=== PATIENT | female | born 1945 | race Two or more races ===

== ENCOUNTER 2024-06-21 09:10 | Inpatient (IN) | payer MEDICARE, OTHER ==
[~2024-06-21] VITALS: Ht 157.5 cm; Wt 62.0 kg
--- NOTE | 2024-06-21 09:26 | ED.PDOC ---
HPI Comments 79-year-old female presents with a chief complaint of chest pain x 2 weeks intermittently with associated headache. Patient states that her chest pain is localized substernally, non-radiating, describes as pressure, and is intermittent compared to constant. Patient reports that she also has a throbbing-like headache. Patient mentions that the pain has been gradually increasing over the past x 2 weeks. 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 Family History Family History: Reviewed,noncontributory to illness Social History Smoker: Non-Smoker Alcohol: Denies ETOH Use Drugs: Denies Drug Use Lives In: Home Constitutional: denies: chills, diaphoresis, fatigue, fever, malaise, sweats, weakness, others EENTM: denies: blurred vision, double vision, ear bleeding, ear discharge, ear drainage, ear pain, ear ringing, eye pain, eye redness, hearing loss, mouth pain, mouth swelling, nasal discharge, nose bleeding, nose congestion, nose pain, photophobia, tearing, throat pain, throat swelling, voice changes, others Respiratory: denies: cough, hemoptysis, orthopnea, SOB at rest, shortness of breath, SOB with excertion, stridor, wheezing, others Cardiovascular: reports: chest pain; denies: dizzy spells, diaphoresis, Dyspnea on exertion, edema, irregular heart beat, left arm pain, lightheadedness, palpitations, PND, syncope, others Gastrointestinal: denies: abdomen distended, abdominal pain, blood streaked bowels, constipated, diarrhea, dysphagia, difficulty swallowing, hematemesis, melena, nausea, poor appetite, poor fluid intake, rectal bleeding, rectal pain, vomiting, others Genitourinary: denies: abnormal vagina bleeding, burning, dyspareunia, dysuria, flank pain, frequency, hematuria, incontinence, pain, , vagina discharge, urgency, others Neurological: reports: headache; denies: dizziness, fainting, left sided numbness, left sided weakness, numbness, paresthesia, pre-existing deficit, right sided numbness, right sided weakness, seizure, speech problems, tingling, tremors, weakness, others Musculoskeletal: denies: back pain, gout, joint pain, joint swelling, muscle pain, muscle stiffness, neck pain, others Integumetry: denies: bruises, change in color, change in hair/nails, dryness, laceration, lesions, lumps, rash, wounds, others Allergic/Immunocompromised: denies: Difficulty Healing, Frequent Infections, Hives, Itching, others Hematologic/Lymphatic: denies: anemia, blood clots, easy bleeding, easy bruising, swollen glands, others Endocrine: denies: excessive hunger, excessive sweating, excessive thirst, excessive urination, flushing, intolerance to cold, intolerance to heat, unexplained weight gain, unexplained weight loss, others Psychiatric: denies: anxiety, bipolar disorder, depression, hopeless, panic disorder, schizophrenia, sleepless, suicidal, others All Other Systems: Reviewed and Negative Physical Exam General Appearance: No Apparent Distress, Normal HEENT: Normal ENT Inspection, Pharynx Normal, TMs Normal Neck: Full Range of Motion, Non-Tender, Normal, Normal Inspection Respiratory: Chest Non-Tender, Lungs Clear, No Accessory Muscle Use, No Respiratory Distress, Normal Breath Sounds Cardiovascular: No Edema, No JVD, No Murmur, No Gallop, Normal Peripheral Pulses, Regular Rate/Rhythm Breast Exam: Deferred Gastrointestinal: No Organomegaly, Non Tender, No Pulsatile Mass, Normal Bowel Sounds, Soft Genitalia: Deferred Pelvic: Deferred Rectal: Deferred Extremities: No calf tenderness, Normal capillary refill, Normal inspection, Normal range of motion, Non-tender, No pedal edema Musculoskeletal : Apperance: Normal Neurologic: Alert, 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 Was a procedure done?: No CP Differential Dx Differential Diagnosis: Electrolyte Disorder, Heart Failure, MAT, PAC's, PVC's Differential Diagnosis: CHF, HTN Essential, HTN Encephalopathy Differential Diagnosis: Gastritis X-Ray, Labs, Meds, VS Vital Signs Date Time Temp Pulse Resp B/P (MAP) Pulse Ox O2 Delivery O2 Flow Rate FiO2 06/21/24 10:15 82 06/21/24 09:47 85 06/21/24 09:47 98.2 85 17 144/76 (98) 96 98.2 06/21/24 09:45 86 12 96 Room Air* 0 21 06/21/24 09:27 98.4 80 18 100/61 (74) 100 06/21/24 09:14 94 Lab Test 06/21/24 10:12 06/21/24 09:30 06/21/24 09:21 Range/Units Troponin I High Sensitivity < 3 L < 3 L </=34 ng/L Urine Color Light-yellow Yellow Urine Clarity Clear Clear Urine pH 6.0 5.0-9.0 Urine Specific [place] 1.009 1.001-1.035 Urine Protein Trace H Negative Urine Ketones Negative Negative Urine Blood Negative Negative /uL Urine Nitrite Negative Negative Urine Bilirubin Negative Negative Urine Urobilinogen Normal Negative mg/dL Urine Leukocyte Esterase Negative Negative /uL Urine RBC 1 0 - 4 /hpf Urine WBC <1 0 - 5 /hpf Urine Squamous Epithelial Cells Few <5 /hpf Urine Bacteria None seen None Seen /hpf Urine Glucose Normal Normal mg/dL White Blood Count 4.6 4.4-10.8 10^3/uL Red Blood Count 4.01 4.0-5.20 10^6/uL Hemoglobin 11.1 L 12.2-16.2 g/dL Hematocrit 34.1 L 36.0-46.0 % Mean Corpuscular Volume 84.9 80.0-100.0 fL Mean Corpuscular Hemoglobin 27.7 L 28.0-32.0 pg Mean Corpuscular Hemoglobin Concent 32.6 32.0-36.0 g/dL Red Cell Distribution Width 15.3 H 11.8-14.3 % Platelet Count 198 140-450 10^3/uL Mean Platelet Volume 8.2 6.9-10.8 fL Neutrophils (%) (Auto) 47.5 37.0-80.0 % Lymphocytes (%) (Auto) 39.4 10.0-50.0 % Monocytes (%) (Auto) 7.2 0.0-12.0 % Eosinophils (%) (Auto) 4.8 0.0-7.0 % Basophils (%) (Auto) 1.1 0.0-2.0 % Neutrophils # (Auto) 2.2 1.6-8.6 10 ^3/uL Lymphocytes # (Auto) 1.8 0.4-5.4 10 ^3/uL Monocytes # (Auto) 0.3 0-1.3 10 ^3/uL Eosinophils # (Auto) 0.2 0-0.8 10 ^3/uL Basophils # (Auto) 0.1 0-0.2 10 ^3/uL Nucleated Red Blood Cells 0.0 % Sodium Level 141 136-145 mmol/L Potassium Level 3.7 3.5-5.1 mmol/L Chloride Level 106 98-107 mmol/L Carbon Dioxide Level 27 20-31 mmol/L Anion Gap 8 5-15 Blood Urea Nitrogen 14 9-23 mg/dL Creatinine 1.04 H 0.550-1.02 mg/dL Glomerular Filtration Rate Calc 54 >90 mL/min BUN/Creatinine Ratio 13.5 10.0-20.0 Serum Glucose 171 H 74-106 mg/dL Calcium Level 9.4 8.7-10.4 mg/dL Time of 1ST Reevaluation: 09:48 Reevaluation 1ST: Unchanged Patient Education/Counseling: Diagnosis, Treatment, Prognosis Family Education/Counseling: Diagnosis, Treatment, Prognosis Departure 1 Departure Time of Disposition: 11:31 (Patient presented with chest pain that was concerning for possible STEMI, ACS, PE, Pneumonia, Muscle Strain, COPD, Dissection. Data: 1. I ordered and reviewed the result of at least 3 labs including a CBC, BMP, and Troponin. 2. I independently interpreted the following tests: EKG which shows normal sinus and Chest X-ray which shows benign chest.Risk:This patient has a high risk of morbidity due to further diagnostic testing or treatment and may suffer from an acute cardiac or respiratory disorder. Workup reveals concern for ACS and patient should be admitted for further workup and possible expert consultation. ) Impression: Primary Impression: Acute chest pain Additional Impression: Generalized weakness Disposition: ADMITTED INPATIENT Admit to: Med Surg Condition: Serious Critical Care Note Critical Care Time?: Yes Critical care comment: Acute chest pain Authorized and Performed by: Candi Adames MD Total critical care time: Approximately 39 minutes Due to a high probability of clinically significant, life threatening deterioration, the patient required my highest level of preparedness to intervene emergently and I personally spent this critical care time directly and personally managing the patient. This critical care time included obtaining a history; examining the patient; pulse oximetry; ordering and review of studies; arranging urgent treatment with development of a management plan; evaluation of patient's response to treatment; frequent reassessment; and, discussions with other providers. This critical care time was performed to assess and manage the high probability of imminent, life-threatening deterioration that could result in multi-organ failure. It was exclusive of separately billable procedures and treating other patients and teaching time. Please see my other sections and the rest of the note for further information on patient assessment and treatment. Stability Stability form required: No Heart Score Heart Score: Heart Score Response (Comments) Value History Moderate Suspicious 1 EKG Repolarization Disturb 1 Age >65 2 Risk Factors >3 or Hx ASHD 2 Troponin 1-2 x's Normal limit 1 Total 7 I personally scribed for CANDI ADAMES MD ([email or web address]) on 06/21/24 at 09:26. Electronically submitted by Alejandro Pozo ([email or web address]). CANDI ADAMES MD Jun 21, 2024 09:26
[2024-06-21 09:45] VITALS: PULSE 86; RESP 12; O2SAT 96
[2024-06-21 09:47] LABS: Basophils # (auto) 0.1 10 ^3/uL (0-0.2); Basophils % (auto) 1.1 % (0.0-2.0); Eosinophils # (auto) 0.2 10 ^3/uL (0-0.8); Eosinophils % (auto) 4.8 % (0.0-7.0); Hematocrit 34.1 % (36.0-46.0); Hemoglobin 11.1 g/dL (12.2-16.2); Lymphocytes # (auto) 1.8 10 ^3/uL (0.4-5.4); Lymphocytes % (auto) 39.4 % (10.0-50.0); Mean Corpuscular Hemoglobin 27.7 pg (28.0-32.0); Mean Corpuscular Hgb Conc. 32.6 g/dL (32.0-36.0); Mean Corpuscular Volume 84.9 fL (80.0-100.0); Monocytes # (auto) 0.3 10 ^3/uL (0-1.3); Monocytes % (auto) 7.2 % (0.0-12.0); Neutrophils # (auto) 2.2 10 ^3/uL (1.6-8.6); Neutrophils % (auto) 47.5 % (37.0-80.0); Platelet Count (auto) 198 10^3/uL (140-450); Red Blood Cells 4.01 10^6/uL (4.0-5.20); Red Cell Distribution Width 15.3 % (11.8-14.3); White Blood Cell 4.6 10^3/uL (4.4-10.8)
[2024-06-21 09:50] LABS: Urine Bacteria None Seen /hpf (None Seen)
[2024-06-21 10:02] LABS: Anion Gap 8 (5-15); Carbon Dioxide 27 mmol/L (20-31); Chloride 106 mmol/L (98-107); Potassium 3.7 mmol/L (3.5-5.1); Sodium 141 mmol/L (136-145)
[2024-06-21 10:03] LABS: Calcium 9.4 mg/dL (8.7-10.4)
[2024-06-21 10:06] LABS: Urine Blood Negative /uL (Negative); Urine Clarity Clear (Clear); Urine Color Light-Yellow (Yellow); Urine Protein, UAD TRACE (Negative); Urine Specific Gravity 1.009 (1.001-1.035); Urine Urobilinogen Normal (Negative); Urine WBC <1 /hpf (0 - 5)
[2024-06-21 10:07] LABS: Glucose 171 mg/dL (74-106)
[2024-06-21 10:08] LABS: BUN/Creatinine Ratio 13.5 (10.0-20.0); Blood Urea Nitrogen 14 mg/dL (9-23)
--- NOTE | 2024-06-21 10:11 | DVH ---
CHEST RADIOGRAPH Indication: chest pain Technique: Single frontal view of the chest was obtained COMPARISON: None FINDINGS: Lines and Tubes: Left chest wall pacemaker Lungs: Pulmonary vascular congestion. Pleura: No effusion. No pneumothorax. Cardiomediastinal contours: Cardiomegaly Bones: Unremarkable IMPRESSION: Mild pulmonary vascular congestion
[2024-06-21] MEDS ORDERED: LORazepam 0.5 MG TAB PO PRN (11:45)
[2024-06-21] MEDS ORDERED: ONDANSETRON HCL 4 MG/2 ML VIAL IV PRN (11:45)
[2024-06-21] MEDS ORDERED: DEXTROSE (50%) 50ML SYRG IV PRN (11:45)
[2024-06-21] MEDS ORDERED: ZOLPIDEM TARTRATE 5 MG TAB PO PRN (11:45)
[2024-06-21] MEDS: ACCU-CHEK COMFORT CURVE STRIP VI SCH (12:00)
[2024-06-21] MEDS: InsuLIN REG 1unit/0.01ml Soln (100units/ml) SC SCH (12:00)
--- NOTE | 2024-06-21 12:22 | DVHHP2 ---
History of Present Illness Reason for Visit: Chest pain History of Present Illness 79-year-old obese patient with complaints of chest pain for the last few weeks patient denies having any medical history however on evaluation in the ED patient was shown to be both hypertensive as well as showing signs of hyperglycemia patient has no confirmation of having these issues however patient will be admitted to the hospital on ED recommendation for acute treatment assessment and continued evaluation for intractable chest pain on and off intermittently for the past 2 weeks to rule out ACS Review of Systems Constitutional: Yes: Weakness; No: Fever, Chills, Sweats, Malaise, Other Eyes: No: Pain, Vision change, Conjunctivae inflammation, Eyelid inflammation, Other, Redness ENT: No: Ear pain, Ear discharge, Nose pain, Nose discharge, Nose congestion, Mouth pain, Mouth swelling, Throat pain, Throat swelling, Other Respiratory: No: Cough, Dry, Shortness of breath, SOB with excertion, Wheezing, Hemoptysis, Pleuritic Pain, Sputum, Wheezing, Other Cardiovascular: Chest Pain, Palpitations; No: Orthopnea, Paroxysmal Noc. Dyspnea, Edema, Lt Headedness, Other Gastrointestinal: No: Nausea, Vomiting, Abdominal Pain, Diarrhea, Constipation, Melena, Hematochezia, Other Genitourinary: No Dysuria, No Frequency, No Incontinence, No Hematuria, No Retention, No Other Musculoskeletal: No: other, neck pain, shoulder pain, arm pain, back pain, hand pain, leg pain, foot pain Skin: No: Rash, Lesions, Jaundice, Bruising, Other Neurological: No: Weakness, Numbness, Incoordination, Change in speech, Co nfusion, Seizures, Other Allergies: Coded Allergies: NO KNOWN ALLERGIES (Unverified , 06/21/24) Medications Current Medications Medications Dose Ordered Sig/Becca Route Start Time Stop Time Status Last Admin Dose Admin Aspirin 81 mg DAILY PO 06/22/24 10:00 Clopidogrel Bisulfate 75 mg DAILY PO 06/22/24 10:00 Atorvastatin Calcium 40 mg HS PO 06/21/24 22:00 Carvedilol 6.25 mg Q12HR PO 06/21/24 22:00 Lisinopril 5 mg DAILY PO 06/22/24 10:00 Acetaminophen 650 mg Q6HP PRN PO 06/21/24 11:45 Zolpidem Tartrate 5 mg QHSP PRN PO 06/21/24 11:45 Lorazepam 0.5 mg Q6HP PRN PO 06/21/24 11:45 Docusate Sodium 100 mg DAILY PO 06/22/24 10:00 Ondansetron HCl 4 mg Q4HP PRN IV 06/21/24 11:45 Diagnostic Test (Pha) 1 strip IQ4HR 06/21/24 12:00 Insulin Human Regular IQ4HR SC 06/21/24 12:00 Dextrose 50 ml UD PRN IV 06/21/24 11:45 Exam Vital Signs Vital Signs Date Time Temp Pulse Resp B/P (MAP) Pulse Ox O2 Delivery O2 Flow Rate FiO2 06/21/24 10:15 82 06/21/24 09:47 98.2 17 144/76 (98) 96 98.2 06/21/24 09:45 Room Air* 0 21 General Appearance: Alert, Oriented X3, Cooperative HEENT: Atraumatic, PERRLA Respiratory: Clear to auscultation, Normal air movement Cardiovascular: Normal S1, Normal S2 Abdominal: Normal bowel sounds, Soft, No tenderness Extremities: No clubbing, No cyanosis Skin: No rashes, No breakdown Neuro: Normal gait, Normal speech Psych/Mental Status: Mood NL Labs/Xrays Labs Test 06/21/24 10:12 06/21/24 09:30 06/21/24 09:21 Range/Units Troponin I High Sensitivity < 3 L </=34 ng/L Urine Color Light-yellow Yellow Urine Clarity Clear Clear Urine pH 6.0 5.0-9.0 Urine Specific [place] 1.009 1.001-1.035 Urine Protein Trace H Negative Urine Ketones Negative Negative Urine Blood Negative Negative /uL Urine Nitrite Negative Negative Urine Bilirubin Negative Negative Urine Urobilinogen Normal Negative mg/dL Urine Leukocyte Esterase Negative Negative /uL Urine RBC 1 0 - 4 /hpf Urine WBC <1 0 - 5 /hpf Urine Squamous Epithelial Cells Few <5 /hpf Urine Bacteria None seen None Seen /hpf Urine Glucose Normal Normal mg/dL White Blood Count 4.6 4.4-10.8 10^3/uL Red Blood Count 4.01 4.0-5.20 10^6/uL Hemoglobin 11.1 L 12.2-16.2 g/dL Hematocrit 34.1 L 36.0-46.0 % Mean Corpuscular Volume 84.9 80.0-100.0 fL Mean Corpuscular Hemoglobin 27.7 L 28.0-32.0 pg Mean Corpuscular Hemoglobin Concent 32.6 32.0-36.0 g/dL Red Cell Distribution Width 15.3 H 11.8-14.3 % Platelet Count 198 140-450 10^3/uL Mean Platelet Volume 8.2 6.9-10.8 fL Neutrophils (%) (Auto) 47.5 37.0-80.0 % Lymphocytes (%) (Auto) 39.4 10.0-50.0 % Monocytes (%) (Auto) 7.2 0.0-12.0 % Eosinophils (%) (Auto) 4.8 0.0-7.0 % Basophils (%) (Auto) 1.1 0.0-2.0 % Neutrophils # (Auto) 2.2 1.6-8.6 10 ^3/uL Lymphocytes # (Auto) 1.8 0.4-5.4 10 ^3/uL Monocytes # (Auto) 0.3 0-1.3 10 ^3/uL Eosinophils # (Auto) 0.2 0-0.8 10 ^3/uL Basophils # (Auto) 0.1 0-0.2 10 ^3/uL Nucleated Red Blood Cells 0.0 % Sodium Level 141 136-145 mmol/L Potassium Level 3.7 3.5-5.1 mmol/L Chloride Level 106 98-107 mmol/L Carbon Dioxide Level 27 20-31 mmol/L Anion Gap 8 5-15 Blood Urea Nitrogen 14 9-23 mg/dL Creatinine 1.04 H 0.550-1.02 mg/dL Glomerular Filtration Rate Calc 54 >90 mL/min BUN/Creatinine Ratio 13.5 10.0-20.0 Serum Glucose 171 H 74-106 mg/dL Calcium Level 9.4 8.7-10.4 mg/dL Assessment/Plan Assessment/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 Chest pain ACS rule out Chest pain protocol Continue with new stated medications including aspirin beta-blockers lisinopril Patient with no stated history we will continue medications while inpatient and ruling out acute ACS Trips so far negative Patient with no stated history of diabetes However hypoglycemia noted We will do insulin sliding scale inpatient moderate q.4 Plan discussed with: Patient My Orders Orders - NIDIA CAO MD Procedure Category Date Status Time Admit ADMIT 06/21/24 Transmitted 11:35 Code Status CODE 06/21/24 Transmitted 11:35 Aspirin Tablet PHA 06/22/24 In Process 10:00 Clopidogrel Bisulfate PHA 06/22/24 In Process (Plavix) 10:00 Atorvastatin (Lipitor) PHA 06/21/24 In Process 22:00 Carvedilol Tablet PHA 06/21/24 In Process (Coreg Tablet) 22:00 Lisinopril Tablet PHA 06/22/24 In Process (Zestril Tablet) 10:00 Acetaminophen Tablet PHA 06/21/24 In Process (Tylenol Tablet) 11:45 Zolpidem Tartrate PHA 06/21/24 In Process (Ambien) 11:45 Lorazepam Tablet PHA 06/21/24 In Process (Ativan Tablet) 11:45 Docusate Sodium PHA 06/22/24 In Process Capsule (Colace 10:00 Complete Blood Count LAB 06/22/24 Verified 04:00 Basic Metabolic Panel LAB 06/22/24 Verified 04:00 Ondansetron Hcl PHA 06/21/24 In Process (Zofran) 11:45 Electrocardigram EKG 06/21/24 Logged 11:35 Cardiac JESSICA 06/21/24 In Process Rehabilitation - Outpa Notify Md Of Changes JESSICA 06/21/24 In Process From Base 11:35 Oxygen By Nasal RT 06/21/24 Transmitted Cannula 11:35 Glucose Blood PHA 06/21/24 In Process (Accu-Chek Comfort 12:00 Insulin R (Human) PHA 06/21/24 In Process (Insulin R) 12:00 Dextrose 50% Syringe PHA 06/21/24 In Process 11:45 Problem List: (1) Generalized weakness (2) Acute chest pain Date of Service: Jun 21, 2024 Billing Provider: NIDIA CAO MD Common Visit Codes: [id number] INP/OBS CARE (HIGH) NIDIA CAO MD Jun 21, 2024 12:22
[2024-06-21 12:34] VITALS: BP 153/76; PULSE 97; RESP 20; TEMP 97.8; O2SAT 95
[2024-06-21 12:48] VITALS: BP 153/76; PULSE 97; RESP 20; TEMP 97.8; O2SAT 95
[2024-06-21] MEDS ORDERED: APIX2.5T PO (13:03)
[2024-06-21] MEDS ORDERED: CETI10CA PO (13:04)
[2024-06-21] MEDS ORDERED: ERGO1CAP23 PO (13:09)
[2024-06-21] MEDS ORDERED: FLUO20TA42 PO (13:10)
[2024-06-21] MEDS ORDERED: FURO20TA3 PO (13:14)
[2024-06-21] MEDS ORDERED: ATOR40TA52 PO (13:15)
[2024-06-21] MEDS ORDERED: METO-289 PO (13:16)
[2024-06-21] MEDS ORDERED: MEMA1CAP3 PO ×2 (13:22→13:23)
[2024-06-21] MEDS ORDERED: POTA-36 PO (13:24)
[2024-06-21 17:34] VITALS: BP 149/70; PULSE 80; RESP 18; TEMP 98.3; O2SAT 95
--- NOTE | 2024-06-21 18:20 | ECG ---
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
--- NOTE | 2024-06-21 18:30 | ECG ---
[facility] Test Date: 2024-06-21 Test Time: 10:15:02 Pat Name: JOSEPH WALTON Department: ER Room: 0220 Gender: F Cook Night: LULÚ : 1945 Requested By: CANDI DE LOS SANTOS Order Number: [id number] Reading MD: Bry Simon Measurements Intervals [place] Rate: 82 P: 0 [place]: 0 QRS: 21 QRSD: 99 T: -12 QT: 452 QTc: 528 Interpretive Statements Atrial fibrillation Anteroseptal infarct, age indeterminate Borderline T abnormalities, inferior leads Prolonged QT interval Electronically Signed On 06-22-2024 14:16:10 PST by Bry Simon Please click the below link to view image of tracing.
--- NOTE | 2024-06-21 18:39 | ECG ---
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
[2024-06-21] MEDS: ACETAMINOPHEN 325 MG TAB PO PRN (20:10)
[2024-06-21] MEDS: ATORVASTATIN 20 MG TAB PO SCH (20:48)
[2024-06-21] MEDS: CARVEDILOL 3.125 MG TAB PO SCH (20:49)
[2024-06-21 21:10] VITALS: BP 142/75; PULSE 92; RESP 17; TEMP 98.1; O2SAT 96
[2024-06-21 22:00] VITALS: PULSE 94; RESP 18; O2SAT 96
[2024-06-22] VITALS (10 sets, daily range): BP systolic 100–135; BP diastolic 48–76; PULSE 62–85; RESP 15–19; TEMP 97.7–98.4; O2SAT 91–100
[2024-06-22 07:01] LABS: Basophils # (auto) 0 10 ^3/uL (0-0.2); Basophils % (auto) 0.8 % (0.0-2.0); Eosinophils # (auto) 0.2 10 ^3/uL (0-0.8); Eosinophils % (auto) 4.9 % (0.0-7.0); Hematocrit 31.4 % (36.0-46.0); Hemoglobin 10.4 g/dL (12.2-16.2); Lymphocytes % (auto) 45.3 % (10.0-50.0); Mean Corpuscular Hemoglobin 28.2 pg (28.0-32.0); Mean Corpuscular Hgb Conc. 33.2 g/dL (32.0-36.0); Mean Corpuscular Volume 84.8 fL (80.0-100.0); Monocytes # (auto) 0.3 10 ^3/uL (0-1.3); Monocytes % (auto) 7.8 % (0.0-12.0); Neutrophils # (auto) 1.8 10 ^3/uL (1.6-8.6); Neutrophils % (auto) 41.2 % (37.0-80.0); Nucleated Red Blood Cells % 0.2 %; Platelet Count (auto) 181 10^3/uL (140-450); Red Cell Distribution Width 15.3 % (11.8-14.3); White Blood Cell 4.4 10^3/uL (4.4-10.8)
[2024-06-22 07:06] LABS: Calcium 9.3 mg/dL (8.7-10.4); Chloride 107 mmol/L (98-107); Potassium 3.7 mmol/L (3.5-5.1); Sodium 139 mmol/L (136-145)
[2024-06-22 07:07] LABS: Anion Gap 5 (5-15); Carbon Dioxide 27 mmol/L (20-31)
[2024-06-22 07:12] LABS: BUN/Creatinine Ratio 15.6 (10.0-20.0); Blood Urea Nitrogen 15 mg/dL (9-23); Glucose 101 mg/dL (74-106)
[2024-06-22] MEDS: CLOPIDOGREL BISULFATE 75 MG TAB PO SCH (10:16)
[2024-06-22] MEDS: DOCUSATE SOD 100 MG CAP PO SCH (10:17)
[2024-06-22] MEDS: ASPirin 81 mg TAB PO SCH (10:17)
[2024-06-22] MEDS: LISINOPRIL 5 MG TAB PO SCH (10:19)
[2024-06-22] MEDS: HYDROcodone-ACET 5/325MG TAB PO PRN (11:46)
--- NOTE | 2024-06-22 12:32 | DVH ---
INDICATION: left leg pain COMPARISON: None TECHNIQUE: 3 views of the lumbar spine were obtained. FINDINGS: The lumbar vertebral alignment is normal. The intervertebral disc spaces are well-maintained. There is facet arthropathy at L4-L5 and L5-S1. No acute fracture. The paravertebral soft tissues are grossly unremarkable. IMPRESSION: 1. No acute fracture. 2. Facet arthropathy at L4-L5 and L5-S1.
--- NOTE | 2024-06-22 12:49 | DVHINCON2 ---
Date Seen: Jun 22, 2024 Referring Physician MD Janey Reason for Consultation Chest pain History of Present Illness This is a pleasant Swazi speaking 79-year-old female who presented to the emergency room with a chief complaint of chest pain x1 week. Describes her chest pain as left-sided, nonradiating, pressure-like, worse with exertion and associated with shortness of breath and palpitations. She underwent a 12 lead electrocardiogram revealing an atrial fibrillation rhythm at a controlled rate with non-specific changes to inferior leads. Serial troponin levels are negative. Follows up in the outpatient setting with primary auto design checker in [facility] with latest appointment being last month. States she moved to this area approximately 4 months ago and plans to transfer medical services in the near future. Denies undergoing any cardiac catheterizations and coronary angiograms in the past. Significant medical history includes unspecified atrial fibrillation on low-dose Eliquis/off antiarrhythmic, status post dual-chamber pacemaker implantation (Biotronik, 2016), hypertension, dyslipidemia, and anemia. Past Medical History Past medical history reviewed. No other significant than mentioned above. Past Surgical History Permanent pacemaker implantation (Biotronik), 2016 Family History: Cardiovascular disease G8 MOTHER, FHx: stomach cancer G8 FATHER, Family History Family history reviewed. Social History Denies the use of illicit drugs, alcohol, or tobacco use. Allergies: Coded Allergies: NO KNOWN ALLERGIES (Unverified , 06/21/24) Home Meds Reported Medications Potassium Chloride (POTASSIUM CHLORIDE CR) 10 Meq Tb, 8 MEQ PO DAILY, TAB 06/21/24 Memantine HCl-Donepezil HCl (Namzaric 7-10 mg) 1 Cap Cap, 1 CAP PO DAILY for MEMORY, CAP 06/21/24 Metoprolol Succinate (Metoprolol Succinate Er) 50 Mg Tab, 1 TAB PO DAILY, #30 TAB 5 Refills 06/21/24 Atorvastatin Calcium (ATORVASTATIN CALCIUM) 40 Mg Tab, 1 TAB PO AT NIGHT, #30 TAB 5 Refills 06/21/24 Furosemide (Furosemide) 20 Mg Tab, 1 TAB PO DAILY, #90 TAB 1 Refill 06/21/24 Fluoxetine Hcl (Fluoxetine Hcl) 20 Mg Tab, 0.5 TAB PO DAILY, #90 TAB 3 Refills 06/21/24 Ergocalciferol (VITAMIN D 13725 UNIT) 50,000 [place], [address] UNIT PO ONCE AT WEEK, CAP 06/21/24 Cetirizine Hcl (Zyrtec Allergy) 10 Mg Cap, 10 MG PO DAILY, CAP 06/21/24 Apixaban Base (ELIQUIS) 2.5 Mg Tab, 2.5 MG PO BID, TAB 06/21/24 Home Meds Home medications reviewed. Current Medications Current Medications Medications (Trade) Dose Ordered Sig/Becca Route PRN Reason Start Time Stop Time Status Last Admin Aspirin 81 mg DAILY PO 06/22/24 10:00 06/22/24 10:17 Clopidogrel Bisulfate (Plavix) 75 mg DAILY PO 06/22/24 10:00 06/22/24 10:16 Atorvastatin Calcium (Lipitor) 40 mg HS PO 06/21/24 22:00 06/21/24 20:48 Carvedilol (Coreg Tablet) 6.25 mg Q12HR PO 06/21/24 22:00 06/22/24 10:18 Lisinopril (Zestril Tablet) 5 mg DAILY PO 06/22/24 10:00 06/22/24 10:19 Docusate Sodium (Colace Capsule) 100 mg DAILY PO 06/22/24 10:00 06/22/24 10:17 Acetaminophen/ Hydrocodone Bitart ([employer] 5/325MG Tab) 1 tab Q6HPRN PRN PO MODERATE PAIN (4-6 PAIN SCALE) 06/22/24 11:00 06/22/24 11:46 Review of Systems Constitutional: No symptom reported Ears, Nose, & Throat: No symptom reported Eyes: No symptom reported Neurological: No symptoms reported Pulmonary/Respiratory: SOB Cardiovascular: Chest pain, palpitations Gastrointestinal: No symptom reported Genitourinary: No symptom reported Musculoskeletal: No symptom reported Skin: No symptom reported Psychiatric: No symptom reported Endocrine: No symptom reported Hemotologic/Lymphatic: No symptom reported Vital Signs Vital Signs Date Time Temp Pulse Resp B/P (MAP) Pulse Ox O2 Delivery O2 Flow Rate FiO2 06/22/24 10:19 115/67 06/22/24 10:18 85 06/22/24 08:59 97.9 19 95 97.9 06/21/24 22:00 Room Air* 0 21 Physical Exam General Appearance: Cooperative. Well developed. Well nourished. In no acute distress Head Exam: Normal inspection Neck Exam: Normal inspection. Non-tender. Normal alignment Pulmonary/Respiratory: Chest non-tender. Diminished bilateral breath sounds Cardiovascular/Chest: Irregularly irregular rate and rhythm. AFib, controlled rate. No murmurs. No JVD. Peripheral Pulses: 2+ Radial (R). 2+ Radial (L). 2+ Pedal (R). 2+ Pedal (L) Abdominal Exam: Normal bowel sounds. Soft. Nontender. No hepatospenomegaly. No masses Ankle Exam: Negative ankle edema Lower extremities: Negative lower extremity edema Neuro/Mental Status: A&O x4. Coherent Thoughts/Psych: Normal thought pattern. Appropriate mood and affect. Good judgement and insight. Pleasant Appearance: In no acute distress Skin Exam: Normal inspection. Normal color. Warm. Dry Labs/Diagnostic Data Labs Test 06/22/24 06:04 06/22/24 04:12 06/21/24 12:25 06/21/24 09:30 Range/Units White Blood Count 4.4 4.4-10.8 10^3/uL Red Blood Count 3.70 L 4.0-5.20 10^6/uL Hemoglobin 10.4 L 12.2-16.2 g/dL Hematocrit 31.4 L 36.0-46.0 % Mean Corpuscular Volume 84.8 80.0-100.0 fL Mean Corpuscular Hemoglobin 28.2 28.0-32.0 pg Mean Corpuscular Hemoglobin Concent 33.2 32.0-36.0 g/dL Red Cell Distribution Width 15.3 H 11.8-14.3 % Platelet Count 181 140-450 10^3/uL Mean Platelet Volume 8.5 6.9-10.8 fL Neutrophils (%) (Auto) 41.2 37.0-80.0 % Lymphocytes (%) (Auto) 45.3 10.0-50.0 % Monocytes (%) (Auto) 7.8 0.0-12.0 % Eosinophils (%) (Auto) 4.9 0.0-7.0 % Basophils (%) (Auto) 0.8 0.0-2.0 % Neutrophils # (Auto) 1.8 1.6-8.6 10 ^3/uL Lymphocytes # (Auto) 2.0 0.4-5.4 10 ^3/uL Monocytes # (Auto) 0.3 0-1.3 10 ^3/uL Eosinophils # (Auto) 0.2 0-0.8 10 ^3/uL Basophils # (Auto) 0 0-0.2 10 ^3/uL Nucleated Red Blood Cells 0.2 % Sodium Level 139 136-145 mmol/L Potassium Level 3.7 3.5-5.1 mmol/L Chloride Level 107 98-107 mmol/L Carbon Dioxide Level 27 20-31 mmol/L Anion Gap 5 5-15 Blood Urea Nitrogen 15 9-23 mg/dL Creatinine 0.96 0.550-1.02 mg/dL Glomerular Filtration Rate Calc 59 >90 mL/min BUN/Creatinine Ratio 15.6 10.0-20.0 Serum Glucose 101 74-106 mg/dL Calcium Level 9.3 8.7-10.4 mg/dL POC Glucose 119 H 70-106 mg/dl Troponin I High Sensitivity < 3 L </=34 ng/L Urine Color Light-yellow Yellow Urine Clarity Clear Clear Urine pH 6.0 5.0-9.0 Urine Specific [place] 1.009 1.001-1.035 Urine Protein Trace H Negative Urine Ketones Negative Negative Urine Blood Negative Negative /uL Urine Nitrite Negative Negative Urine Bilirubin Negative Negative Urine Urobilinogen Normal Negative mg/dL Urine Leukocyte Esterase Negative Negative /uL Urine RBC 1 0 - 4 /hpf Urine WBC <1 0 - 5 /hpf Urine Squamous Epithelial Cells Few <5 /hpf Urine Bacteria None seen None Seen /hpf Urine Glucose Normal Normal mg/dL Assessment Pain rule out coronary artery disease Rule out structural heart disease Presence of dual-chamber pacemaker (Biotronik, 2016) Unspecified atrial fibrillation, on low-dose Eliquis/off antiarrhythmic Hypertension Dyslipidemia Plan/Recommendation (Dr. Cardozo) The patient with chest pain was offered a cardiac catheterization and coronary angiogram on 06/22/2024. Patient and daughter/caregiver decided to hold off from any invasive procedures and prefer to follow-up with primary auto design checker and PCP as outpatient. Daughter is adamant for the patient to undergo any invasive work-up at this facility. In the meantime, initiate preload reduction, re-establish low-dose Eliquis therapy, and metoprolol. Hold off on antiplatelet therapy given advanced age. In the setting of an unremarkable echocardiogram, there is no further cardiac work-up indicated at this time. Thank you for allowing us to participate in this patient's care. Please call if you have any questions or concerns. This medical document was created using an electronic medical record system with voice recognition software and computerized dictation system. Although this document has been carefully reviewed, there might still be some phonetic and typographical errors. Occasional wrong-word or ``sound-alike substitutions may have occurred due to the inherent limitations of voice recognition software. These areas are purely typographical due to imperfections of the software programs and do not reflect any compromise in the patient's medical care. Please read the chart carefully and recognize, using context, where these substitutions have occurred. Plan discussed with: Patient, Daughter, Other Date of Service: Jun 22, 2024 Billing Provider: MARI CARDOZO MD Cardiology Common Codes: [id number] INP/OBS CARE (High) DULCE MARIA ANGLIN [facility] Jun 22, 2024 12:49
--- NOTE | 2024-06-22 13:06 | DVHPN2 ---
Subjective Continue to complain of left-sided chest pain; also complaining of lower back pain radiating to left lower extremity; staff helped with translation from Citizen Of [place] Reviewed: Care Plan, H&P, Labs, Medications, Previous Orders, Radiology, Other (Consultation) Changes from previous H/P or p: No Changes Objective Vitals Vital Signs Date Time Temp Pulse Resp B/P (MAP) Pulse Ox O2 Delivery O2 Flow Rate FiO2 06/22/24 10:19 115/67 06/22/24 10:18 85 06/22/24 08:59 97.9 19 95 97.9 06/21/24 22:00 Room Air* 0 21 Intake/Output Intake and Output 06/22/24 07:00 Intake Total 280 ml Balance 280 ml Intake Oral 280 ml Exam Welcome Hostess was a female nurse General Appearance: Alert, Oriented X3, Cooperative, No acute distress HEENT: Atraumatic Lungs: Other (Scattered occasional crackles) Chest/Breasts: Other (Tender left chest wall just below the breast; pacemaker in place with no signs of infection/trauma) Cardiovascular: Other (Irregularly irregular) Abdomen: Normal bowel sounds, Soft, No tenderness Back: Midline Tenderness (Lower back) Extremities: No edema Neuro: Normal speech, Cranial nerves 3-12 NL Psych/Mental Status: Mental status NL, Mood NL Medications Current Medications Medications Dose Ordered Sig/Becca Route Start Time Stop Time Status Last Admin Dose Admin Aspirin 81 mg DAILY PO 06/22/24 10:00 06/22/24 10:17 81 MG Clopidogrel Bisulfate 75 mg DAILY PO 06/22/24 10:00 06/22/24 10:16 75 MG Atorvastatin Calcium 40 mg HS PO 06/21/24 22:00 06/21/24 20:48 40 MG Carvedilol 6.25 mg Q12HR PO 06/21/24 22:00 06/22/24 10:18 6.25 MG Lisinopril 5 mg DAILY PO 06/22/24 10:00 06/22/24 10:19 5 MG Acetaminophen 650 mg Q6HP PRN PO 06/21/24 11:45 06/22/24 04:18 650 MG Zolpidem Tartrate 5 mg QHSP PRN PO 06/21/24 11:45 Lorazepam 0.5 mg Q6HP PRN PO 06/21/24 11:45 Docusate Sodium 100 mg DAILY PO 06/22/24 10:00 06/22/24 10:17 100 MG Ondansetron HCl 4 mg Q4HP PRN IV 06/21/24 11:45 Diagnostic Test (Pha) 1 strip IQ4HR 06/21/24 12:00 06/22/24 10:17 1 STRIP Insulin Human Regular IQ4HR SC 06/21/24 12:00 Dextrose 50 ml UD PRN IV 06/21/24 11:45 Acetaminophen/ Hydrocodone Bitart 1 tab Q6HPRN PRN PO 06/22/24 11:00 06/22/24 11:46 1 TAB Laboratory Results Laboratory Tests 06/22/24 06:04 Chemistry Test 06/22/24 06:04 Calcium Level 9.3 mg/dL (8.7-10.4) Urinalysis Test 06/21/24 09:30 Urine Color Light-yellow (Yellow) Urine Clarity Clear (Clear) Urine pH 6.0 (5.0-9.0) Urine Specific [place] 1.009 (1.001-1.035) Urine Protein Trace (Negative) H Urine Ketones Negative (Negative) Urine Blood Negative /uL (Negative) Urine Nitrite Negative (Negative) Urine Bilirubin Negative (Negative) Urine Urobilinogen Normal mg/dL (Negative) Urine Leukocyte Esterase Negative /uL (Negative) Urine RBC 1 /hpf (0 - 4) Urine WBC <1 /hpf (0 - 5) Urine Squamous Epithelial Cells Few /hpf (<5) Urine Bacteria None seen /hpf (None Seen) Urine Glucose Normal mg/dL (Normal) Labs and/or images reviewed: Labs reviewed by me, Image(s) reviewed by me Assessment/Plan Assessment/Plan An 79-year-old female patient; Citizen Of [place]-speaking; with multiple comorbidities; who presented to the emergency department with left-sided chest pain. #Left-sided chest pain; ACS ruled out; telemetry; reviewed echocardiogram; received one dose of antiplatelets medications; not on antiplatelet due to advanced age as per cardiology; on statin; cardiology is following; continue and adjust pain management as indicated; reviewed chest x-ray; continue monitoring #Low back pain with left sciatica; ordered lumbosacral spine x-ray; continue and adjust pain management as indicated; continue monitoring #Undetermined atrial fibrillation; on low-dose anticoagulation; not on antiarrhythmic; has a pacemaker; cardiology is following; telemetry; continue monitoring #Controlled diabetes mellitus type 2 with A1c of 6.6%; continue insulin sliding scale with hypoglycemia protocol; continue monitoring #Dyslipidemia; continue statin; continue monitoring #Status post pacemaker; unclear for what indication but could be related to undetermined atrial fibrillation; cardiology is following; telemetry; continue monitoring #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 Although this document has been carefully reviewed, there might still be some phonetic and typographical errors. These areas are purely typographical due to imperfections of the software programs, and do not reflect any compromise in the patient's medical care. Plan discussed with: Patient, Daughter, Other (Nurse) My Orders Orders - ALBA PORTER MD Procedure Category Date Status Time Transfer Orders XFER 06/22/24 Transmitted 10:56 * Cardiology Consult CONS 06/22/24 Transmitted 10:56 Lumbar Spine 3 View XY 06/22/24 Resulted 10:56 Hydrocodone-Acet PHA 06/22/24 In Process 5/325mg Tab ([place] 11:00 Date of Service: Jun 22, 2024 Billing Provider: ALBA PORTER MD Common Visit Codes: [id number] INP/OBS CARE(HIGH) Secondary Visit Codes: [id number] CARE PLAN 30 MINUTES (20 minutes) ALBA PORTER MD Jun 22, 2024 13:06
[2024-06-22] MEDS: FUROSEMIDE 40 MG/4 ML VIAL IV ONE (13:30)
[2024-06-22 13:51] LABS: Magnesium 1.8 mg/dL (1.6-2.6)
[2024-06-22] MEDS: FUROSEMIDE 20 MG/2 ML VIAL IV SCH (16:48)
--- NOTE | 2024-06-22 17:50 | DVHSR ---
APPROVED REPORT EXAM: Two-dimensional and M-mode echocardiogram with Doppler and color Doppler. Blood Pressure: 115/67 mmHg INDICATION Chest Pain Surgery/Intervention Pacemaker: RISK FACTORS Height: 5' 2", Weight: 133 DIMENSIONS LVDd3.8 (3.8-5.7cm)LA (2D)4.7 (1.9-4.0cm)Aortic Root2.7 (2.0-3.7cm) LVDs2.7 (2.5-4.0cm)LA (MM) (1.9-4.0cm)Aortic Cusp Exc1.4 (1.5-2.0cm) EF (%) 58.0 (55-70%)Rt. Atrium5.0 (1.9-4.0cm)Asc. Aorta cm IVSd1.1 (0.7-1.1cm)RV (D) (1.8-2.4cm) PWd1.0 (0.7-1.1cm) Mitral Valve MitralMitral Stenosis E wave1.10m/sMV Mean GR.mmHg A wave0.20m/sMV Peak GR.mmHg E/A ratio5.52D MVAcm2 Aortic Valve Aortic ValveAortic Stenosis V10.60m/Christine Mean GR.5mmHg V21.50m/Christine Peak GR.10mmHg LVOT Diameter1.9 (1.8-2.4cm)Doppler AVA1.13cm2 AI P 1/2 [id number] Pulmonic Valve V20.80m/s Tricuspid Valve TR Velocity2.60m/s [id number] Conclusion Normal left ventricular size and dimension. Normal ventricular systolic function estimate ejection f raction 55%. There is a grade 1 diastolic dysfunction. Normal right ventricular size and dimension. Normal right ventricular systolic function. Mildly inc reased right ventricular systolic [id number] mm of mercury Moderate biatrial enlargement Normal aortic valve structure and function. There is mild aortic valve regurgitation. Moderately severe mitral valve regurgitation. There is moderate tricuspid valve regurgitation The pulmonary valve is grossly normal. No pericardial effusion.
[2024-06-22] MEDS: APIXABAN 2.5 MG TAB PO SCH (21:38)
[2024-06-23] VITALS (7 sets, daily range): BP systolic 99–119; BP diastolic 34–66; PULSE 75–120; RESP 14–19; TEMP 97.6–98.2; O2SAT 92–98
[2024-06-23 06:08] LABS: Basophils # (auto) 0 10 ^3/uL (0-0.2); Basophils % (auto) 0.8 % (0.0-2.0); Eosinophils # (auto) 0.2 10 ^3/uL (0-0.8); Eosinophils % (auto) 5.5 % (0.0-7.0); Hematocrit 32.5 % (36.0-46.0); Hemoglobin 10.8 g/dL (12.2-16.2); Lymphocytes # (auto) 2.1 10 ^3/uL (0.4-5.4); Lymphocytes % (auto) 46.7 % (10.0-50.0); Mean Corpuscular Hemoglobin 27.9 pg (28.0-32.0); Mean Corpuscular Hgb Conc. 33.2 g/dL (32.0-36.0); Monocytes # (auto) 0.4 10 ^3/uL (0-1.3); Monocytes % (auto) 8.3 % (0.0-12.0); Neutrophils # (auto) 1.7 10 ^3/uL (1.6-8.6); Neutrophils % (auto) 38.7 % (37.0-80.0); Nucleated Red Blood Cells % 0.1 %; Platelet Count (auto) 193 10^3/uL (140-450); Red Blood Cells 3.87 10^6/uL (4.0-5.20); Red Cell Distribution Width 15.1 % (11.8-14.3); White Blood Cell 4.5 10^3/uL (4.4-10.8)
[2024-06-23 06:26] LABS: Alanine Aminotransferase 21 U/L (7-40); Albumin 3.6 g/dL (3.2-4.8); Alkaline Phosphatase 61 U/L (46-116); Anion Gap 6 (5-15); Aspartate Aminotransferase 14 U/L (13-40); BUN/Creatinine Ratio 15.2 (10.0-20.0); Blood Urea Nitrogen 15 mg/dL (9-23); Calcium 9.3 mg/dL (8.7-10.4); Carbon Dioxide 29 mmol/L (20-31); Chloride 106 mmol/L (98-107); Sodium 141 mmol/L (136-145)
[2024-06-23 06:27] LABS: Bilirubin, Total 0.7 mg/dL (0.2-1.0)
[2024-06-23 06:46] LABS: Glucose 118 mg/dL (74-106); Potassium 3.4 mmol/L (3.5-5.1)
[2024-06-23] MEDS: METOPROLOL SUCCINATE XL 50 MG TAB PO SCH (10:00)
--- NOTE | 2024-06-23 12:33 | DVHPN2 ---
Subjective Still complaining of left-sided chest pain and of lower back pain radiating to left lower extremity; staff helped with translation from [place] Reviewed: Care Plan, H&P, Labs, Medications, Previous Orders, Radiology, Other (Consultation) Changes from previous H/P or p: No Changes Objective Vitals Vital Signs Date Time Temp Pulse Resp B/P (MAP) Pulse Ox O2 Delivery O2 Flow Rate FiO2 06/23/24 10:00 90 107/42 06/23/24 08:30 97.6 19 98 97.6 06/23/24 08:00 Room Air* 0 21 Intake/Output Intake and Output 06/23/24 07:00 Intake Total 1120 ml Balance 1120 ml Intake Oral 1120 ml # Voids 9 # Bowel Movements 2 Exam Programmer Or Analyst was a female nurse General Appearance: Alert, Oriented X3, Cooperative, No acute distress HEENT: Atraumatic Lungs: Other (Scattered occasional crackles) Chest/Breasts: Other (Tender left chest wall just below the breast; pacemaker in place with no signs of infection/trauma) Cardiovascular: Other (Irregularly irregular) Abdomen: Normal bowel sounds, Soft, No tenderness Back: Midline Tenderness (Lower back) Extremities: No edema Neuro: Normal speech, Cranial nerves 3-12 NL Psych/Mental Status: Mental status NL, Mood NL Medications Current Medications Medications Dose Ordered Sig/Becca Route Start Time Stop Time Status Last Admin Dose Admin Atorvastatin Calcium 40 mg HS PO 06/21/24 22:00 06/22/24 21:38 40 MG Acetaminophen 650 mg Q6HP PRN PO 06/21/24 11:45 06/22/24 04:18 650 MG Zolpidem Tartrate 5 mg QHSP PRN PO 06/21/24 11:45 Lorazepam 0.5 mg Q6HP PRN PO 06/21/24 11:45 Docusate Sodium 100 mg DAILY PO 06/22/24 10:00 06/23/24 09:31 100 MG Ondansetron HCl 4 mg Q4HP PRN IV 06/21/24 11:45 Diagnostic Test (Pha) 1 strip IQ4HR 06/21/24 12:00 06/23/24 09:31 1 STRIP Insulin Human Regular IQ4HR SC 06/21/24 12:00 06/22/24 19:48 2 UNITS Dextrose 50 ml UD PRN IV 06/21/24 11:45 Furosemide 20 mg BIDD IV 06/22/24 18:00 06/22/24 16:48 20 MG Apixaban 2.5 mg BID PO 06/22/24 22:00 06/23/24 09:31 2.5 MG Metoprolol Succinate 25 mg DAILY PO 06/23/24 10:00 Acetaminophen/ Hydrocodone Bitart 2 tab Q6HPRN PRN PO 06/23/24 11:30 Laboratory Results Laboratory Tests 06/23/24 05:31 Chemistry Test 06/23/24 05:31 Albumin 3.6 g/dL (3.2-4.8) Calcium Level 9.3 mg/dL (8.7-10.4) Total Protein 6.0 g/dL (5.7-8.2) LFT Test 06/23/24 05:31 Alanine Aminotransferase (ALT) 21 U/L (7-40) Alkaline Phosphatase 61 U/L (46-116) Aspartate Amino Transferase (AST) 14 U/L (13-40) Total Bilirubin 0.7 mg/dL (0.2-1.0) Urinalysis Test 06/21/24 09:30 Urine Color Light-yellow (Yellow) Urine Clarity Clear (Clear) Urine pH 6.0 (5.0-9.0) Urine Specific [place] 1.009 (1.001-1.035) Urine Protein Trace (Negative) H Urine Ketones Negative (Negative) Urine Blood Negative /uL (Negative) Urine Nitrite Negative (Negative) Urine Bilirubin Negative (Negative) Urine Urobilinogen Normal mg/dL (Negative) Urine Leukocyte Esterase Negative /uL (Negative) Urine RBC 1 /hpf (0 - 4) Urine WBC <1 /hpf (0 - 5) Urine Squamous Epithelial Cells Few /hpf (<5) Urine Bacteria None seen /hpf (None Seen) Urine Glucose Normal mg/dL (Normal) Labs and/or images reviewed: Labs reviewed by me, Image(s) reviewed by me Assessment/Plan Assessment/Plan An 79-year-old female patient; [place]-speaking; with multiple comorbidities; who presented to the emergency department with left-sided chest pain. #Left-sided chest pain; ACS ruled out; telemetry; reviewed echocardiogram; received one dose of antiplatelets medications; not on antiplatelet due to advanced age as per cardiology; on statin; cardiology is following; continue and adjust pain management as indicated; reviewed chest x-ray; continue monitoring #Low back pain with left sciatica; reviewed lumbosacral spine x-ray; ordered Doppler ultrasound of left lower extremities that showed no DVTs; continue and adjust pain management as indicated; continue monitoring #Undetermined atrial fibrillation; on low-dose anticoagulation; not on antiarrhythmic; has a pacemaker; cardiology is following; telemetry; continue monitoring #Controlled diabetes mellitus type 2 with A1c of 6.6%; continue insulin sliding scale with hypoglycemia protocol; continue monitoring #Dyslipidemia; continue statin; continue monitoring #Status post pacemaker; unclear for what indication but could be related to undetermined atrial fibrillation; cardiology is following; telemetry; continue monitoring #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; continue antihypertensive medication as indicated; continue monitoring #Acute on chronic diastolic heart failure; continue IV diuresis; telemetry; strict input and output monitoring; cardiology is following; continue monitoring #LAMAR; most likely vasomotor nephropathy; avoid nephrotoxic agents; continue monitoring #Hypokalemia due to diuresis; replace as needed; ordered magnesium level; continue monitoring #Prolonged QTc; telemetry; avoid medication that could prolonged QTc; cardiology is following; continue monitoring #Normocytic anemia; most likely inflammatory; no symptoms/signs of bleeding; continue monitoring This medical document was created using an electronic medical record system with computerized dictation system. Although this document has been carefully reviewed, there might still be some phonetic and typographical errors. These areas are purely typographical due to imperfections of the software programs, and do not reflect any compromise in the patient's medical care. Plan discussed with: Patient, Daughter, Other (Nurse) My Orders Orders - ALBA PORTER MD Procedure Category Date Status Time Hydrocodone-Acet PHA 06/23/24 In Process 5/325mg Tab ([place] 11:30 Lt Lower Dvt US 06/23/24 Taken 11:28 Date of Service: Jun 23, 2024 Billing Provider: ALBA PORTER MD Common Visit Codes: [id number] INP/OBS CARE(HIGH) ALBA PORTER MD Jun 23, 2024 12:33
--- NOTE | 2024-06-23 13:03 | DVH ---
Procedure: US LT Lower DVT Study Date and Requested Time: 06/23/2024 11:59 AM History: Pain Comparison: None Technique: Multiple high resolution jurado-scale images with and without compression obtained of the le ft lower extremity veins, including the common femoral vein, deep femoral vein, proximal mid and dist al superficial femoral vein, and popliteal vein. Additional limited images of the greater saphenous v ein also obtained. Augmentation performed as indicated. Color and spectral doppler flow images obtain ed as indicated. Findings: No visible intraluminal venous thrombus. No evidence of incompressibility or abnormal color or spectr al Doppler flow visualized in the left lower extremity veins including, the common femoral vein, deep femoral vein, proximal mid and distal superficial femoral vein, and popliteal vein. Greater saphenou s vein grossly unremarkable. Impression: No sonographic evidence of left lower extremity deep venous thrombosis.
[2024-06-23] MEDS: POTASSIUM EFFERVESENT TAB 25 MEQ PO ONE (16:36)
[2024-06-24] VITALS (8 sets, daily range): BP systolic 96–132; BP diastolic 38–58; PULSE 76–130; RESP 12–18; TEMP 97.4–98.3; O2SAT 93–97
[2024-06-24] MEDS: HYDROcodone-ACET 5/325MG TAB PO PRN (03:06)
[2024-06-24 07:07] LABS: Anion Gap 7 (5-15); Carbon Dioxide 28 mmol/L (20-31); Chloride 105 mmol/L (98-107); Potassium 3.7 mmol/L (3.5-5.1); Sodium 140 mmol/L (136-145)
[2024-06-24 07:08] LABS: Calcium 9.5 mg/dL (8.7-10.4)
[2024-06-24 07:13] LABS: BUN/Creatinine Ratio 15.3 (10.0-20.0); Blood Urea Nitrogen 13 mg/dL (9-23)
[2024-06-24 07:14] LABS: Glucose 116 mg/dL (74-106); Magnesium 1.6 mg/dL (1.6-2.6)
[2024-06-24] MEDS ORDERED: HYDROcodone-ACET 10/325MG TAB PO PRN (09:00)
[2024-06-24] MEDS: HYDROcodone-ACET 10/325MG TAB PO PRN (09:27)
[2024-06-24] MEDS ORDERED: HYDR-4798 PO (12:04)
--- NOTE | 2024-06-24 12:06 | DVHPN2 ---
Subjective Still complaining of left-sided chest pain and of lower back pain radiating to left lower extremity; staff helped with translation from Scottish Reviewed: Care Plan, H&P, Labs, Medications, Previous Orders, Radiology, Other (Consultation) Changes from previous H/P or p: No Changes Objective Vitals Vital Signs Date Time Temp Pulse Resp B/P (MAP) Pulse Ox O2 Delivery O2 Flow Rate FiO2 06/24/24 09:45 111 96/52 06/24/24 09:00 97.9 18 95 97.9 06/24/24 08:00 Room Air* 0 21 Intake/Output Intake and Output 06/24/24 07:00 Intake Total 1220 ml Output Total 0 ml Balance 1220 ml Intake Oral 1220 ml Output Stool Total 0 ml # Voids 4 Exam Copier Repair Technician was a female nurse General Appearance: Alert, Oriented X3, Cooperative, No acute distress HEENT: Atraumatic Lungs: Other (Scattered occasional crackles) Chest/Breasts: Other (Tender left chest wall just below the breast; pacemaker in place with no signs of infection/trauma) Cardiovascular: Other (Irregularly irregular) Abdomen: Normal bowel sounds, Soft, No tenderness Back: Midline Tenderness (Lower back) Extremities: No edema Neuro: Normal speech, Cranial nerves 3-12 NL Psych/Mental Status: Mental status NL, Mood NL Medications Current Medications Medications Dose Ordered Sig/Becca Route Start Time Stop Time Status Last Admin Dose Admin Atorvastatin Calcium 40 mg HS PO 06/21/24 22:00 06/23/24 21:21 40 MG Acetaminophen 650 mg Q6HP PRN PO 06/21/24 11:45 06/23/24 21:27 650 MG Zolpidem Tartrate 5 mg QHSP PRN PO 06/21/24 11:45 Lorazepam 0.5 mg Q6HP PRN PO 06/21/24 11:45 Docusate Sodium 100 mg DAILY PO 06/22/24 10:00 06/24/24 11:15 100 MG Ondansetron HCl 4 mg Q4HP PRN IV 06/21/24 11:45 Diagnostic Test (Pha) 1 strip IQ4HR 06/21/24 12:00 06/24/24 11:15 1 STRIP Insulin Human Regular IQ4HR SC 06/21/24 12:00 06/23/24 14:01 3 UNITS Dextrose 50 ml UD PRN IV 06/21/24 11:45 Furosemide 20 mg BIDD IV 06/22/24 18:00 06/23/24 16:42 20 MG Apixaban 2.5 mg BID PO 06/22/24 22:00 06/24/24 09:44 2.5 MG Metoprolol Succinate 25 mg DAILY PO 06/23/24 10:00 Acetaminophen/ Hydrocodone Bitart 1 tab Q6HP PRN PO 06/24/24 09:15 06/24/24 09:27 1 TAB Laboratory Results Laboratory Tests 06/23/24 05:31 06/24/24 05:57 Chemistry Test 06/24/24 05:57 Calcium Level 9.5 mg/dL (8.7-10.4) Magnesium Level 1.6 mg/dL (1.6-2.6) Urinalysis Test 06/21/24 09:30 Urine Color Light-yellow (Yellow) Urine Clarity Clear (Clear) Urine pH 6.0 (5.0-9.0) Urine Specific [place] 1.009 (1.001-1.035) Urine Protein Trace (Negative) H Urine Ketones Negative (Negative) Urine Blood Negative /uL (Negative) Urine Nitrite Negative (Negative) Urine Bilirubin Negative (Negative) Urine Urobilinogen Normal mg/dL (Negative) Urine Leukocyte Esterase Negative /uL (Negative) Urine RBC 1 /hpf (0 - 4) Urine WBC <1 /hpf (0 - 5) Urine Squamous Epithelial Cells Few /hpf (<5) Urine Bacteria None seen /hpf (None Seen) Urine Glucose Normal mg/dL (Normal) Labs and/or images reviewed: Labs reviewed by me, Image(s) reviewed by me Assessment/Plan Assessment/Plan An 79-year-old female patient; Scottish-speaking; with multiple comorbidities; who presented to the emergency department with left-sided chest pain. #Left-sided chest pain; ACS ruled out; telemetry; reviewed echocardiogram; received one dose of antiplatelets medications; not on antiplatelet due to advanced age as per cardiology; on statin; cardiology is following; continue and adjust pain management as indicated; reviewed chest x-ray; continue monitoring #Low back pain with left sciatica; reviewed lumbosacral spine x-ray; Doppler ultrasound of left lower extremities that showed no DVTs; continue and adjust pain management as indicated; continue monitoring #Undetermined atrial fibrillation; on low-dose anticoagulation; not on antiarrhythmic; has a pacemaker; cardiology is following; telemetry; continue monitoring #Controlled diabetes mellitus type 2 with A1c of 6.6%; continue insulin sliding scale with hypoglycemia protocol; continue monitoring #Dyslipidemia; continue statin; continue monitoring #Status post pacemaker; unclear for what indication but could be related to undetermined atrial fibrillation; cardiology is following; telemetry; continue monitoring #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; continue antihypertensive medication as indicated; continue monitoring #Acute on chronic diastolic heart failure; continue IV diuresis; telemetry; strict input and output monitoring; cardiology is following; continue monitoring #LAMAR; most likely vasomotor nephropathy; avoid nephrotoxic agents; continue monitoring #Hypokalemia due to diuresis; replace as needed; ordered magnesium level; continue monitoring #Prolonged QTc; telemetry; avoid medication that could prolonged QTc; cardiology is following; continue monitoring #Normocytic anemia; most likely inflammatory; no symptoms/signs of bleeding; continue monitoring Possible discharge later today This medical document was created using an electronic medical record system with computerized dictation system. Although this document has been carefully reviewed, there might still be some phonetic and typographical errors. These areas are purely typographical due to imperfections of the software programs, and do not reflect any compromise in the patient's medical care. Plan discussed with: Patient, Other (Nurse) My Orders Orders - ALBA PORTER MD Procedure Category Date Status Time Hydrocodone-Acet PHA 06/24/24 In Process 10/325mg Tab ([place] 09:15 Date of Service: Jun 24, 2024 Billing Provider: ALBA PORTER MD Common Visit Codes: [id number] INP/OBS CARE(MOD) ALBA PORTER MD Jun 24, 2024 12:06
[2024-06-25 01:00] VITALS: BP 110/55; PULSE 125; RESP 16; TEMP 98; O2SAT 95
[2024-06-25] MEDS: dilTIAZem 25 MG/5 ML VIAL IV ONE ×2 (02:15→05:09)
[2024-06-25 05:00] VITALS: BP 100/50; PULSE 90; RESP 16; TEMP 97.8; O2SAT 98
[2024-06-25 08:00] VITALS: PULSE 158
--- NOTE | 2024-06-25 08:58 | DVHPN2 ---
Consult Progress Note Date Seen: Jun 25, 2024 Subjective Review of Systems: CVS:Normal, RESPIRATORY:Normal, MSK:Abnormal, NEURO:Normal Other Systems: C/o LLE pain. Notified of A-fib with RVR Objective vital signs Vital Sign Date Time Temp Pulse Resp B/P (MAP) Pulse Ox O2 Delivery O2 Flow Rate FiO2 06/25/24 06:23 121/55 06/25/24 05:00 97.8 90 16 98 97.8 06/24/24 20:00 Room Air* 0 21 Total Intake and Output 06/24/24 06/24/24 06/25/24 15:00 23:00 07:00 Intake Total 180 ml 800 ml 450 ml Balance 180 ml 800 ml 450 ml medications Current Medications Medications Dose Ordered Sig/[place]cca Route Start Time Stop Time Status Last Admin Dose Admin Atorvastatin Calcium 40 mg HS PO 06/21/24 22:00 06/24/24 21:12 40 MG Acetaminophen 650 mg Q6HP PRN PO 06/21/24 11:45 06/23/24 21:27 650 MG Zolpidem Tartrate 5 mg QHSP PRN PO 06/21/24 11:45 Lorazepam 0.5 mg Q6HP PRN PO 06/21/24 11:45 Docusate Sodium 100 mg DAILY PO 06/22/24 10:00 06/24/24 11:15 100 MG Ondansetron HCl 4 mg Q4HP PRN IV 06/21/24 11:45 Diagnostic Test (Pha) 1 strip IQ4HR 06/21/24 12:00 06/25/24 04:18 1 STRIP Insulin Human Regular IQ4HR SC 06/21/24 12:00 06/25/24 04:18 2 UNITS Dextrose 50 ml UD PRN IV 06/21/24 11:45 Furosemide 20 mg BIDD IV 06/22/24 18:00 06/25/24 06:23 20 MG Apixaban 2.5 mg BID PO 06/22/24 22:00 06/24/24 21:13 2.5 MG Metoprolol Succinate 25 mg DAILY PO 06/23/24 10:00 Acetaminophen/ Hydrocodone Bitart 1 tab Q6HP PRN PO 06/24/24 09:15 06/25/24 02:21 1 TAB Examination: LUNGS:Normal, CVS:Abnormal (A-fib with RVR), NEURO:Normal laboratory and microbiology Laboratory Tests 06/24/24 05:57 06/23/24 05:31 Test 06/24/24 05:57 Range/Units Serum Glucose 116 H 74-106 mg/dL Problem List/Assessment/Plan Problem List/Assessment/Plan Chest pain rule out coronary artery disease Presence of dual-chamber pacemaker ([employer], 2016) Unspecified atrial fibrillation, on low-dose Eliquis/off antiarrhythmic Mitral valve regurgitation, moderate-severe Hypertension Dyslipidemia Plan/Recommendation (Dr. Cardozo) The patient with chest pain was offered a cardiac catheterization and coronary angiogram on 06/22/2024. Patient and daughter/caregiver decided to hold off from any invasive procedures and prefer to follow-up with primary flag signaler and PCP as outpatient. Daughter is adamant for the patient to undergo any invasive work-up at this facility. We recommend outpatient ischemic work-up as well as a TESSA to further determine need for mitral valve repair/replacement. Notified of atrial fibrillation with RVR. It was noted metoprolol therapy has been held for two days. Medicate with metoprolol if MAP > 65 mmHg. Load on digoxin therapy for rate control and continue maintenance dosage daily. Replete electrolytes, K>4 and Mg>2. Continue low-dose Eliquis therapy and hold off on antiplatelet therapy given advanced age. Consider daily blood work during admission. In the setting of a controlled rate, there is no further cardiac work-up indicated at this time. Thank you for allowing us to participate in this patient's care. Please call if you have any questions or concerns. This medical document was created using an electronic medical record system with voice recognition software and computerized dictation system. Although this document has been carefully reviewed, there might still be some phonetic and typographical errors. Occasional wrong-word or ``sound-alike substitutions may have occurred due to the inherent limitations of voice recognition software. These areas are purely typographical due to imperfections of the software programs and do not reflect any compromise in the patient's medical care. Please read the chart carefully and recognize, using context, where these substitutions have occurred. Plan discussed with: Patient, Other Date of Service: Jun 25, 2024 Billing Provider: MARI CARDOZO MD Cardiology Common Codes: [id number] [facility]ARE([facility] DULCE MARIA ANGLIN [facility] Jun 25, 2024 08:58
[2024-06-25 09:00] VITALS: BP 98/62; PULSE 135; RESP 17; TEMP 98; O2SAT 93
[2024-06-25] MEDS: MAGNESIUM SULFATE 1GM/100ML 100 ML IV ONE (09:46)
[2024-06-25] MEDS: POTASSIUM CHL 20 Meq TABLET PO ONE (09:49)
[2024-06-25] MEDS: DIGOXIN (250MCG/ML) 2 ML AMPULE IV ONE (09:49)
[2024-06-25] MEDS: ACCU-CHEK COMFORT CURVE STRIP VI SCH (10:15)
[2024-06-25] MEDS: InsuLIN REG 1unit/0.01ml Soln (100units/ml) SC SCH (11:45)
[2024-06-25 13:00] VITALS: BP 133/61; PULSE 79; RESP 17; TEMP 98.4; O2SAT 97
--- NOTE | 2024-06-25 13:14 | DVHDS2 ---
Discharge Summary Date of Admission Jun 21, 2024 at 11:35 Date of Discharge: Jun 25, 2024 Admitting Diagnosis Chest pain Labs/Diagnostic Data: Laboratory Results Test 06/25/24 08:15 06/24/24 05:57 06/23/24 05:31 06/22/24 06:04 POC Glucose 123 mg/dl (70-106) Sodium Level 140 mmol/L (136-145) Potassium Level 3.7 mmol/L (3.5-5.1) Chloride Level 105 mmol/L (98-107) Carbon Dioxide Level 28 mmol/L (20-31) Anion Gap 7 (5-15) Blood Urea Nitrogen 13 mg/dL (9-23) Creatinine 0.85 mg/dL (0.550-1.02) Glomerular Filtration Rate Calc 69 mL/min (>90) BUN/Creatinine Ratio 15.3 (10.0-20.0) Serum Glucose 116 mg/dL (74-106) Calcium Level 9.5 mg/dL (8.7-10.4) Magnesium Level 1.6 mg/dL (1.6-2.6) White Blood Count 4.5 10^3/uL (4.4-10.8) Red Blood Count 3.87 10^6/uL (4.0-5.20) Hemoglobin 10.8 g/dL (12.2-16.2) Hematocrit 32.5 % (36.0-46.0) Mean Corpuscular Volume 84.0 fL (80.0-100.0) Mean Corpuscular Hemoglobin 27.9 pg (28.0-32.0) Mean Corpuscular Hemoglobin Concent 33.2 g/dL (32.0-36.0) Red Cell Distribution Width 15.1 % (11.8-14.3) Platelet Count 193 10^3/uL (140-450) Mean Platelet Volume 8.2 fL (6.9-10.8) Neutrophils (%) (Auto) 38.7 % (37.0-80.0) Lymphocytes (%) (Auto) 46.7 % (10.0-50.0) Monocytes (%) (Auto) 8.3 % (0.0-12.0) Eosinophils (%) (Auto) 5.5 % (0.0-7.0) Basophils (%) (Auto) 0.8 % (0.0-2.0) Neutrophils # (Auto) 1.7 10 ^3/uL (1.6-8.6) Lymphocytes # (Auto) 2.1 10 ^3/uL (0.4-5.4) Monocytes # (Auto) 0.4 10 ^3/uL (0-1.3) Eosinophils # (Auto) 0.2 10 ^3/uL (0-0.8) Basophils # (Auto) 0 10 ^3/uL (0-0.2) Nucleated Red Blood Cells 0.1 % Total Bilirubin 0.7 mg/dL (0.2-1.0) Aspartate Amino Transferase (AST) 14 U/L (13-40) Alanine Aminotransferase (ALT) 21 U/L (7-40) Alkaline Phosphatase 61 U/L (46-116) Total Protein 6.0 g/dL (5.7-8.2) Albumin 3.6 g/dL (3.2-4.8) Hemoglobin A1c 6.6 % A1C (<5.7) B-Type Natriuretic Peptide 334.66 pg/mL (0-100) Triglycerides Level 71 mg/dL (< 150) Cholesterol Level 102 mg/dL (< 200) LDL Cholesterol 42 mg/dL (< 100) HDL Cholesterol 46 mg/dL (40-59) Thyroid Stimulating Hormone (TSH) 2.17 uIU/mL (0.55-4.78) Test 06/21/24 12:25 06/21/24 09:30 Troponin I High Sensitivity < 3 ng/L (</=34) Urine Color Light-yellow (Yellow) Urine Clarity Clear (Clear) Urine pH 6.0 (5.0-9.0) Urine Specific [place] 1.009 (1.001-1.035) Urine Protein Trace (Negative) Urine Ketones Negative (Negative) Urine Blood Negative /uL (Negative) Urine Nitrite Negative (Negative) Urine Bilirubin Negative (Negative) Urine Urobilinogen Normal mg/dL (Negative) Urine Leukocyte Esterase Negative /uL (Negative) Urine RBC 1 /hpf (0 - 4) Urine WBC <1 /hpf (0 - 5) Urine Squamous Epithelial Cells Few /hpf (<5) Urine Bacteria None seen /hpf (None Seen) Urine Glucose Normal mg/dL (Normal) Other Laboratory Tests 06/24/24 05:57 06/23/24 05:31 Brief Hx & Hospital Course: An 79-year-old female patient; Kyrgyz-speaking; with multiple comorbidities; who presented to the emergency department with left-sided chest pain. Details as below: #Left-sided chest pain; ACS was not ruled out as the patient and her daughter refused further evaluation by Cardiology at this hospital; was on telemetry; reviewed echocardiogram; received one dose of antiplatelets medications; not on antiplatelet due to advanced age as per cardiology; on statin; reviewed the available imaging studies; sent [place] to local pharmacy and the patient received 14 tablets as per insurance; to follow up with discharge clinic on Thursday as documented below; to follow up with her oriental rug repairer upon discharge #Low back pain with left sciatica; reviewed lumbosacral spine x-ray; Doppler ultrasound of left lower extremities that showed no DVTs; pain management as above #Undetermined atrial fibrillation; on low-dose anticoagulation; not on antiarrhythmic; has a pacemaker; was on telemetry; evaluated by Cardiology; to follow up with her oriental rug repairer upon discharge #Controlled diabetes mellitus type 2 with A1c of 6.6%; to resume home medications upon discharge #Dyslipidemia; resume home statin upon discharge #Status post pacemaker; unclear for what indication but could be related to undetermined atrial fibrillation; evaluated by Cardiology during admission; was on telemetry; to follow up with her oriental rug repairer upon discharge #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; continue antihypertensive medication as indicated; continue monitoring #Acute on chronic diastolic heart failure; received IV diuresis; was on telemetry; strict input and output monitoring; to resume home medications; to follow up with her oriental rug repairer upon discharge #LAMAR; most likely vasomotor nephropathy; avoid nephrotoxic agents; resolved; to follow up with discharge clinic on Thursday as documented below then with her primary care provider #Hypokalemia due to diuresis; replaced and corrected; to follow up with discharge clinic on Thursday as documented below than with her primary care provider #Prolonged QTc; telemetry; avoid medication that could prolonged QTc; to avoid QTc prolonging medications; to follow up with her oriental rug repairer upon discharge #Normocytic anemia; most likely inflammatory; no symptoms/signs of bleeding; to follow up with her primary care provider Physical examination on the day of discharge: Assistant Professor was a female nurse General Appearance: Alert, Oriented X3, Cooperative, No acute distress HEENT: Atraumatic Lungs: Other (Scattered occasional crackles) Chest/Breasts: Other (Tender left chest wall just below the breast; pacemaker in place with no signs of infection/trauma) Cardiovascular: Other (Irregularly irregular) Abdomen: Normal bowel sounds, Soft, No tenderness Back: Midline Tenderness (Lower back) Extremities: No edema Neuro: Normal speech, Cranial nerves 3-12 NL Psych/Mental Status: Mental status NL, Mood NL Nursing staff helped with translation from [place]yr[place] This medical document was created using an electronic medical record system with computerized dictation system. Although this document has been carefully reviewed, there might still be some phonetic and typographical errors. These areas are purely typographical due to imperfections of the software programs, and do not reflect any compromise in the patient's medical care. Consults/Reason for consult Cardiology for chest pain Condition at Discharge: Stable Final Diagnosis/Problems List Chest pain; unable to rule out ACS as the patient and her daughter refused further evaluation Low back pain with left sciatica Secondary Diagnosis: As above Discharge Disposition: Home Discharge Instruct/Medications Diet: Cardiac 2g Na,low cholest Activity: No Restrictions, As Tolerated Follow Up/Referral: Follow up with discharge clinic/continue to clinic ThursdayJune 27 between 08:00 a.m. and 10:00 a.m.//follow up with the primary care provider within 1 to 2 weeks Medications: Continue home medications. Already received 14 tablets of [place] 10/325 from local pharmacy. Discharge Statement: "Patient was advised to return to the ER or call 911 if any headaches, dizziness, shortness of breath, chest pain, abdominal pain, bleeding, fevers, or worsening of medical condition. Patient was counseled about treatment plan, medications, possible side effects, patientverbalized understanding. All questions were answered to the best of my ability. This discharge took greater then 30 minutes in planning, reviewing documentation, counseling the patient, and discussing with other team members." Date of Service: Jun 25, 2024 Billing Provider: ALBA PORTER MD Common Visit Codes: 61188-IRY/OBS DISCH DAY >30min ALBA PORTER MD Jun 25, 2024 13:14
[2024-06-26] MEDS ORDERED: DIGOXIN 0.125 MG TAB PO SCH (10:00)
== END 2024-06-25 16:45 | disposition home or self-care (01) | DRG 194 ==
LOC: ER 09:10 → OVERFLOW 11:35 → CENTRAL 21:07 → TELE-CENTR 06-22 18:48
PROVIDERS: ADMIT Hospitalist; ATTEND Internal Medicine
DX: I11.0 Hypertensive heart disease with heart failure (principal); N17.0 Acute kidney failure with tubular necrosis; E11.649 Type 2 diabetes mellitus with hypoglycemia without coma; I50.33 Acute on chronic diastolic (congestive) heart failure; I34.0 Nonrheumatic mitral (valve) insufficiency; D64.9 Anemia, unspecified; E66.9 Obesity, unspecified; E78.5 Hyperlipidemia, unspecified; K92.0 Hematemesis; I48.91 Unspecified atrial fibrillation; M54.42 Lumbago with sciatica, left side; E87.6 Hypokalemia; T50.2X5A Adverse effect of carbonic-anhydrase inhibitors, benzothiadiazides and other diuretics, initial encounter; Z80.0 Family history of malignant neoplasm of digestive organs; Z82.49 Family history of ischemic heart disease and other diseases of the circulatory system; Z95.0 Presence of cardiac pacemaker; Z79.01 Long term (current) use of anticoagulants; Y92.89 Other specified places as the place of occurrence of the external cause
CPT/HCPCS: 36415; 71045; 72100; 80048; 80053; 80061; 81001; 82962; 83036; 83735; 83880; 84443; 84484; 85025; 93005; 93306; 93971; 99291; G0378; J1815

== ENCOUNTER 2024-10-07 07:16 | Inpatient (IN) | payer MEDICARE, MEDICAID ==
[~2024-10-07] VITALS: Ht 165.1 cm; Wt 60.1 kg
[2024-10-07] VITALS (21 sets, daily range): BP systolic 82–145; BP diastolic 30–71; PULSE 61–93; RESP 12–20; TEMP 97.7; O2SAT 89–100
[~2024-10-07 07:16] MED LIST: APIX2.5T PO; ATOR40TA52 PO; CETI10CA PO; ERGO1CAP23 PO; FLUO20TA42 PO; FURO20TA3 PO; HYDR-4798 PO; MEMA1CAP3 PO; METO-289 PO; POTA-36 PO
--- NOTE | 2024-10-07 07:43 | ECG ---
[facility] Test Date: 2024-10-07 Test Time: 07:28:12 Pat Name: JOSEPH WALTON Department: ER Room: 0278T Gender: F Assistant Elementary Teacher: VALENTE : 1945 Requested By: CANDI DE LOS SANTOS Order Number: [id number] Reading MD: Bry Simon Measurements Intervals [place] Rate: 84 P: 0 TX: 0 QRS: -36 QRSD: 94 T: -24 QT: 381 QTc: 451 Interpretive Statements Atrial fibrillation Paired ventricular premature complexes Left axis deviation Probable anteroseptal infarct, old Borderline repolarization abnormality Electronically Signed On 10-08-2024 19:14:52 PDT by Bry Simon Please click the below link to view image of tracing.
[2024-10-07 07:50] LABS: Basophils # (auto) 0.1 10 ^3/uL (0-0.2); Basophils % (auto) 1.7 % (0.0-2.0); Eosinophils # (auto) 0.1 10 ^3/uL (0-0.8); Eosinophils % (auto) 2.4 % (0.0-7.0); Hematocrit 34.7 % (36.0-46.0); Hemoglobin 11.2 g/dL (12.2-16.2); Lymphocytes # (auto) 1.3 10 ^3/uL (0.4-5.4); Lymphocytes % (auto) 28.6 % (10.0-50.0); Mean Corpuscular Hemoglobin 26.2 pg (28.0-32.0); Mean Corpuscular Hgb Conc. 32.2 g/dL (32.0-36.0); Mean Corpuscular Volume 81.2 fL (80.0-100.0); Monocytes # (auto) 0.3 10 ^3/uL (0-1.3); Monocytes % (auto) 6.4 % (0.0-12.0); Neutrophils # (auto) 2.9 10 ^3/uL (1.6-8.6); Neutrophils % (auto) 60.9 % (37.0-80.0); Platelet Count (auto) 221 10^3/uL (140-450); Red Blood Cells 4.28 10^6/uL (4.0-5.20); Red Cell Distribution Width 17.1 % (11.8-14.3); White Blood Cell 4.7 10^3/uL (4.4-10.8)
--- NOTE | 2024-10-07 07:50 | ED.PDOC ---
History of Present Illness HPI Comments 79F presents to the ER w/ a family member and w/ prior Hx of AFIB which may be associated to the c/c of ABD pain. Pt reports on having ABD pain, Back Pain, SOB, Cough, N/ and palpitations for the past 2 days. Denies chills, fever, /V/D, CP or no other associated symptom's, modifiers, recent injuries or sick contacts at this time. Chief Complaint: Abdominal Pain Time Seen by MD: 07:30 Reviewed Notes: Nurses Notes, Medications, Allergies Allergies: Coded Allergies: NO KNOWN ALLERGIES (Unverified , 06/21/24) Home Meds Active Scripts Hydrocodone-Acetaminophen (Hydrocodone Bitartrate/AC 10-325 mg) 1 Tab Tab, 1 TAB PO [id number] PRN for 10 Days, #20 TAB Prov:ALBA PORTER MD 06/24/24 Reported Medications Potassium Chloride (POTASSIUM CHLORIDE CR) 10 Meq Tb, 8 MEQ PO DAILY, TAB 06/21/24 Memantine HCl-Donepezil HCl (Namzaric 7-10 mg) 1 Cap Cap, 1 CAP PO DAILY for MEMORY, CAP 06/21/24 Metoprolol Succinate (Metoprolol Succinate Er) 50 Mg Tab, 1 TAB PO DAILY, #30 TAB 5 Refills 06/21/24 Atorvastatin Calcium (ATORVASTATIN CALCIUM) 40 Mg Tab, 1 TAB PO AT NIGHT, #30 TAB 5 Refills 06/21/24 Furosemide (Furosemide) 20 Mg Tab, 1 TAB PO DAILY, #90 TAB 1 Refill 06/21/24 Fluoxetine Hcl (Fluoxetine Hcl) 20 Mg Tab, 0.5 TAB PO DAILY, #90 TAB 3 Refills 06/21/24 Ergocalciferol (VITAMIN D 68994 UNIT) 50,000 [place], [address] UNIT PO ONCE AT WEEK, CAP 06/21/24 Cetirizine Hcl (Zyrtec Allergy) 10 Mg Cap, 10 MG PO DAILY, CAP 06/21/24 Apixaban Base (ELIQUIS) 2.5 Mg Tab, 2.5 MG PO BID, TAB 06/21/24 Information Source: Patient, Relative (Child) Mode of Arrival: Ambulatory Severity: Moderate Timing: Days Duration: Since onset, Days Prehospital treatment: None Past Medical History PAST MEDICAL HISTORY: AFIB Surgical History: Denies all surgeries LINKER UP History: Denies all LINKER UP Hx Family History Family History: Reviewed,noncontributory to illness, Unknown Social History Smoker: Non-Smoker Alcohol: Denies ETOH Use Drugs: Denies Drug Use Lives In: Home Constitutional: denies: chills, diaphoresis, fatigue, fever, malaise, sweats, weakness, others EENTM: denies: blurred vision, double vision, ear bleeding, ear discharge, ear drainage, ear pain, ear ringing, eye pain, eye redness, hearing loss, mouth pain, mouth swelling, nasal discharge, nose bleeding, nose congestion, nose pain, photophobia, tearing, throat pain, throat swelling, voice changes, others Respiratory: reports: cough, shortness of breath; denies: hemoptysis, orthopnea, SOB at rest, SOB with excertion, stridor, wheezing, others Cardiovascular: reports: palpitations; denies: chest pain, dizzy spells, diaphoresis, Dyspnea on exertion, edema, irregular heart beat, left arm pain, lightheadedness, PND, syncope, others Gastrointestinal: reports: abdominal pain, nausea; denies: abdomen distended, blood streaked bowels, constipated, diarrhea, dysphagia, difficulty swallowing, hematemesis, melena, poor appetite, poor fluid intake, rectal bleeding, rectal pain, vomiting, others Genitourinary: denies: abnormal vagina bleeding, burning, dyspareunia, dysuria, flank pain, frequency, hematuria, incontinence, pain, , vagina discharge, urgency, others Neurological: denies: dizziness, fainting, headache, left sided numbness, left sided weakness, numbness, paresthesia, pre-existing deficit, right sided numbness, right sided weakness, seizure, speech problems, tingling, tremors, weakness, others Musculoskeletal: reports: back pain; denies: gout, joint pain, joint swelling, muscle pain, muscle stiffness, neck pain, others Integumetry: denies: bruises, change in color, change in hair/nails, dryness, laceration, lesions, lumps, rash, wounds, others Allergic/Immunocompromised: denies: Difficulty Healing, Frequent Infections, Hives, Itching, others Hematologic/Lymphatic: denies: anemia, blood clots, easy bleeding, easy bruising, swollen glands, others Endocrine: denies: excessive hunger, excessive sweating, excessive thirst, excessive urination, flushing, intolerance to cold, intolerance to heat, unexplained weight gain, unexplained weight loss, others Psychiatric: denies: anxiety, bipolar disorder, depression, hopeless, panic disorder, schizophrenia, sleepless, suicidal, others All Other Systems: Reviewed and Negative Physical Exam General Appearance: No Apparent Distress, Normal HEENT: Normal ENT Inspection, Pharynx Normal, TMs Normal Neck: Full Range of Motion, Non-Tender, Normal, Normal Inspection Respiratory: Chest Non-Tender, Lungs Clear, No Accessory Muscle Use, No Respiratory Distress, Normal Breath Sounds Cardiovascular: No Edema, No JVD, No Murmur, No Gallop, Normal Peripheral Pulses, Regular Rate/Rhythm Breast Exam: Deferred Gastrointestinal: No Organomegaly, Non Tender, No Pulsatile Mass, Normal Bowel Sounds, Soft Genitalia: Deferred Pelvic: Deferred Rectal: Deferred Extremities: No calf tenderness, Normal capillary refill, Normal inspection, Normal range of motion, Non-tender, No pedal edema Musculoskeletal : Apperance: Normal Neurologic: Alert, olap developer II-XII 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 Was a procedure done?: No Differential Dx Considerations may include: Gastroenteritis, colitis, acute appendicitis, cholelithiasis, viral syndrome X-Ray, Labs, Meds, VS Vital Signs Date Time Temp Pulse Resp B/P (MAP) Pulse Ox O2 Delivery O2 Flow Rate FiO2 10/07/24 10:01 98 18 100/44 (62) 97 10/07/24 09:51 110 15 109/47 10/07/24 09:23 91 18 111/44 10/07/24 08:09 93 15 95 Room Air* 0 21 10/07/24 08:00 83 10/07/24 07:55 98.6 93 15 120/54 (76) 95 98.6 10/07/24 07:29 97.5 115 20 121/49 (73) 95 10/07/24 07:28 84 Lab Test 10/07/24 08:39 10/07/24 07:38 10/07/24 07:27 Range/Units Troponin I High Sensitivity 4 3 L </=34 ng/L White Blood Count 4.7 4.4-10.8 10^3/uL Red Blood Count 4.28 4.0-5.20 10^6/uL Hemoglobin 11.2 L 12.2-16.2 g/dL Hematocrit 34.7 L 36.0-46.0 % Mean Corpuscular Volume 81.2 80.0-100.0 fL Mean Corpuscular Hemoglobin 26.2 L 28.0-32.0 pg Mean Corpuscular Hemoglobin Concent 32.2 32.0-36.0 g/dL Red Cell Distribution Width 17.1 H 11.8-14.3 % Platelet Count 221 140-450 10^3/uL Mean Platelet Volume 8.4 6.9-10.8 fL Neutrophils (%) (Auto) 60.9 37.0-80.0 % Lymphocytes (%) (Auto) 28.6 10.0-50.0 % Monocytes (%) (Auto) 6.4 0.0-12.0 % Eosinophils (%) (Auto) 2.4 0.0-7.0 % Basophils (%) (Auto) 1.7 0.0-2.0 % Neutrophils # (Auto) 2.9 1.6-8.6 10 ^3/uL Lymphocytes # (Auto) 1.3 0.4-5.4 10 ^3/uL Monocytes # (Auto) 0.3 0-1.3 10 ^3/uL Eosinophils # (Auto) 0.1 0-0.8 10 ^3/uL Basophils # (Auto) 0.1 0-0.2 10 ^3/uL Nucleated Red Blood Cells 0.0 % Sodium Level 133 L 136-145 mmol/L Potassium Level 3.6 3.5-5.1 mmol/L Chloride Level 101 98-107 mmol/L Carbon Dioxide Level 23 20-31 mmol/L Anion Gap 9 5-15 Blood Urea Nitrogen 16 9-23 mg/dL Creatinine 1.08 H 0.550-1.02 mg/dL Glomerular Filtration Rate Calc 52 >90 mL/min BUN/Creatinine Ratio 14.8 10.0-20.0 Serum Glucose 198 H 74-106 mg/dL Calcium Level 9.6 8.7-10.4 mg/dL B-Type Natriuretic Peptide 530.36 0-100 pg/mL POC Glucose 216 H 70-106 mg/dl Current Medications Medications (Trade) Dose Ordered Sig/Becca Route Start Time Stop Time Status Last Admin Ondansetron HCl (Zofran) 4 mg ONCE ONCE IV 10/07/24 07:45 10/07/24 07:46 DC 10/07/24 08:00 Famotidine (Pepcid Injection) 20 mg ONCE ONCE IV 10/07/24 07:45 10/07/24 07:46 DC 10/07/24 08:00 Morphine Sulfate 4 mg ONCE ONCE IV 10/07/24 09:15 10/07/24 09:16 DC 10/07/24 09:23 Time of 1ST Reevaluation: 08:00 Reevaluation 1ST: Unchanged Patient Education/Counseling: Diagnosis, Treatment, Prognosis Family Education/Counseling: Diagnosis, Treatment, Prognosis Departure 1 Departure Time of Disposition: 12:22 (Patient presented with abdominal pain that was concerning for possible appendicits, gastritis, cholecystitis, colitis, karen roenteritis, sbo, or orther possible surgical emergency. Data: 1. I ordered and reviewed the result of at least 3 labs including a CBC, BMP, and Urinalysis. 2. I independently interpreted the following tests: CT Abdoment and Pelvis is concerning for colitis .Risk:This patient has a high risk of morbidity due to further diagnostic testing or treatment and may suffer from an acute abdominal process disorder. Workup reveals colitis intractable abdominal pain and patient should be admitted for further workup. and possible expert consultation. ) Impression: Primary Impression: Non-specific colitis Additional Impression: Intractable abdominal pain Disposition: ADMITTED INPATIENT Admit to: Med Surg Condition: Serious Critical Care Note Critical Care Time?: Yes Critical care comment: Intractable abdominal pain Authorized and Performed by: Candi Adames MD Total critical care time: Approximately 42 minutes Due to a high probability of clinically significant, life threatening deterioration, the patient required my highest level of preparedness to intervene emergently and I personally spent this critical care time directly and personally managing the patient. This critical care time included obtaining a history; examining the patient; pulse oximetry; ordering and review of studies; arranging urgent treatment with development of a management plan; evaluation of patient's response to treatment; frequent reassessment; and, discussions with other providers. This critical care time was performed to assess and manage the high probability of imminent, life-threatening deterioration that could result in multi-organ failure. It was exclusive of separately billable procedures and treating other patients and teaching time. Please see my other sections and the rest of the note for further information on patient assessment and treatment. Stability Stability form required: No I personally scribed for CANDI ADAMES MD ([email or web address]) on 10/07/24 at 07:50. Electronically submitted by Luis March ([email or web address]). CANDI ADAMES MD Oct 07, 2024 07:50
[2024-10-07 07:59] LABS: Chloride 101 mmol/L (98-107); Potassium 3.6 mmol/L (3.5-5.1)
[2024-10-07 08:00] LABS: Anion Gap 9 (5-15); Calcium 9.6 mg/dL (8.7-10.4); Carbon Dioxide 23 mmol/L (20-31); Sodium 133 mmol/L (136-145)
[2024-10-07] MEDS: ONDANSETRON HCL 4 MG/2 ML VIAL IV ONE (08:00)
[2024-10-07] MEDS: FAMOTIDINE (10MG/ML) 2ML VL IV ONE (08:00)
[2024-10-07 08:05] LABS: Glucose 198 mg/dL (74-106)
[2024-10-07 08:23] LABS: BUN/Creatinine Ratio 14.8 (10.0-20.0); Blood Urea Nitrogen 16 mg/dL (9-23)
--- NOTE | 2024-10-07 08:38 | DVH ---
INDICATION: sob TECHNIQUE: Frontal view of the chest. COMPARISON: XY CHEST PORTABLE on DOS: 06/21/24 FINDINGS: Left sided pacemaker . The heart and mediastinal contours are grossly unremarkable. There is no evid ence of pleural disease. The lungs are clear. The bony structures of the chest are intact without fracture. IMPRESSION: 1. No evidence of acute disease.
[2024-10-07] MEDS: IOHEXOL 300 MG/ML 100ML BOTTLE IJ ONE ×2 (09:00→09:07)
[2024-10-07] MEDS: MORPHINE SULFATE 4 MG/ML SYR/VIAL IV ONE (09:23)
--- NOTE | 2024-10-07 10:40 | DVH ---
Exam: CT CT AB PEL WITH IV CON ONLY History: abdominal pain COMPARISON: None Technique: Multidetector spiral CT of the abdomen and pelvis was performed from lung bases to pubic s ymphysis. Intravenous contrast was administered during this examination. Portal venous imaging was o btained. Axial, coronal and sagittal multiplanar reformats were performed by the technologist on a [employer] workstation. Radiation Dose : 1. Abdomen/Pelvis: CTDIvol 5.65mGy, DLP 271.73 mGy*cm. Findings: Lung Bases: Cardiomegaly. Dependent atelectasis. Liver: The liver is normal in size. No focal lesions. Normal hepatic vascular enhancement. Gallbladder and Biliary Tree: Unremarkable Spleen: Spleen is present in the right side of the abdomen. Pancreas: The pancreas is normal in appearance without focal lesions or abnormal enhancement. Adrenal Glands: Unremarkable Kidneys: No hydronephrosis. Bladder: Unremarkable Bowel: Stomach is on the right side of the abdomen. Diverticulosis. Mild bowel wall thickening of the colon. Normal appendix is visualized in the right lower quadrant without findings of appendicitis. Ascites: Absent Lymphadenopathy: No mesenteric, retroperitoneal or periportal lymphadenopathy. Abdominal Wall and Mesentery: Unremarkable. Vasculature: The visualized abdominal aorta is normal in size and caliber. There is calcified atheros clerotic plaque involving the aorta and its branches. Abdominal and pelvic vessels demonstrate normal enhancement. Pelvic Organs: Unremarkable Musculoskeletal: No aggressive focal bony lesions, acute fractures or dislocation. Degenerative maher es of the spine. IMPRESSION: Possible mild colitis. 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 Radiation optimization: All CT scans at this facility use at least one of these dose optimization eugenia hniques: automated exposure control mA and/or kV adjustment per patient size (includes targeted exam s where dose is matched to clinical indication) or iterative reconstruction.
[2024-10-07] MEDS: SODIUM CHLORIDE 0.9% 2,000 ML IV ONE (12:00)
[2024-10-07] MEDS ORDERED: DEXTROSE (50%) 50ML SYRG IV PRN (12:30)
[2024-10-07] MEDS: metroNIDAZOLE 500MG/100ML 100 ML IV ONE (12:44)
[2024-10-07] MEDS ORDERED: NITROGLYCERIN 0.4 MG SL TAB SL PRN (13:00)
[2024-10-07] MEDS: NOREPINEPHRINE 8 MG/250ML KIT 250 ML IV ONE (13:10)
[2024-10-07 13:22] LABS: Triglycerides 81 mg/dL (< 150)
[2024-10-07 13:23] LABS: LDL Cholesterol 49 mg/dL (< 100)
[2024-10-07 13:24] LABS: Cholesterol 117 mg/dL (< 200); HDL Cholesterol 54 mg/dL (40-59)
--- NOTE | 2024-10-07 13:24 | DVHHP2 ---
History of Present Illness Reason for Visit: Abdominal pain History of Present Illness Ro Medina is an 79-year-old female with past medical history of hypertension, diabetes, AFib, and pacemaker placement who presents to the ED with abdominal pain, shortness of breath, nausea, vomiting, productive cough with white phlegm, and palpitations x2 days. Patient reports that she had the pacemaker placed in 2016 but forgot which hospital. Patient's daughter Louisa at the bedside and reports that her mom sees a GI doctor for her pancreas in [place]. When asked about her spleen patient and daughter reports that she sees a GI specialist. Patient's daughter also reports that she takes apixaban for h er pacemaker that was placed in 2015. She reports that her mom currently stays with her. Patient reports that the pain was 10/10 pressure-like and constant upon examination she states that she has no pain currently. She also reported that she was having palpitations and shortness of breath earlier. Patient's daughter also reports that she has been having productive phlegm for the last couple of days. Patient and daughter denies hemoptysis, hematemesis, any recent sick contacts, recent trauma or injury, fever, chills, lightheadedness, weakness, dizziness, and diarrhea. Cardiovascular: AFIB, HTN Endocrine: Diabetes Past Surgical History: Other (Pacemaker placed in 2015) Family History: DM, Other (Mom with heart disease and diabetes) Smoke: No ALCOHOL: none Drugs: None Lives: with Family Domestic Violence: Neg Review of Systems Respiratory: Cough, Shortness of breath, Sputum Cardiovascular: Palpitations Gastrointestinal: Nausea, Vomiting, Abdominal Pain Allergies: Coded Allergies: NO KNOWN ALLERGIES (Unverified , 06/21/24) Exam Vital Signs Vital Signs Date Time Temp Pulse Resp B/P (MAP) Pulse Ox O2 Delivery O2 Flow Rate FiO2 10/07/24 12:00 90 10/07/24 10:01 18 100/44 (62) 97 10/07/24 08:09 Room Air* 0 21 10/07/24 07:55 98.6 98.6 General Appearance: Alert, Oriented X3, Cooperative, No acute distress HEENT: Atraumatic, PERRLA, EOMI, Mucous membr. moist/pink Respiratory: Normal air movement Cardiovascular: Normal S1, Normal S2, No murmurs Abdominal: Normal bowel sounds, Soft, No tenderness, No hepatospenomegaly, No masses Extremities: No clubbing, No cyanosis, No edema, Normal pulses, No tenderness/swelling Skin: No significant lesion Neuro: Normal speech, Normal tone, Sensation intact Psych/Mental Status: Mental status NL, Mood NL Labs/Xrays Labs Test 10/07/24 12:20 10/07/24 08:39 10/07/24 07:38 10/07/24 07:27 Range/Units Troponin I High Sensitivity 4 </=34 ng/L White Blood Count 4.7 4.4-10.8 10^3/uL Red Blood Count 4.28 4.0-5.20 10^6/uL Hemoglobin 11.2 L 12.2-16.2 g/dL Hematocrit 34.7 L 36.0-46.0 % Mean Corpuscular Volume 81.2 80.0-100.0 fL Mean Corpuscular Hemoglobin 26.2 L 28.0-32.0 pg Mean Corpuscular Hemoglobin Concent 32.2 32.0-36.0 g/dL Red Cell Distribution Width 17.1 H 11.8-14.3 % Platelet Count 221 140-450 10^3/uL Mean Platelet Volume 8.4 6.9-10.8 fL Neutrophils (%) (Auto) 60.9 37.0-80.0 % Lymphocytes (%) (Auto) 28.6 10.0-50.0 % Monocytes (%) (Auto) 6.4 0.0-12.0 % Eosinophils (%) (Auto) 2.4 0.0-7.0 % Basophils (%) (Auto) 1.7 0.0-2.0 % Neutrophils # (Auto) 2.9 1.6-8.6 10 ^3/uL Lymphocytes # (Auto) 1.3 0.4-5.4 10 ^3/uL Monocytes # (Auto) 0.3 0-1.3 10 ^3/uL Eosinophils # (Auto) 0.1 0-0.8 10 ^3/uL Basophils # (Auto) 0.1 0-0.2 10 ^3/uL Nucleated Red Blood Cells 0.0 % Sodium Level 133 L 136-145 mmol/L Potassium Level 3.6 3.5-5.1 mmol/L Chloride Level 101 98-107 mmol/L Carbon Dioxide Level 23 20-31 mmol/L Anion Gap 9 5-15 Blood Urea Nitrogen 16 9-23 mg/dL Creatinine 1.08 H 0.550-1.02 mg/dL Glomerular Filtration Rate Calc 52 >90 mL/min BUN/Creatinine Ratio 14.8 10.0-20.0 Serum Glucose 198 H 74-106 mg/dL Calcium Level 9.6 8.7-10.4 mg/dL B-Type Natriuretic Peptide 530.36 0-100 pg/mL POC Glucose 216 H 70-106 mg/dl Exam: CT CT AB PEL WITH IV CON ONLY History: abdominal pain COMPARISON: None Technique: Multidetector spiral CT of the abdomen and pelvis was performed from lung bases to pubic symphysis. Intravenous contrast was administered during this examination. Portal venous imaging was obtained. Axial, coronal and sagittal multiplanar reformats were performed by the technologist on a separate workstation. Radiation Dose : 1. Abdomen/Pelvis: CTDIvol 5.65mGy, DLP 271.73 mGy*cm. Findings: Lung Bases: Cardiomegaly. Dependent atelectasis. Liver: The liver is normal in size. No focal lesions. Normal hepatic vascular enhancement. Gallbladder and Biliary Tree: Unremarkable Spleen: Spleen is present in the right side of the abdomen. Pancreas: The pancreas is normal in appearance without focal lesions or abnormal enhancement. Adrenal Glands: Unremarkable Kidneys: No hydronephrosis. Bladder: Unremarkable Bowel: Stomach is on the right side of the abdomen. Diverticulosis. Mild bowel wall thickening of the colon. Normal appendix is visualized in the right lower quadrant without findings of appendicitis. Ascites: Absent Lymphadenopathy: No mesenteric, retroperitoneal or periportal lymphadenopathy. Abdominal Wall and Mesentery: Unremarkable. Vasculature: The visualized abdominal aorta is normal in size and caliber. There is calcified atherosclerotic plaque involving the aorta and its branches. Abdominal and pelvic vessels demonstrate normal enhancement. Pelvic Organs: Unremarkable Musculoskeletal: No aggressive focal bony lesions, acute fractures or dislocation. Degenerative changes of the spine. IMPRESSION: Possible mild colitis. 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 INDICATION: sob TECHNIQUE: Frontal view of the chest. COMPARISON: XY CHEST PORTABLE on DOS: 06/21/24 FINDINGS: Left sided pacemaker . The heart and mediastinal contours are grossly unremarkable. There is no evidence of pleural disease. The lungs are clear. The bony structures of the chest are intact without fracture. IMPRESSION: 1. No evidence of acute disease. Assessment/Plan Assessment/Plan Assessment Intractable abdominal pain likely due to colitis Hyponatremia LAMAR Diabetes Type 2 uncontrolled Volume overload History of hypertension History of AFib History of pacemaker placed in 2016 Plan Admit to tele UA NS [address] abdomen and pelvis IV antibiotics-Flagyl +cefazolin Antiemetics Pain management PPIs Blood culture Lactic EKG Troponin negative x2 BNP Chest x-ray noted Hemoglobin A1c ISS and Accu-Cheks Diuretics Last echo done on 06/19/24 EF 55% Echo TSH Lipid UDS Diet DVT prophylaxis - patient on Eliquis Discussed plan of care with patient, patient's daughter, and nurse Home medications reconciled Plan discussed with: Patient, Daughter My Orders Orders - HELENE DYER Procedure Category Date Status Time Metronidazole Ivpb PHA 10/07/24 Transmitted Flagyl 14:00 Cefazolin Ancef PHA 10/07/24 Transmitted 14:00 Furosemide Injection PHA 10/08/24 Transmitted (Lasix Injection) 10:00 Glucose Blood PHA 10/07/24 Transmitted (Accu-Chek Comfort 17:00 Mild Sliding Scale PHA 10/07/24 Transmitted 17:00 Dextrose 50% Syringe PHA 10/07/24 Transmitted 12:30 Hemoglobin A1c LAB 10/07/24 Logged 12:28 Apixaban (Eliquis) PHA 10/07/24 Transmitted 22:00 Ergocalciferol PHA 10/07/24 Transmitted (Vitamin D 50,000 12:30 Metoprolol Xl PHA 10/08/24 Transmitted Succinate (Toprol Xl) 10:00 (Nf) Atorvastatin PHA 10/07/24 Transmitted Calcium 12:30 (Nf) Cetirizine Hcl PHA 10/08/24 Transmitted (Zyrtec Allergy) 10:00 (Nf) Fluoxetine Hcl PHA 10/08/24 Transmitted 10:00 (Nf) Memantine PHA 10/08/24 Transmitted Hcl-Donepezil Hcl 10:00 (Nf) Potassium PHA 10/08/24 Transmitted Chloride (Potassium 10:00 Date of Service: Oct 07, 2024 Billing Provider: HELENE DYER Common Visit Codes: [id number] INP/OBS CARE (HIGH) HELENE DYER Oct 07, 2024 13:24
[2024-10-07 13:27] LABS: Urine Bacteria None Seen /hpf (None Seen)
[2024-10-07 13:41] LABS: Urine Blood Negative /uL (Negative); Urine Clarity Clear (Clear); Urine Color Yellow (Yellow); Urine Protein, UAD Negative (Negative); Urine Specific Gravity 1.035 (1.001-1.035); Urine Squamous Epithelial Cell FEW /hpf (<5); Urine Urobilinogen Normal (Negative); Urine WBC < 1 /HPF (0-5)
[2024-10-07 13:54] LABS: Opiate Scree,Urine Neg (NEGATIVE)
[2024-10-07 13:55] LABS: Amphetamine Screen, Urine Neg (NEGATIVE); Barbiturate Scree,Urine Neg (NEGATIVE); Benzodiazephine Screen, Urine Neg (NEGATIVE); Cannabinoid Screen, Urine Neg (NEGATIVE); Cocaine Screen, Urine Neg (NEGATIVE); Phencyclidine Screen, Urine Neg (NEGATIVE)
[2024-10-07] MEDS: POTASSIUM CHLORIDE 8 MEQ TAB PO ONE (14:00)
[2024-10-07] MEDS: metroNIDAZOLE 500MG/100ML 100 ML IV SCH (14:00)
[2024-10-07] MEDS: SODIUM CHLORIDE 0.9% 1,000 ML IV ONE (14:10)
[2024-10-07] MEDS: NOREPINEPHRINE 8 MG/250ML KIT 250 ML IV SCH (14:10)
[2024-10-07] MEDS: ceFAZolin 2 GM/D5W50ml 50 ML IV ONE (14:25)
[2024-10-07] MEDS ORDERED: ERGOCALCIFEROL 50,000 UNIT(1.25MG) CAP PO SCH (15:00)
[2024-10-07] MEDS: ACCU-CHEK COMFORT CURVE STRIP VI SCH (17:16)
[2024-10-07] MEDS: InsuLIN REG 1unit/0.01ml Soln (100units/ml) SC SCH (17:25)
[2024-10-07] MEDS: ATORVASTATIN 20 MG TAB PO SCH (20:36)
[2024-10-07] MEDS: APIXABAN 2.5 MG TAB PO SCH (20:36)
[2024-10-07] MEDS: ceFAZolin 1GM/50ML 50 ML IV SCH (20:37)
[2024-10-07] MEDS: ACETAMINOPHEN 325 MG TAB PO PRN (21:41)
[2024-10-08] VITALS (52 sets, daily range): BP systolic 96–152; BP diastolic 41–121; PULSE 65–114; RESP 10–24; TEMP 97.8–98.6; O2SAT 87–100
[2024-10-08] MEDS: HYDROcodone-ACET 5/325MG TAB PO PRN (00:41)
[2024-10-08 04:48] LABS: Basophils # (auto) 0.1 10 ^3/uL (0-0.2); Eosinophils # (auto) 0.3 10 ^3/uL (0-0.8); Hemoglobin 9.7 g/dL (12.2-16.2); Lymphocytes # (auto) 1.8 10 ^3/uL (0.4-5.4); Lymphocytes % (auto) 37.6 % (10.0-50.0); White Blood Cell 4.7 10^3/uL (4.4-10.8)
[2024-10-08 04:51] LABS: Basophils % (auto) 1.1 % (0.0-2.0); Eosinophils % (auto) 6.7 % (0.0-7.0); Hematocrit 29.9 % (36.0-46.0); Mean Corpuscular Hemoglobin 26.3 pg (28.0-32.0); Mean Corpuscular Hgb Conc. 32.4 g/dL (32.0-36.0); Mean Corpuscular Volume 81.1 fL (80.0-100.0); Monocytes # (auto) 0.5 10 ^3/uL (0-1.3); Neutrophils # (auto) 2.1 10 ^3/uL (1.6-8.6); Neutrophils % (auto) 43.6 % (37.0-80.0); Platelet Count (auto) 184 10^3/uL (140-450); Red Blood Cells 3.68 10^6/uL (4.0-5.20); Red Cell Distribution Width 17.8 % (11.8-14.3)
[2024-10-08 05:10] LABS: Alanine Aminotransferase 19 U/L (7-40); Albumin 3.8 g/dL (3.2-4.8); Alkaline Phosphatase 57 U/L (46-116); Anion Gap 8 (5-15); Aspartate Aminotransferase 17 U/L (13-40); BUN/Creatinine Ratio 12.7 (10.0-20.0); Blood Urea Nitrogen 13 mg/dL (9-23); Calcium 9.1 mg/dL (8.7-10.4); Carbon Dioxide 22 mmol/L (20-31); Potassium 3.8 mmol/L (3.5-5.1); Sodium 139 mmol/L (136-145); Total Protein 6.2 g/dL (5.7-8.2)
[2024-10-08 05:11] LABS: Bilirubin, Total 0.5 mg/dL (0.2-1.0)
[2024-10-08 05:13] LABS: Chloride 109 mmol/L (98-107); Glucose 126 mg/dL (74-106)
[2024-10-08] MEDS: ONDANSETRON HCL 4 MG/2 ML VIAL IV PRN (06:25)
[2024-10-08] MEDS: MORPHINE SULFATE INJ 2 MG/ml SYRG IV PRN (07:15)
[2024-10-08] MEDS: FLUoxetine HCL 10 MG CAP PO SCH (08:01)
[2024-10-08] MEDS: LORATADINE 10 MG TAB PO SCH (08:02)
[2024-10-08] MEDS: POTASSIUM CHLORIDE 8 MEQ TAB PO SCH (08:02)
[2024-10-08] MEDS ORDERED: FLUOXETINE HCL PO SCH (10:00)
[2024-10-08] MEDS ORDERED: MEMANTINE HCL DONEPEZIL HCL PO SCH (10:00)
[2024-10-08] MEDS ORDERED: FUROSEMIDE 40 MG/4 ML VIAL IV SCH (10:00)
[2024-10-08] MEDS ORDERED: METOPROLOL SUCCINATE XL 50 MG TAB PO SCH (10:00)
[2024-10-08] MEDS: MORPHINE SULFATE INJ 2 MG/ml SYRG IV ONE (14:37)
--- NOTE | 2024-10-08 16:32 | DVHPN2 ---
Subjective Seen and examined at bedside in the ED. Patient was on Vasopressors. Cont Abx. Clear liquids for now Changes from previous H/P or p: No Changes Cardiovascular: No Chest Pain, No Palpitations, No Orthopnea, No Paroxysmal Noc. Dyspnea, No Edema, No Lt Headedness, No Other Respiratory: No Cough, No Dry, No Shortness of breath, No SOB with excertion, No Wheezing, No Hemoptysis, No Pleuritic Pain, No Sputum, No Other Gastrointestinal: Nausea, Abdominal Pain Objective Vitals Vital Signs Date Time Temp Pulse Resp B/P (MAP) Pulse Ox O2 Delivery O2 Flow Rate FiO2 10/08/24 15:22 16 100 Nasal Cannula* 2 28 10/08/24 15:00 92 135/54 (81) 10/08/24 14:15 98.3 98.3 Intake/Output Intake and Output 10/08/24 07:00 Intake Total 2813.75 ml Output Total 550 ml Balance 2263.75 ml Intake Oral 300 ml IV Total 2513.75 ml Output Urine Total 550 ml General Appearance: Alert, Oriented X3, Cooperative, No acute distress HEENT: Atraumatic Neck: Carotid Bruits [place] Lungs: Clear to auscultation Cardiovascular: Regular rate, Normal S1, Normal S2 Abdomen: Soft Psych/Mental Status: Mental status NL Medications Current Medications Medications Dose Ordered Sig/Becca Route Start Time Stop Time Status Last Admin Dose Admin Metronidazole 100 ml @ 100 mls/hr Q8HR IV 10/07/24 14:00 10/08/24 12:42 100 MLS/HR Diagnostic Test (Pha) 1 strip ACHS 10/07/24 17:00 10/08/24 10:31 1 STRIP Insulin Human Regular ACHS SC 10/07/24 17:00 10/08/24 10:31 2 UNITS Dextrose 50 ml UD PRN IV 10/07/24 12:30 Apixaban 2.5 mg BID PO 10/07/24 22:00 10/08/24 08:01 2.5 MG Ergocalciferol 50,000 unit QWEEKLY PO 10/07/24 15:00 Metoprolol Succinate 50 mg DAILY PO 10/08/24 10:00 Hold Atorvastatin Calcium 40 mg HS PO 10/07/24 22:00 10/07/24 20:36 40 MG Loratadine 10 mg DAILY PO 10/08/24 10:00 10/08/24 08:02 10 MG Patient Own Medication 0.5 tab DAILY PO 10/08/24 10:00 UNV Patient Own Medication 1 cap DAILY PO 10/08/24 10:00 Hold Potassium Chloride 8 meq DAILY PO 10/08/24 10:00 10/08/24 08:02 8 MEQ Acetaminophen/ Hydrocodone Bitart 1 tab Q4HP PRN PO 10/07/24 13:00 10/08/24 13:13 1 TAB Ondansetron HCl 4 mg Q4HP PRN IV 10/07/24 13:00 10/08/24 13:32 4 MG Acetaminophen 650 mg Q6HP PRN PO 10/07/24 13:00 10/07/24 21:41 650 MG Nitroglycerin 0.4 mg Q5MINP PRN SL 10/07/24 13:00 Morphine Sulfate 2 mg Q30M PRN IV 10/07/24 13:00 10/08/24 07:15 2 MG Norepinephrine Bitartrate 250 ml @ 3.75 mls/hr Q24H IV 10/07/24 14:30 10/07/24 14:10 3.75 MLS/HR Fluoxetine HCl 10 mg DAILY PO 10/08/24 10:00 10/08/24 08:01 10 MG Levofloxacin/ Dextrose 100 ml @ 100 mls/hr DAILY IV 10/09/24 10:00 UNV Laboratory Results Laboratory Tests 10/08/24 04:17 Chemistry Test 10/08/24 04:17 Albumin 3.8 g/dL (3.2-4.8) Calcium Level 9.1 mg/dL (8.7-10.4) Total Protein 6.2 g/dL (5.7-8.2) LFT Test 10/08/24 04:17 Alanine Aminotransferase (ALT) 19 U/L (7-40) Alkaline Phosphatase 57 U/L (46-116) Aspartate Amino Transferase (AST) 17 U/L (13-40) Total Bilirubin 0.5 mg/dL (0.2-1.0) Urinalysis Test 10/07/24 07:45 Urine Color Yellow (Yellow) Urine Clarity Clear (Clear) Urine pH 7.0 (5.0-9.0) Urine Specific [place] 1.035 (1.001-1.035) Urine Protein Negative (Negative) Urine Ketones Negative (Negative) Urine Blood Negative /uL (Negative) Urine Nitrite Negative (Negative) Urine Bilirubin Negative (Negative) Urine Urobilinogen Normal mg/dL (Negative) Urine Leukocyte Esterase Negative /uL (Negative) Urine RBC <1 /hpf (0 - 4) Urine Microscopic WBC < 1 /HPF (0-5) Urine Squamous Epithelial Cells Few /hpf (<5) Urine Bacteria None seen /hpf (None Seen) Urine Glucose Normal mg/dL (Normal) Microbiology Microbiology Date/Time Source Procedure Growth Status 10/08/24 04:00 Nose MRSA Screen - Final Complete 10/07/24 12:20 Blood Blood Culture - Preliminary NO GROWTH AFTER 24 HOURS OF INCUBATION. Resulted Assessment/Plan Assessment/Plan # Acute Colitis - Abx - Clears # Septic Shock requiring Vasopressors - Levophed # A-Fibb Critical care time 45 mins Plan discussed with: Patient, Daughter My Orders Orders - JOE MAIER MD Procedure Category Date Status Time Transfer Orders XFER 10/08/24 Transmitted 14:51 Npo (Nothing By DIET 10/08/24 Transmitted Mouth) Diet Dinner Levofloxacin 500mg PHA 10/09/24 Logged (Levaquin 500mg/ 100m 10:00 Levofloxacin 500mg PHA 10/08/24 Logged (Levaquin 500mg/ 100m 16:15 Basic Metabolic Panel LAB 10/09/24 Verified 04:00 Complete Blood Count LAB 10/09/24 Verified 04:00 Magnesium LAB 10/09/24 Verified 04:00 Date of Service: Oct 08, 2024 Billing Provider: JOE MAIER MD Common Visit Codes: [id number] CARE 30-74 MIN JOE MAIER MD Oct 08, 2024 16:32
[2024-10-08] MEDS: levoFLOXacin 500MG 100 ML IV ONE (18:24)
[2024-10-08] MEDS: PANTOPRAZOLE 40 MG/10 ML VIAL INJ IV SCH (22:02)
[2024-10-09] VITALS (8 sets, daily range): BP systolic 106–136; BP diastolic 50–83; PULSE 60–128; RESP 16–20; TEMP 97.9–98.4; O2SAT 95–100
[2024-10-09] MEDS: MORPHINE SULFATE INJ 2 MG/ml SYRG IV PRN (00:48)
[2024-10-09] MEDS: dilTIAZem 25 MG/5 ML VIAL IV ONE (02:38)
[2024-10-09 07:12] LABS: Basophils # (auto) 0 10 ^3/uL (0-0.2); Basophils % (auto) 0.9 % (0.0-2.0); Eosinophils # (auto) 0.1 10 ^3/uL (0-0.8); Eosinophils % (auto) 3.5 % (0.0-7.0); Hematocrit 28.3 % (36.0-46.0); Hemoglobin 9.6 g/dL (12.2-16.2); Lymphocytes # (auto) 1.5 10 ^3/uL (0.4-5.4); Lymphocytes % (auto) 36.6 % (10.0-50.0); Mean Corpuscular Hemoglobin 27.2 pg (28.0-32.0); Mean Corpuscular Hgb Conc. 33.8 g/dL (32.0-36.0); Mean Corpuscular Volume 80.6 fL (80.0-100.0); Monocytes # (auto) 0.5 10 ^3/uL (0-1.3); Monocytes % (auto) 12.1 % (0.0-12.0); Neutrophils % (auto) 46.9 % (37.0-80.0); Nucleated Red Blood Cells % 0.1 %; Platelet Count (auto) 171 10^3/uL (140-450); Red Blood Cells 3.51 10^6/uL (4.0-5.20); Red Cell Distribution Width 17.2 % (11.8-14.3); White Blood Cell 4.2 10^3/uL (4.4-10.8)
[2024-10-09 07:13] LABS: Anion Gap 7 (5-15); Carbon Dioxide 26 mmol/L (20-31); Chloride 106 mmol/L (98-107); Potassium 3.7 mmol/L (3.5-5.1); Sodium 139 mmol/L (136-145)
[2024-10-09 07:14] LABS: Calcium 9.3 mg/dL (8.7-10.4)
[2024-10-09 07:19] LABS: BUN/Creatinine Ratio 9.6 (10.0-20.0); Blood Urea Nitrogen 8 mg/dL (9-23); Glucose 105 mg/dL (74-106)
[2024-10-09 07:20] LABS: Magnesium 1.9 mg/dL (1.6-2.6)
[2024-10-09] MEDS: levoFLOXacin 250MG 50 ML IV SCH (10:00)
[2024-10-09] MEDS: POLYETHYLENE GLYCOL 17 GM PWDR PO ONE (13:28)
[2024-10-09] MEDS: LACTULOSE 20Gm/30ML SOLN PO ONE (13:28)
--- NOTE | 2024-10-09 15:44 | DVHPN2 ---
Subjective Seen and examined at bedside, abdominal pain improved. Patient in A-Fibb, will repeat EKG. Changes from previous H/P or p: No Changes Cardiovascular: No Chest Pain, No Palpitations, No Orthopnea, No Paroxysmal Noc. Dyspnea, No Edema, No Lt Headedness, No Other Respiratory: No Cough, No Dry, No Shortness of breath, No SOB with excertion, No Wheezing, No Hemoptysis, No Pleuritic Pain, No Sputum, No Other Gastrointestinal: No Nausea, No Vomiting, No Abdominal Pain, No Diarrhea, No Constipation, No Melena, No Hematochezia, No Other Objective Vitals Vital Signs Date Time Temp Pulse Resp B/P (MAP) Pulse Ox O2 Delivery O2 Flow Rate FiO2 10/09/24 13:00 98.3 115 18 126/79 (95) 96 98.3 10/09/24 08:00 Nasal Cannula* 2 28 Intake/Output Intake and Output 10/09/24 07:00 Intake Total 500 ml Balance 500 ml Intake Oral 500 ml # Voids 3 General Appearance: Alert, Oriented X3, Cooperative, No acute distress HEENT: Atraumatic Neck: Carotid Bruits [place] Lungs: Clear to auscultation Cardiovascular: Normal S1, Normal S2, Other (Irregular) Abdomen: Soft Psych/Mental Status: Mental status NL Medications Current Medications Medications Dose Ordered Sig/Becca Route Start Time Stop Time Status Last Admin Dose Admin Metronidazole 100 ml @ 100 mls/hr Q8HR IV 10/07/24 14:00 10/09/24 13:28 100 MLS/HR Diagnostic Test (Pha) 1 strip ACHS 10/07/24 17:00 10/09/24 11:30 1 STRIP Insulin Human Regular ACHS SC 10/07/24 17:00 10/09/24 11:30 3 UNITS Dextrose 50 ml UD PRN IV 10/07/24 12:30 Apixaban 2.5 mg BID PO 10/07/24 22:00 10/09/24 10:53 2.5 MG Ergocalciferol 50,000 unit QWEEKLY PO 10/07/24 15:00 Metoprolol Succinate 50 mg DAILY PO 10/08/24 10:00 Hold Atorvastatin Calcium 40 mg HS PO 10/07/24 22:00 10/07/24 20:36 40 MG Loratadine 10 mg DAILY PO 10/08/24 10:00 10/09/24 10:45 10 MG Patient Own Medication 0.5 tab DAILY PO 10/08/24 10:00 UNV Patient Own Medication 1 cap DAILY PO 10/08/24 10:00 Hold Potassium Chloride 8 meq DAILY PO 10/08/24 10:00 10/09/24 10:00 8 MEQ Acetaminophen/ Hydrocodone Bitart 1 tab Q4HP PRN PO 10/07/24 13:00 10/09/24 10:46 1 TAB Ondansetron HCl 4 mg Q4HP PRN IV 10/07/24 13:00 10/09/24 10:53 4 MG Acetaminophen 650 mg Q6HP PRN PO 10/07/24 13:00 10/07/24 21:41 650 MG Nitroglycerin 0.4 mg Q5MINP PRN SL 10/07/24 13:00 Morphine Sulfate 2 mg Q30M PRN IV 10/07/24 13:00 10/08/24 07:15 2 MG Norepinephrine Bitartrate 250 ml @ 3.75 mls/hr Q24H IV 10/07/24 14:30 10/07/24 14:10 3.75 MLS/HR Fluoxetine HCl 10 mg DAILY PO 10/08/24 10:00 10/09/24 10:45 10 MG Levofloxacin 50 ml @ 50 mls/hr DAILY IV 10/09/24 10:00 Pantoprazole Sodium 40 mg BID IV 10/08/24 22:00 10/09/24 12:31 40 MG Morphine Sulfate 2 mg Q4HPRN PRN IV 10/09/24 00:20 10/09/24 00:48 2 MG Laboratory Results Laboratory Tests 10/09/24 06:06 Chemistry Test 10/09/24 06:06 Calcium Level 9.3 mg/dL (8.7-10.4) Magnesium Level 1.9 mg/dL (1.6-2.6) Urinalysis Test 10/07/24 07:45 Urine Color Yellow (Yellow) Urine Clarity Clear (Clear) Urine pH 7.0 (5.0-9.0) Urine Specific [place] 1.035 (1.001-1.035) Urine Protein Negative (Negative) Urine Ketones Negative (Negative) Urine Blood Negative /uL (Negative) Urine Nitrite Negative (Negative) Urine Bilirubin Negative (Negative) Urine Urobilinogen Normal mg/dL (Negative) Urine Leukocyte Esterase Negative /uL (Negative) Urine RBC <1 /hpf (0 - 4) Urine Microscopic WBC < 1 /HPF (0-5) Urine Squamous Epithelial Cells Few /hpf (<5) Urine Bacteria None seen /hpf (None Seen) Urine Glucose Normal mg/dL (Normal) Microbiology Microbiology Date/Time Source Procedure Growth Status 10/08/24 04:00 Nose MRSA Screen - Final Complete 10/07/24 12:20 Blood Blood Culture - Preliminary NO GROWTH AFTER 48 HOURS OF INCUBATION. Resulted Assessment/Plan Assessment/Plan # Acute Colitis - Abx - Advance to full liquids # Septic Shock requiring Vasopressors - Levophed # A-Fibb - Rate control Plan discussed with: Patient My Orders Orders - JOE MAIER MD Procedure Category Date Status Time Levofloxacin 250mg PHA 10/09/24 In Process (Levaquin 250mg) 10:00 Pantoprazole PHA 10/08/24 In Process (Protonix) 22:00 Clear Liq Diet DIET 10/09/24 Transmitted Lunch Electrocardigram EKG 10/09/24 Logged 11:08 Basic Metabolic Panel LAB 10/10/24 Verified 04:00 Complete Blood Count LAB 10/10/24 Verified 04:00 Date of Service: Oct 09, 2024 Billing Provider: JOE MAIER MD Common Visit Codes: [id number] INP/OBS CARE(HIGH) JOE MAIER MD Oct 09, 2024 15:44
[2024-10-09] MEDS: MAGNESIUM OXIDE 400 MG TAB PO ONE (17:18)
[2024-10-09] MEDS: MAGNESIUM OXIDE 400 MG TAB PO SCH (21:27)
[2024-10-09] MEDS: METOPROLOL SUCCINATE XL 50 MG TAB PO SCH (22:59)
[2024-10-10 01:00] VITALS: BP 97/40; PULSE 95; RESP 16; TEMP 97.9; O2SAT 91
[2024-10-10 05:00] VITALS: BP 102/51; PULSE 72; RESP 16; TEMP 98.7; O2SAT 94
[2024-10-10 06:26] LABS: Basophils # (auto) 0 10 ^3/uL (0-0.2); Basophils % (auto) 0.9 % (0.0-2.0); Eosinophils # (auto) 0.3 10 ^3/uL (0-0.8); Eosinophils % (auto) 6.1 % (0.0-7.0); Hemoglobin 9.4 g/dL (12.2-16.2); Lymphocytes # (auto) 1.9 10 ^3/uL (0.4-5.4); Lymphocytes % (auto) 43.7 % (10.0-50.0); Mean Corpuscular Hgb Conc. 33.6 g/dL (32.0-36.0); Mean Corpuscular Volume 80.5 fL (80.0-100.0); Monocytes # (auto) 0.4 10 ^3/uL (0-1.3); Monocytes % (auto) 10.1 % (0.0-12.0); Neutrophils # (auto) 1.7 10 ^3/uL (1.6-8.6); Neutrophils % (auto) 39.2 % (37.0-80.0); Nucleated Red Blood Cells % 0.2 %; Platelet Count (auto) 178 10^3/uL (140-450); Red Blood Cells 3.49 10^6/uL (4.0-5.20); Red Cell Distribution Width 17.5 % (11.8-14.3); White Blood Cell 4.3 10^3/uL (4.4-10.8)
[2024-10-10 06:37] LABS: Calcium 9.3 mg/dL (8.7-10.4); Potassium 3.7 mmol/L (3.5-5.1); Sodium 140 mmol/L (136-145)
[2024-10-10 06:38] LABS: Anion Gap 6 (5-15); Carbon Dioxide 26 mmol/L (20-31)
[2024-10-10 06:43] LABS: BUN/Creatinine Ratio 8.1 (10.0-20.0); Blood Urea Nitrogen 7 mg/dL (9-23); Chloride 108 mmol/L (98-107); Glucose 92 mg/dL (74-106)
[2024-10-10 09:00] VITALS: BP 121/65; PULSE 85; RESP 16; TEMP 98.3; O2SAT 93
[2024-10-10 12:43] VITALS: BP 126/66; PULSE 99; RESP 17; TEMP 98.2; O2SAT 95
--- NOTE | 2024-10-10 13:51 | ECG ---
[facility] Test Date: 2024-10-08 Test Time: 07:24:05 Pat Name: JOSEPH WALTON Department: ED Room: [facility]8T B Gender: F Acid Bath Mixer: VALENTE : 1945 Requested By: JOE MAIER Order Number: [id number] Reading MD: Bry Simon Measurements Intervals [place] Rate: 83 P: 0 MN: 0 QRS: 84 QRSD: 96 T: -49 QT: 411 QTc: 483 Interpretive Statements Afib/flut and V-paced complexes Low voltage No further rhythm analysis attempted due to paced rhythm Anterior infarct, old Electronically Signed On 10-10-2024 19:09:18 PDT by Bry Simon Please click the below link to view image of tracing.
[2024-10-10] MEDS ORDERED: METR-344 PO (14:38)
[2024-10-10] MEDS ORDERED: LEVO500T91 PO (14:38)
[2024-10-10] MEDS ORDERED: PROBTAB12 OR (14:38)
--- NOTE | 2024-10-10 14:43 | DVHDS2 ---
Discharge Summary Date of Admission Oct 07, 2024 at 12:48 Date of Discharge: Oct 10, 2024 Admitting Diagnosis colitis Labs/Diagnostic Data: Laboratory Results Test 10/10/24 11:35 10/10/24 04:15 10/09/24 06:06 10/08/24 04:17 POC Glucose 109 mg/dl (70-106) White Blood Count 4.3 10^3/uL (4.4-10.8) Red Blood Count 3.49 10^6/uL (4.0-5.20) Hemoglobin 9.4 g/dL (12.2-16.2) Hematocrit 28.0 % (36.0-46.0) Mean Corpuscular Volume 80.5 fL (80.0-100.0) Mean Corpuscular Hemoglobin 27.0 pg (28.0-32.0) Mean Corpuscular Hemoglobin Concent 33.6 g/dL (32.0-36.0) Red Cell Distribution Width 17.5 % (11.8-14.3) Platelet Count 178 10^3/uL (140-450) Mean Platelet Volume 8.6 fL (6.9-10.8) Neutrophils (%) (Auto) 39.2 % (37.0-80.0) Lymphocytes (%) (Auto) 43.7 % (10.0-50.0) Monocytes (%) (Auto) 10.1 % (0.0-12.0) Eosinophils (%) (Auto) 6.1 % (0.0-7.0) Basophils (%) (Auto) 0.9 % (0.0-2.0) Neutrophils # (Auto) 1.7 10 ^3/uL (1.6-8.6) Lymphocytes # (Auto) 1.9 10 ^3/uL (0.4-5.4) Monocytes # (Auto) 0.4 10 ^3/uL (0-1.3) Eosinophils # (Auto) 0.3 10 ^3/uL (0-0.8) Basophils # (Auto) 0 10 ^3/uL (0-0.2) Nucleated Red Blood Cells 0.2 % Sodium Level 140 mmol/L (136-145) Potassium Level 3.7 mmol/L (3.5-5.1) Chloride Level 108 mmol/L (98-107) Carbon Dioxide Level 26 mmol/L (20-31) Anion Gap 6 (5-15) Blood Urea Nitrogen 7 mg/dL (9-23) Creatinine 0.86 mg/dL (0.550-1.02) Glomerular Filtration Rate Calc 68 mL/min (>90) BUN/Creatinine Ratio 8.1 (10.0-20.0) Serum Glucose 92 mg/dL (74-106) Calcium Level 9.3 mg/dL (8.7-10.4) Magnesium Level 1.9 mg/dL (1.6-2.6) Total Bilirubin 0.5 mg/dL (0.2-1.0) Aspartate Amino Transferase (AST) 17 U/L (13-40) Alanine Aminotransferase (ALT) 19 U/L (7-40) Alkaline Phosphatase 57 U/L (46-116) Total Protein 6.2 g/dL (5.7-8.2) Albumin 3.8 g/dL (3.2-4.8) Test 10/07/24 12:20 10/07/24 08:39 10/07/24 07:45 10/07/24 07:38 Lactic Acid Level 1.3 mmol/L (0.4-2.0) Troponin I High Sensitivity 4 ng/L (</=34) Triglycerides Level 81 mg/dL (< 150) Cholesterol Level 117 mg/dL (< 200) LDL Cholesterol 49 mg/dL (< 100) HDL Cholesterol 54 mg/dL (40-59) Thyroid Stimulating Hormone (TSH) 2.12 uIU/mL (0.55-4.78) Urine Color Yellow (Yellow) Urine Clarity Clear (Clear) Urine pH 7.0 (5.0-9.0) Urine Specific [place] 1.035 (1.001-1.035) Urine Protein Negative (Negative) Urine Ketones Negative (Negative) Urine Blood Negative /uL (Negative) Urine Nitrite Negative (Negative) Urine Bilirubin Negative (Negative) Urine Urobilinogen Normal mg/dL (Negative) Urine Leukocyte Esterase Negative /uL (Negative) Urine RBC <1 /hpf (0 - 4) Urine Microscopic WBC < 1 /HPF (0-5) Urine Squamous Epithelial Cells Few /hpf (<5) Urine Bacteria None seen /hpf (None Seen) Urine Glucose Normal mg/dL (Normal) Urine Opiates Screen Neg (NEGATIVE) Urine Fentanyl Screen Neg (NEGATIVE) Urine Barbiturates Screen Neg (NEGATIVE) Urine Phencyclidine Screen Neg (NEGATIVE) Urine Amphetamines Screen Neg (NEGATIVE) Urine Benzodiazepines Screen Neg (NEGATIVE) Urine Cocaine Screen Neg (NEGATIVE) Urine Cannabinoids Screen Neg (NEGATIVE) Hemoglobin A1c 6.9 % A1C (<5.7) B-Type Natriuretic Peptide 530.36 pg/mL (0-100) Other Laboratory Tests 10/10/24 04:15 Brief Hx & Hospital Course: Ro Medina is an 79-year-old female with past medical history of hypertension, diabetes, AFib, and pacemaker placement who presents to the ED with abdominal pain, shortness of breath, nausea, vomiting, productive cough with white phlegm, and palpitations x2 days. Patient reports that she had the pacemaker placed in 2015 but forgot which hospital. Patient's daughter Louisa at the bedside and reports that her mom sees a GI doctor for her pancreas in [place]. When asked about her spleen patient and daughter reports that she sees a GI specialist. Patient's daughter also reports that she takes apixaban for her pacemaker that was placed in 2015. She reports that her mom currently stays with her. Patient had to be placed on Levophed for blood pressure support. Patients is feeling better no long on vasopressors. Will be discharged home on a FULL LIQUID diet with Levaquin and Flagyl. See DC clinic. Operations or Procedures Exam: CT CT AB PEL WITH IV CON ONLY History: abdominal pain COMPARISON: None Technique: Multidetector spiral CT of the abdomen and pelvis was performed from lung bases to pubic symphysis. Intravenous contrast was administered during this examination. Portal venous imaging was obtained. Axial, coronal and sagittal multiplanar reformats were performed by the technologist on a separate workstation. Radiation Dose : 1. Abdomen/Pelvis: CTDIvol 5.65mGy, DLP 271.73 mGy*cm. Findings: Lung Bases: Cardiomegaly. Dependent atelectasis. Liver: The liver is normal in size. No focal lesions. Normal hepatic vascular enhancement. Gallbladder and Biliary Tree: Unremarkable Spleen: Spleen is present in the right side of the abdomen. Pancreas: The pancreas is normal in appearance without focal lesions or abnormal enhancement. Adrenal Glands: Unremarkable Kidneys: No hydronephrosis. Bladder: Unremarkable Bowel: Stomach is on the right side of the abdomen. Diverticulosis. Mild bowel wall thickening of the colon. Normal appendix is visualized in the right lower quadrant without findings of appendicitis. Ascites: Absent Lymphadenopathy: No mesenteric, retroperitoneal or periportal lymphadenopathy. Abdominal Wall and Mesentery: Unremarkable. Vasculature: The visualized abdominal aorta is normal in size and caliber. There is calcified atherosclerotic plaque involving the aorta and its branches. Abdominal and pelvic vessels demonstrate normal enhancement. Pelvic Organs: Unremarkable Musculoskeletal: No aggressive focal bony lesions, acute fractures or dislocation. Degenerative changes of the spine. IMPRESSION: Possible mild colitis. 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 Radiation optimization: All CT scans at this facility use at least one of these dose optimization techniques: automated exposure control mA and/or kV adjustment per patient size (includes targeted exams where dose is matched to clinical indication) or iterative reconstruction. Condition at Discharge: Stable Final Diagnosis/Problems List # Acute Colitis - Abx - Advance to full liquids # Septic Shock requiring Vasopressors - s/p Levophed - resolved # A-Fibb - Rate control Discharge Disposition: Home Discharge Instruct/Medications Diet: See Comment Diet comment: FULL LIQUID Activity: Light activity Follow Up/Referral: DC Clinic in 1 week Medications: see [facility] Discharge Statement: "Patient was advised to return to the ER or call 911 if any headaches, dizziness, shortness of breath, chest pain, abdominal pain, bleeding, fevers, or worsening of medical condition. Patient was counseled about treatment plan, medications, possible side effects, patientverbalized understanding. All questions were answered to the best of my ability. This discharge took greater then 30 minutes in planning, reviewing documentation, counseling the patient, and discussing with other team members." ASSESSMENT ASSESSMENT Assessment Date of Service: Oct 10, 2024 Billing Provider: JOE MAIER MD Common Visit Codes: [id number] DISCH DAY >30min JOE MAIER MD Oct 10, 2024 14:43
[2024-10-10] MEDS: CIPROFLOXACIN 400MG/200ML 200 ML IV ONE (16:52)
[2024-10-10 17:12] VITALS: BP 125/62; PULSE 89; RESP 17; TEMP 98.5; O2SAT 93
[2024-10-10] MEDS ORDERED: CIPROFLOXACIN 400MG/200ML 200 ML IV SCH (21:00)
--- NOTE | 2024-10-11 17:10 | ECG ---
[facility] Test Date: 2024-10-09 Test Time: 16:22:22 Pat Name: JOSPEH WALTON Department: Respiratoy Room: 0278T B Gender: F Test Fixture Designer: gwen : 1945 Requested By: JOE MAIER Order Number: [id number] Reading MD: Bry Simon Measurements Intervals [place] Rate: 108 P: 0 NM: 0 QRS: 12 QRSD: 87 T: -12 QT: 348 QTc: 467 Interpretive Statements Atrial fibrillation Ventricular premature complex Low voltage, extremity leads Probable anteroseptal infarct, old Electronically Signed On 10-12-2024 22:27:45 PDT by Bry Simon Please click the below link to view image of tracing.
--- NOTE | 2024-10-12 12:46 | ECG ---
[facility] Test Date: 2024-10-08 Test Time: 07:22:26 Pat Name: JOSEPH WALTON Department: ER Room: [facility]8T B Gender: F Order Checker: VALENTE : 1945 Requested By: CANDI DE LOS SANTOS Order Number: [id number] Reading MD: Bry Simon Measurements Intervals [place] Rate: 81 P: 0 FL: 0 QRS: 72 QRSD: 95 T: -47 QT: 445 QTc: 517 Interpretive Statements Atrial fibrillation Anterior infarct, old Prolonged QT interval Electronically Signed On 10-12-2024 22:29:37 PDT by Bry Simon Please click the below link to view image of tracing.
--- NOTE | 2024-10-13 12:57 | ECG ---
[facility] Test Date: 2024-10-10 Test Time: 14:40:46 Pat Name: JOSEPH WALTON Department: Room: [facility]8T B Gender: F Cell Stripper: Tiera Muro : 1945 Requested By: JOE MAIER Order Number: [id number] Reading MD: Measurements Intervals [place] Rate: 84 P: 0 PA: 0 QRS: 115 QRSD: 95 T: 40 QT: 390 QTc: 462 Interpretive Statements Atrial fibrillation Anteroseptal infarct, age indeterminate Please click the below link to view image of tracing.
== END 2024-10-10 18:49 | disposition home or self-care (01) | DRG 871 ==
LOC: ER 07:16 → OVERFLOW 12:48 → TELE-WESTW 10-08 17:55
PROVIDERS: ADMIT Internal Medicine; ATTEND Internal Medicine
DX: A41.9 Sepsis, unspecified organism (principal); R65.21 Severe sepsis with septic shock; E87.1 Hypo-osmolality and hyponatremia; N17.9 Acute kidney failure, unspecified; A09 Infectious gastroenteritis and colitis, unspecified; E87.70 Fluid overload, unspecified; I10 Essential (primary) hypertension; I48.91 Unspecified atrial fibrillation; E11.9 Type 2 diabetes mellitus without complications; Z79.01 Long term (current) use of anticoagulants; Z95.0 Presence of cardiac pacemaker; Z83.3 Family history of diabetes mellitus; Z79.899 Other long term (current) drug therapy
CPT/HCPCS: 36415; 71045; 74177; 80048; 80053; 80061; 80307; 81001; 82962; 83036; 83605; 83735; 83880; 84443; 84484; 85025; 87040; 87081; 93005; 96361; 96365; 96366; 96367; 96375; 96376; 99291; G0378; J1815; J1956; J2405; J2470; J3490

== ENCOUNTER → 2024-11-14 | Outpatient (CLI) | payer MEDICARE, MEDICAID ==
[~2024-11-14] MED LIST changes: +LEVO500T91 PO; +METR-344 PO; +PROBTAB12 OR
[2024-11-14 10:05] LABS: Basophils # (auto) 0 10 ^3/uL (0-0.2); Hematocrit 34.7 % (36.0-46.0); Lymphocytes # (auto) 1.8 10 ^3/uL (0.4-5.4); Monocytes # (auto) 0.4 10 ^3/uL (0-1.3); Nucleated Red Blood Cells % 0.1 %; White Blood Cell 4.4 10^3/uL (4.4-10.8)
[2024-11-14 10:08] LABS: Eosinophils # (auto) 0.2 10 ^3/uL (0-0.8); Eosinophils % (auto) 5.1 % (0.0-7.0); Hemoglobin 11.3 g/dL (12.2-16.2); Mean Corpuscular Hemoglobin 26.7 pg (28.0-32.0); Mean Corpuscular Hgb Conc. 32.5 g/dL (32.0-36.0); Mean Corpuscular Volume 82.3 fL (80.0-100.0); Monocytes % (auto) 9.5 % (0.0-12.0); Neutrophils % (auto) 44.4 % (37.0-80.0); Platelet Count (auto) 223 10^3/uL (140-450); Red Blood Cells 4.22 10^6/uL (4.0-5.20); Red Cell Distribution Width 17.6 % (11.8-14.3)
[2024-11-14 11:12] LABS: Urine Bacteria FEW /hpf (None Seen); Urine Blood Negative /uL (Negative); Urine Clarity Clear (Clear); Urine Color Yellow (Yellow); Urine Protein, UAD TRACE (Negative); Urine Specific Gravity 1.027 (1.001-1.035); Urine Squamous Epithelial Cell FEW /hpf (<5); Urine Urobilinogen Normal (Negative); Urine WBC 1 /HPF (0-5)
[2024-11-14 11:26] LABS: Alanine Aminotransferase 23 U/L (7-40); Alkaline Phosphatase 93 U/L (46-116); Anion Gap 7 (5-15); BUN/Creatinine Ratio 15.8 (10.0-20.0); Blood Urea Nitrogen 16 mg/dL (9-23); Calcium 9.8 mg/dL (8.7-10.4); Carbon Dioxide 28 mmol/L (20-31); Chloride 104 mmol/L (98-107); Potassium 4.4 mmol/L (3.5-5.1); Sodium 139 mmol/L (136-145); Triglycerides 105 mg/dL (< 150)
[2024-11-14 11:27] LABS: Albumin 4.4 g/dL (3.2-4.8); Aspartate Aminotransferase 22 U/L (13-40); LDL Cholesterol 47 mg/dL (< 100); Total Protein 7.1 g/dL (5.7-8.2)
[2024-11-14 11:28] LABS: Bilirubin, Total 0.5 mg/dL (0.2-1.0); Cholesterol 114 mg/dL (< 200); HDL Cholesterol 49 mg/dL (40-59)
[2024-11-14 11:32] LABS: Glucose 136 mg/dL (74-106)
== END | disposition home or self-care (01) ==
LOC: LAB 09:20
PROVIDERS: ATTEND Internal Medicine
DX: I10 Essential (primary) hypertension (principal); Z00.01 Encounter for general adult medical examination with abnormal findings; Z79.899 Other long term (current) drug therapy
CPT/HCPCS: 36415; 80053; 80061; 81001; 83036; 84439; 84443; 85025

== ENCOUNTER → 2024-11-21 | Outpatient (CLI) | payer MEDICARE, MEDICAID ==
[2024-11-21 11:04] LABS: Creatinine, Urine 37.23 mg/dL (30.0-125.0)
== END | disposition home or self-care (01) ==
LOC: LAB 09:51
PROVIDERS: ATTEND Internal Medicine
DX: E11.65 Type 2 diabetes mellitus with hyperglycemia (principal)
CPT/HCPCS: 36415; 82043; 82570

== ENCOUNTER 2025-01-09 08:06 | Outpatient (CLI) | payer MEDICARE, MEDICAID ==
[~2025-01-09] VITALS: Ht 149.9 cm; Wt 54.0 kg
[2025-01-09] MEDS: REGADENOSON 0.4 MG/5 ML SYRG IV ONE ×2 (10:20→10:25)
--- NOTE | 2025-01-09 11:50 | DVHSR ---
APPROVED REPORT Exam: Nuclear Stress Test BMI: 0 Stress Test Details HR Max Heart Rate (APMHR): 139.767174 bpm Target HR (85% APMHR): 118.726662 bpm BP ECG Stress ECG Conclusion poor image quality on stress imaging with decreased counts, this decreases overall sensitivity no severe ischemia noted normal lvef, 61% NM EXAM: Myocardial Perfusion REST/STRESS Imaging Protocol: Rest Tc-99m/Stress Tc-99m 1 day Resting Data Rest SPECT myocardial perfusion imaging was performed in supine position 60 minutes following the int ravenous injection of 12.0 mCi of Tc-99m Sestamibi. Time of rest injection: 08:50 Date: 01/09/2025 Time of rest imagin:50 Date: 01/09/2025 The images were gated to evaluate regional wall motion and calculate left ventricular ejection fracti on. Administration Route: IV Administration Site: Right Arm Pharmacologic Stress Pharmacologic stress test was performed by injecting Regadenoson 0.4 mg IV push followed by the intra venous injection of 30.1 mCi of Tc-99m Sestamibi. Time of stress injection: 10:15 Date: 01/09/2025 Time of stress imagin:15 Date: 01/09/2025 Administration Route: IV Administration Site: Right Arm Gated Stress SPECT was performed 60 minutes after stress injection. The images were gated to evaluate regional wall motion and calculate left ventricular ejection fracti on. Stress only was performed in the Supine position. Nuclear Conclusion Nuclear Findings: negative for ischemia poor image quality on stress imaging with decreased counts, this decreases overall sensitivity no severe ischemia noted normal lvef, 61%
== END 2025-01-09 17:00 | disposition home or self-care (01) ==
LOC: XYW 08:06
PROVIDERS: ATTEND Internal Medicine
DX: R07.9 Chest pain, unspecified (principal); R06.02 Shortness of breath; I48.20 Chronic atrial fibrillation, unspecified; R63.4 Abnormal weight loss; M54.9 Dorsalgia, unspecified; G89.29 Other chronic pain; R53.83 Other fatigue
CPT/HCPCS: 78452; 93017; A9500; J2785

== ENCOUNTER 2025-03-17 10:30 | Inpatient (IN) | payer MEDICARE, MEDICAID ==
[~2025-03-17] VITALS: Ht 152.4 cm; Wt 56.3 kg
--- NOTE | 2025-03-17 10:49 | ECG ---
[facility] Test Date: 2025-03-17 Test Time: 10:48:22 Pat Name: JOSEPH WALTON Department: ED Room: 0276T Gender: F Environmental Marketer: MAIKEL : 1945 Requested By: RANDY AGEE Order Number: [id number] Reading MD: Bry Simon Measurements Intervals [place] Rate: 86 P: 0 MN: 0 QRS: 94 QRSD: 63 T: 206 QT: 472 QTc: 565 Interpretive Statements Right and left arm electrode reversal, interpretation assumes no reversal Atrial fibrillation Anterior infarct, old Borderline ST depression, diffuse leads Prolonged QT interval Electronically Signed On 03-21-2025 14:30:02 PDT by Bry Simon Please click the below link to view image of tracing.
--- NOTE | 2025-03-17 10:52 | ED.PDOC ---
History of Present Illness HPI Comments This is a 80-year-old female with past medical history of hypertension, CHF, Afib, DVT on Eliquis presented to the ED with a chief complaint of intermittent left-sided chest pain for last 2 weeks prior to this visit. The patient stated that left-sided chest pain for 2 weeks but this morning chest pain felt like sharp in nature, 8/10, radiates to the back and associated with shortness of breath and nausea. She denies diaphoresis, lightheadedness, dizziness, abdominal pain, vomiting, dysuria, hematuria, positive sick contact, recent traveling or any change in bowel habit. PCP: Dr. Porter Chief Complaint: Chest Pain Time Seen by MD: 10:34 Allergies: Coded Allergies: NO KNOWN ALLERGIES (Unverified , 06/21/24) Home Meds Active Scripts Probiotic Product (PROBIOTIC) Tab, 1 TAB OR DAILY for 30 Days, #30 TAB Prov:JOE MAIER MD 10/10/24 Metronidazole (Flagyl) 500 Mg Tab, 500 MG PO TID for 10 Days, #30 TAB Prov:JOE MAIER MD 10/10/24 Levofloxacin Hemihydrate (LEVAQUIN 500 MG) 500 Mg Tab, 500 MG PO DAILY for 10 Days, #10 TAB Prov:JOE MAIER MD 10/10/24 Hydrocodone-Acetaminophen (Hydrocodone Bitartrate/AC 10-325 mg) 1 Tab Tab, 1 TAB PO [id number] PRN for 10 Days, #20 TAB Prov:ALBA PORTER MD 06/24/24 Reported Medications Potassium Chloride (POTASSIUM CHLORIDE CR) 10 Meq Tb, 8 MEQ PO DAILY, TAB 06/21/24 Memantine HCl-Donepezil HCl (Namzaric 7-10 mg) 1 Cap Cap, 1 CAP PO DAILY for MEMORY, CAP 06/21/24 Metoprolol Succinate (Metoprolol Succinate Er) 50 Mg Tab, 1 TAB PO DAILY, #30 TAB 5 Refills 06/21/24 Atorvastatin Calcium (ATORVASTATIN CALCIUM) 40 Mg Tab, 1 TAB PO AT NIGHT, #30 TAB 5 Refills 06/21/24 Furosemide (Furosemide) 20 Mg Tab, 1 TAB PO DAILY, #90 TAB 1 Refill 06/21/24 Fluoxetine Hcl (Fluoxetine Hcl) 20 Mg Tab, 0.5 TAB PO DAILY, #90 TAB 3 Refills 06/21/24 Ergocalciferol (VITAMIN D 34206 UNIT) 50,000 [place], [address] UNIT PO ONCE AT WEEK, CAP 06/21/24 Cetirizine Hcl (Zyrtec Allergy) 10 Mg Cap, 10 MG PO DAILY, CAP 06/21/24 Apixaban Base (ELIQUIS) 2.5 Mg Tab, 2.5 MG PO BID, TAB 06/21/24 Information Source: Patient Mode of Arrival: Ambulatory Severity: Moderate Timing: Days Duration: Since onset Past Medical History PAST MEDICAL HISTORY: AFIB, CHF, DM, HTN Past Medical History (Other): DVT Surgical History: Denies all surgeries 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 Family History Family History: Reviewed,noncontributory to illness, Unknown Social History Smoker: Non-Smoker Alcohol: Denies ETOH Use Drugs: Denies Drug Use Lives In: Home Constitutional: reports: fatigue; denies: chills, diaphoresis, fever, malaise, sweats, weakness, others EENTM: denies: blurred vision, double vision, ear bleeding, ear discharge, ear drainage, ear pain, ear ringing, eye pain, eye redness, hearing loss, mouth pain, mouth swelling, nasal discharge, nose bleeding, nose congestion, nose pain, photophobia, tearing, throat pain, throat swelling, voice changes, others Respiratory: reports: SOB with excertion Cardiovascular: reports: chest pain; denies: dizzy spells, diaphoresis, Dyspnea on exertion, edema, irregular heart beat, left arm pain, lightheadedness, palpitations, PND, syncope, others Gastrointestinal: denies: abdomen distended, abdominal pain, blood streaked bowels, constipated, diarrhea, dysphagia, difficulty swallowing, hematemesis, melena, nausea, poor appetite, poor fluid intake, rectal bleeding, rectal pain, vomiting, others Genitourinary: denies: abnormal vagina bleeding, burning, dyspareunia, dysuria, flank pain, frequency, hematuria, incontinence, pain, , vagina discharge, urgency, others Neurological: denies: dizziness, fainting, headache, left sided numbness, left sided weakness, numbness, paresthesia, pre-existing deficit, right sided numbness, right sided weakness, seizure, speech problems, tingling, tremors, weakness, others Musculoskeletal: denies: back pain, gout, joint pain, joint swelling, muscle pain, muscle stiffness, neck pain, others Integumetry: denies: bruises, change in color, change in hair/nails, dryness, laceration, lesions, lumps, rash, wounds, others Allergic/Immunocompromised: denies: Difficulty Healing, Frequent Infections, Hives, Itching, others Hematologic/Lymphatic: reports: blood clots; denies: anemia, easy bleeding, easy bruising, swollen glands, others Endocrine: denies: excessive hunger, excessive sweating, excessive thirst, excessive urination, flushing, intolerance to cold, intolerance to heat, unexplained weight gain, unexplained weight loss, others Psychiatric: denies: anxiety, bipolar disorder, depression, hopeless, panic disorder, schizophrenia, sleepless, suicidal, others Physical Exam General Appearance: Mild Distress HEENT: Normal ENT Inspection, Pharynx Normal, TMs Normal Neck: Full Range of Motion, Non-Tender, Normal, Normal Inspection Respiratory: Chest Non-Tender, Lungs Clear, No Accessory Muscle Use, No Respiratory Distress, Normal Breath Sounds Cardiovascular: No Edema, No JVD, No Murmur, No Gallop, Normal Peripheral Pulses, Regular Rate/Rhythm Breast Exam: Deferred Gastrointestinal: No Organomegaly, Non Tender, No Pulsatile Mass, Normal Bowel Sounds, Soft Genitalia: Deferred Pelvic: Deferred Rectal: Deferred Extremities: No calf tenderness, Normal capillary refill, Normal inspection, Normal range of motion, Non-tender, No pedal edema Neurologic: aids nurse II-XII nml as Tested, No Motor Deficits, No Sensory Deficits Cerebellar Function: NOT DONE Reflexes: NOT DONE Skin: NOT DONE Peripheral Pulses: 2+ carotid (R), 2+ carotid (L), 2+ femoral (R), 2+ femoral (L), 2+ dorsalis pedis (R), 2+ dorsalis pedis (L), 2+ Radial (R), 2+ Radial (L), 2+ Brachial (R), 2+ Brachial (L) Lymphatic: NOT DONE Was a procedure done? 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 : 1945 Requested By: RANDY AGEE Order Number: [id number] Reading MD: Measurements Intervals [place] Rate: 86 P: 0 UT: 0 QRS: 94 QRSD: 63 T: 206 QT: 472 QTc: 565 Interpretive Statements Right and left arm electrode reversal, interpretation assumes no reversal Atrial fibrillation Anterior infarct, old Borderline ST depression, diffuse leads Prolonged QT interval Differential Dx Considerations may include: Angina, pericarditis, musculoskeletal chest pain, pneumonia, pneumonitis, uncontrolled type 2 diabetes mellitus X-Ray, Labs, Meds, VS Vital Signs Date Time Temp Pulse Resp B/P (MAP) Pulse Ox O2 Delivery O2 Flow Rate FiO2 03/17/25 10:48 86 03/17/25 10:32 97.8 92 18 134/54 96 97.8 Lab Test 03/17/25 11:01 Range/Units White Blood Count 5.2 4.4-10.8 10^3/uL Red Blood Count 4.63 4.0-5.20 10^6/uL Hemoglobin 12.2 12.2-16.2 g/dL Hematocrit 37.3 36.0-46.0 % Mean Corpuscular Volume 80.6 80.0-100.0 fL Mean Corpuscular Hemoglobin 26.3 L 28.0-32.0 pg Mean Corpuscular Hemoglobin Concent 32.6 32.0-36.0 g/dL Red Cell Distribution Width 17.0 H 11.8-14.3 % Platelet Count 234 140-450 10^3/uL Mean Platelet Volume 8.6 6.9-10.8 fL Neutrophils (%) (Auto) 55.8 37.0-80.0 % Lymphocytes (%) (Auto) 33.5 10.0-50.0 % Monocytes (%) (Auto) 7.0 0.0-12.0 % Eosinophils (%) (Auto) 2.6 0.0-7.0 % Basophils (%) (Auto) 1.1 0.0-2.0 % Neutrophils # (Auto) 2.9 1.6-8.6 10 ^3/uL Lymphocytes # (Auto) 1.7 0.4-5.4 10 ^3/uL Monocytes # (Auto) 0.4 0-1.3 10 ^3/uL Eosinophils # (Auto) 0.1 0-0.8 10 ^3/uL Basophils # (Auto) 0.1 0-0.2 10 ^3/uL Nucleated Red Blood Cells 0.1 % D-Dimer, Quantitative 0.32 0.0-0.49 mg/L FEU Sodium Level 136 136-145 mmol/L Potassium Level 4.1 3.5-5.1 mmol/L Chloride Level 102 98-107 mmol/L Carbon Dioxide Level 27 20-31 mmol/L Anion Gap 7 5-15 Blood Urea Nitrogen 15 9-23 mg/dL Creatinine 1.19 H 0.550-1.02 mg/dL Glomerular Filtration Rate Calc 46 >90 mL/min BUN/Creatinine Ratio 12.6 10.0-20.0 Serum Glucose 417 *H 74-106 mg/dL Calcium Level 9.1 8.7-10.4 mg/dL Troponin I High Sensitivity Pending B-Type Natriuretic Peptide 97.30 0-100 pg/mL X-Ray, Labs, Meds, VS Comment ORDERING PHYSICIAN: RANDY AGEE RESIDENT PROCEDURE(s): CXRP - CHEST PORTABLE REASON: Chest pain ORDER NUMBER(s): [id number], ACCESSION NUMBER(s): [id number] CHEST RADIOGRAPH Indication: Chest pain Technique: Single frontal view of the chest was obtained COMPARISON: XY CHEST PORTABLE on DOS: 10/07/24, XY CHEST PORTABLE on DOS: 06/21/24 FINDINGS: Lines and Tubes: Left chest pacemaker Lungs: Clear Pleura: No effusion. No pneumothorax. Cardiomediastinal contours: Unremarkable Bones: Unremarkable IMPRESSION: No acute disease. Images Reviewed?: Images reviewed and evaluated by me Time of 1ST Reevaluation: 12:04 Reevaluation 1ST: Unchanged Patient Education/Counseling: Diagnosis, Treatment Family Education/Counseling: Diagnosis, Treatment Comments This is a 80-year-old female presented to the ER with a chief complaint of intermittent left-sided chest pain for 2 weeks. EKG revealed AFib, prolonged QT and nonspecific ST-T changes Blood sugar is 417 with normal anion gap Creatinine is mildly elevated with possible LAMAR The patient will be admitted for management of uncontrolled type 2 diabetes mellitus and mild LAMAR SEPSIS Sepsis Screen Date sepsis recognized/suspect: Mar 17, 2025 Time Sepsis recognized/suspect: 1034 Recent Procedure: No On Antibiotic Therapy: No Respiratory Rate >20: No Heart Rate >90: Yes Temp<36 C (96.8 F) or >38.3 C: No SBP <90 or MAP <65 mmHG: No New Acute Mental Status Change: No Is the patient on CPAP, BIPAP,: No Physician Orders Troponin-I Hs (03/17/25 10:38) Electrocardigram (03/17/25 11:38) Electrocardigram (03/17/25 13:38) Troponin-I Hs (03/17/25 11:38) Troponin-I Hs (03/17/25 13:38) Chest Portable (03/17/25 10:43) Bilat Lower Dvt (03/17/25 10:43) Insulin R (Human) (Insulin R) (03/17/25 12:00) NS (03/17/25 12:00) Vital Signs Date Time Temp Pulse Resp B/P (MAP) Pulse Ox O2 Delivery O2 Flow Rate FiO2 03/17/25 10:48 86 03/17/25 10:32 97.8 92 18 134/54 96 97.8 Laboratory Tests Test 03/17/25 11:01 White Blood Count 5.2 10^3/uL (4.4-10.8) Departure 1 Departure Time of Disposition: 12:07 Impression: Primary Impression: Uncontrolled type 2 diabetes mellitus Additional Impression: LAMAR (acute kidney injury) Disposition: ADMITTED INPATIENT Admit to: Tele Condition: Guarded Critical Care Note Critical Care Time?: No Stability Stability form required: RANDY Sanchez RESIDENT Mar 17, 2025 10:52
--- NOTE | 2025-03-17 11:16 | DVH ---
CHEST RADIOGRAPH Indication: Chest pain Technique: Single frontal view of the chest was obtained COMPARISON: XY CHEST PORTABLE on DOS: 10/07/24, XY CHEST PORTABLE on DOS: 06/21/24 FINDINGS: Lines and Tubes: Left chest pacemaker Lungs: Clear Pleura: No effusion. No pneumothorax. Cardiomediastinal contours: Unremarkable Bones: Unremarkable IMPRESSION: No acute disease.
[2025-03-17 11:24] LABS: Hematocrit 37.3 % (36.0-46.0); Hemoglobin 12.2 g/dL (12.2-16.2); Mean Corpuscular Hemoglobin 26.3 pg (28.0-32.0); Mean Corpuscular Volume 80.6 fL (80.0-100.0); Nucleated Red Blood Cells % 0.1 %
[2025-03-17 11:35] LABS: Chloride 102 mmol/L (98-107); Potassium 4.1 mmol/L (3.5-5.1); Sodium 136 mmol/L (136-145)
[2025-03-17 11:36] LABS: Anion Gap 7 (5-15); Calcium 9.1 mg/dL (8.7-10.4); Carbon Dioxide 27 mmol/L (20-31)
[2025-03-17 11:41] LABS: BUN/Creatinine Ratio 12.6 (10.0-20.0); Blood Urea Nitrogen 15 mg/dL (9-23)
[2025-03-17 11:44] LABS: Glucose 417 mg/dL (74-106)
[2025-03-17] MEDS: InsuLIN REG 1unit/0.01ml Soln (100units/ml) IV ONE (12:00)
--- NOTE | 2025-03-17 12:26 | DVH ---
Technique: Real-time ultrasound imaging, with color Doppler and compression of the bilateral common femoral vein, femoral vein, greater saphenous vein, and popliteal vein. Indication: rule out DVT Comparison: US LT LOWER DVT on DOS: 06/23/24 Findings: There is normal compressibility and flow augmentation in all of the imaged deep veins. There are no f illing defects. Impression: No evidence of DVT in the bilateral lower extremities
[2025-03-17] MEDS ORDERED: MORPHINE SULFATE INJ 2 MG/ml SYRG IV PRN (15:15)
[2025-03-17] MEDS ORDERED: ONDANSETRON HCL 4 MG/2 ML VIAL IV PRN (15:15)
[2025-03-17] MEDS ORDERED: NITROGLYCERIN 0.4 MG SL TAB SL PRN ×2 (15:15)
[2025-03-17] MEDS ORDERED: DEXTROSE (50%) 50ML SYRG IV PRN (15:15)
[2025-03-17] MEDS ORDERED: MORPHINE SULFATE 4 MG/ML SYR/VIAL IV PRN (15:15)
[2025-03-17] MEDS ORDERED: DIGO0.12 PO (15:51)
[2025-03-17] MEDS ORDERED: ERGOCALCIFEROL 50,000 UNIT(1.25MG) CAP PO SCH (16:00)
--- NOTE | 2025-03-17 16:09 | DVHHP2 ---
History of Present Illness Reason for Visit: Chest pain with palpitations History of Present Illness Ro Medina is an 80-year-old female with past medical history of hypertension, diabetes, AFib, and pacemaker placement who presents to the ED with chest pain with palpitations x1 week. Patient's daughter reports that umm ugalde is compliant with her medications. Patient denies any recent trauma or injury, recent sick contacts, recent ingestion of spoiled food, recent travels, fever, shortness of breath, abdominal pain, nausea vomiting, diarrhea, lightheadedness, weakness, dizziness, or urinary symptoms. Cardiovascular: AFIB, HTN Endocrine: Diabetes Past Surgical History: Other (Pacemaker) Family History: DM, Other (Mom with diabetes and heart disease) Smoke: No ALCOHOL: none Drugs: None Lives: with Family Domestic Violence: Neg Review of Systems Cardiovascular: Chest Pain, Palpitations Allergies: Coded Allergies: NO KNOWN ALLERGIES (Unverified , 06/21/24) Medications Current Medications Medications Dose Ordered Sig/Becca Route Start Time Stop Time Status Last Admin Dose Admin Aspirin 81 mg DAILY PO 03/18/25 10:00 UNV Atorvastatin Calcium 40 mg HS PO 03/17/25 22:00 UNV Morphine Sulfate 2 mg Q30MP PRN IV 03/17/25 15:15 UNV Acetaminophen 650 mg Q6HP PRN PO 03/17/25 15:15 UNV Nitroglycerin 0.4 mg Q5MINP PRN SL 03/17/25 15:15 UNV Ondansetron HCl 4 mg Q4HP PRN IV 03/17/25 15:15 UNV Nitroglycerin 0.4 mg Q5MINP PRN SL 03/17/25 15:15 UNV Morphine Sulfate 2 mg Q30M PRN IV 03/17/25 15:15 UNV Diagnostic Test (Pha) 1 strip ACHS 03/17/25 17:00 UNV Insulin Human Regular ACHS SC 03/17/25 17:00 UNV Dextrose 50 ml UD PRN IV 03/17/25 15:15 UNV Apixaban 2.5 mg BID PO 03/17/25 22:00 UNV Ergocalciferol 50,000 unit QWEEKLY PO 03/17/25 16:00 UNV Furosemide 20 mg DAILY PO 03/18/25 10:00 UNV Metoprolol Succinate 50 mg DAILY PO 03/18/25 10:00 UNV Patient Own Medication 0.5 tab DAILY PO 03/18/25 10:00 UNV Patient Own Medication 1 cap DAILY PO 03/18/25 10:00 UNV Patient Own Medication 8 meq DAILY PO 03/18/25 10:00 UNV Exam Vital Signs Vital Signs Date Time Temp Pulse Resp B/P (MAP) Pulse Ox O2 Delivery O2 Flow Rate FiO2 03/17/25 13:34 84 03/17/25 10:32 97.8 18 134/54 96 97.8 General Appearance: Alert, Oriented X3, Cooperative, No acute distress HEENT: Atraumatic, PERRLA, EOMI, Mucous membr. moist/pink Respiratory: Normal air movement Cardiovascular: Regular rate, Normal S1, Normal S2 Abdominal: Normal bowel sounds, Soft Extremities: Normal pulses Skin: No significant lesion Neuro: Normal gait, Normal speech, Strength at 5/5 X4 ext, Normal tone, Sensation intact Psych/Mental Status: Mental status NL, Mood NL Labs/Xrays Labs Test 03/17/25 14:40 03/17/25 11:01 Range/Units Troponin I High Sensitivity 10 </=34 ng/L White Blood Count 5.2 4.4-10.8 10^3/uL Red Blood Count 4.63 4.0-5.20 10^6/uL Hemoglobin 12.2 12.2-16.2 g/dL Hematocrit 37.3 36.0-46.0 % Mean Corpuscular Volume 80.6 80.0-100.0 fL Mean Corpuscular Hemoglobin 26.3 L 28.0-32.0 pg Mean Corpuscular Hemoglobin Concent 32.6 32.0-36.0 g/dL Red Cell Distribution Width 17.0 H 11.8-14.3 % Platelet Count 234 140-450 10^3/uL Mean Platelet Volume 8.6 6.9-10.8 fL Neutrophils (%) (Auto) 55.8 37.0-80.0 % Lymphocytes (%) (Auto) 33.5 10.0-50.0 % Monocytes (%) (Auto) 7.0 0.0-12.0 % Eosinophils (%) (Auto) 2.6 0.0-7.0 % Basophils (%) (Auto) 1.1 0.0-2.0 % Neutrophils # (Auto) 2.9 1.6-8.6 10 ^3/uL Lymphocytes # (Auto) 1.7 0.4-5.4 10 ^3/uL Monocytes # (Auto) 0.4 0-1.3 10 ^3/uL Eosinophils # (Auto) 0.1 0-0.8 10 ^3/uL Basophils # (Auto) 0.1 0-0.2 10 ^3/uL Nucleated Red Blood Cells 0.1 % D-Dimer, Quantitative 0.32 0.0-0.49 mg/L FEU Sodium Level 136 136-145 mmol/L Potassium Level 4.1 3.5-5.1 mmol/L Chloride Level 102 98-107 mmol/L Carbon Dioxide Level 27 20-31 mmol/L Anion Gap 7 5-15 Blood Urea Nitrogen 15 9-23 mg/dL Creatinine 1.19 H 0.550-1.02 mg/dL Glomerular Filtration Rate Calc 46 >90 mL/min BUN/Creatinine Ratio 12.6 10.0-20.0 Serum Glucose 417 *H 74-106 mg/dL Calcium Level 9.1 8.7-10.4 mg/dL B-Type Natriuretic Peptide 97.30 0-100 pg/mL Technique: Real-time ultrasound imaging, with color Doppler and compression of the bilateral common femoral vein, femoral vein, greater saphenous vein, and popliteal vein. Indication: rule out DVT Comparison: US LT LOWER DVT on DOS: 06/23/24 Findings: There is normal compressibility and flow augmentation in all of the imaged deep veins. There are no filling defects. Impression: No evidence of DVT in the bilateral lower extremities CHEST RADIOGRAPH Indication: Chest pain Technique: Single frontal view of the chest was obtained COMPARISON: XY CHEST PORTABLE on DOS: 10/07/24, XY CHEST PORTABLE on DOS: 06/21/24 FINDINGS: Lines and Tubes: Left chest pacemaker Lungs: Clear Pleura: No effusion. No pneumothorax. Cardiomediastinal contours: Unremarkable Bones: Unremarkable IMPRESSION: No acute disease. SEPSIS Sepsis Screen Date sepsis recognized/suspect: Mar 17, 2025 Time Sepsis recognized/suspect: 1033 Recent Procedure: No On Antibiotic Therapy: No Respiratory Rate >20: No Heart Rate >90: Yes Temp<36 C (96.8 F) or >38.3 C: No SBP <90 or MAP <65 mmHG: No New Acute Mental Status Change: No Is the patient on CPAP, BIPAP,: No Physician Orders Electrocardigram (03/17/25 11:38) Electrocardigram (03/17/25 13:38) Chest Portable (03/17/25 10:43) Bilat Lower Dvt (03/17/25 10:43) Admit (03/17/25 15:08) Code Status (03/17/25 15:08) Vital Signs .PER UNIT PROTOCOL (03/17/25 15:08) Emts (03/17/25 15:08) Cardiac Diet-2gna,Lofat,Lochol (03/17/25 Dinner) Aspirin Tablet (03/18/25 10:00) Atorvastatin (Lipitor) (03/17/25 22:00) Morphine Sulfate Injection (03/17/25 15:15) Acetaminophen Tablet (Tylenol Tablet) (03/17/25 15:15) Complete Blood Count (03/18/25 04:00) Basic Metabolic Panel (03/18/25 04:00) Magnesium (03/18/25 04:00) Lipid Panel (03/18/25 04:00) Echo 2d Mode Cardiac Dop (03/17/25 15:08) Nitroglycerin Sublingual (Ntrostat Subli (03/17/25 15:15) Ondansetron Hcl (Zofran) (03/17/25 15:15) Electrocardigram (03/18/25 04:00) Troponin-I Hs (03/17/25 15:08) Cardiac Rehabilitation - Outpa (03/17/25 ) Nitroglycerin Sublingual (Ntrostat Subli (03/17/25 15:15) Morphine Sulfate Injection (03/17/25 15:15) Stat Ekg For Chest Pain (03/17/25 15:08) Notify Md Of Changes From Base (03/17/25 15:08) Chicken And Fish Cleaner For 24 Hours (03/17/25 15:08) Emergency Dysrhythmia Protocol (03/17/25 15:08) Rhythm Strips Once Every Shift (03/17/25 15:08) Oxygen By Nasal Cannula (03/17/25 15:08) Type And Screen (03/17/25 15:08) Free T4 (Free Thyroxine) (03/17/25 15:08) Urinalysis (03/17/25 15:08) Drug Screen (03/17/25 15:08) Glucose Blood (Accu-Chek Comfort Curve T (03/17/25 17:00) Insulin R (Human) (Insulin R) (03/17/25 17:00) Dextrose 50% Syringe (03/17/25 15:15) Hemoglobin A1c (03/17/25 15:08) Apixaban (Eliquis) (03/17/25 22:00) Ergocalciferol (Vitamin D 50,000 Unit) (03/17/25 16:00) Furosemide Tablet (Lasix Tablet) (03/18/25 10:00) Metoprolol Xl Succinate (Toprol Xl) (03/18/25 10:00) (Nf) Fluoxetine Hcl (03/18/25 10:00) (Nf) Memantine Hcl-Donepezil Hcl (Namzar (03/18/25 10:00) (Nf) Potassium Chloride (Potassium Chlor (03/18/25 10:00) Digoxin Tablet (Lanoxin Tablet) (03/18/25 10:00) Vital Signs Date Time Temp Pulse Resp B/P (MAP) Pulse Ox O2 Delivery O2 Flow Rate FiO2 03/17/25 13:34 84 03/17/25 11:28 94 03/17/25 10:48 86 03/17/25 10:32 97.8 92 18 134/54 96 97.8 Laboratory Tests Test 03/17/25 11:01 White Blood Count 5.2 10^3/uL (4.4-10.8) Assessment/Plan Assessment/Plan Assessment Chest pain with palpitations LAMAR AFib Diabetes type 2 uncontrolled History of hypertension History of pacemaker placed in 2015 Plan Admit to tele Beta-blockers NS 500 cc given in ED Ultrasound bilateral lower extremity noted Chest x-ray noted D-dimer noted BNP noted Troponin noted negative x2 EKG Hemoglobin A1c ISS and Accu-Cheks TSH UA UDS Free T4 Lipid panel Echo Last echo on 06/22/2024 EF 55% Diet Home medications reconciled DVT prophylaxis-patient on Eliquis PUD prophylaxis-not indicated no history of GERD or GI bleed Discussed plan of care with patient, patient's daughter, and nurse [id number] Preventive counseling healthy eating habits, physical activity, and regular checkups Plan discussed with: Patient, Daughter My Orders Orders - HELENE DYER [employer] Procedure Category Date Status Time Admit ADMIT 03/17/25 Transmitted 15:08 Code Status CODE 03/17/25 Transmitted 15:08 Vital Signs JESSICA 03/17/25 In Process 15:08 Emts JESSICA 03/17/25 In Process 15:08 Cardiac DIET 03/17/25 Transmitted Diet-2gna,Lofat,Lochol Dinner Aspirin Tablet PHA 03/18/25 Logged 10:00 Atorvastatin (Lipitor) PHA 03/17/25 Logged 22:00 Morphine Sulfate PHA 03/17/25 Logged Injection 15:15 Acetaminophen Tablet PHA 03/17/25 Logged (Tylenol Tablet) 15:15 Complete Blood Count LAB 03/18/25 Verified 04:00 Basic Metabolic Panel LAB 03/18/25 Verified 04:00 Magnesium LAB 03/18/25 Verified 04:00 Lipid Panel LAB 03/18/25 Verified 04:00 Echo 2d Mode Cardiac US 03/17/25 Logged DOP 15:08 Nitroglycerin PHA 03/17/25 Logged Sublingual (Ntrostat 15:15 Ondansetron Hcl PHA 03/17/25 Logged (Zofran) 15:15 Electrocardigram EKG 03/18/25 Logged 04:00 Troponin-I Hs LAB 03/17/25 Logged 15:08 Cardiac JESSICA 03/17/25 In Process Rehabilitation - Outpa Nitroglycerin PHA 03/17/25 Logged Sublingual (Ntrostat 15:15 Morphine Sulfate PHA 03/17/25 Logged Injection 15:15 Stat Ekg For Chest [facility] 03/17/25 In Process Pain 15:08 Notify Of Changes [facility] 03/17/25 In Process From Base 15:08 Chicken And Fish Cleaner For [facility] 03/17/25 In Process 24 Hours 15:08 Emergency Dysrhythmia JESSICA 03/17/25 In Process Protocol 15:08 Rhythm Strips Once [facility] 03/17/25 In Process Every Shift 15:08 Oxygen By Nasal RT 03/17/25 Transmitted Cannula 15:08 Type And Screen BBK 03/17/25 Logged 15:08 Free T4 (Free LAB 03/17/25 Logged Thyroxine) 15:08 Urinalysis LAB 03/17/25 Logged 15:08 Drug Screen LAB 03/17/25 Logged 15:08 Glucose Blood PHA 03/17/25 Logged (Accu-Chek Comfort 17:00 Insulin R (Human) PHA 03/17/25 Logged (Insulin R) 17:00 Dextrose 50% Syringe PHA 03/17/25 Logged 15:15 Hemoglobin A1c LAB 03/17/25 Logged 15:08 Apixaban (Eliquis) PHA 03/17/25 Logged 22:00 Ergocalciferol PHA 03/17/25 Logged (Vitamin D 50,000 16:00 Furosemide Tablet PHA 03/18/25 Logged (Lasix Tablet) 10:00 Metoprolol Xl PHA 03/18/25 Logged Succinate (Toprol Xl) 10:00 (Nf) Fluoxetine Hcl PHA 03/18/25 Logged 10:00 (Nf) Memantine PHA 03/18/25 Logged Hcl-Donepezil Hcl 10:00 (Nf) Potassium PHA 03/18/25 Logged Chloride (Potassium 10:00 Digoxin Tablet PHA 03/18/25 Transmitted (Lanoxin Tablet) 10:00 Date of Service: Mar 17, 2025 Billing Provider: HELENE DYER Common Visit Codes: [id number] INP/OBS CARE (HIGH) Secondary Visit Codes: [id number] COUNSELING IND HELENE DYER Mar 17, 2025 16:08
[2025-03-17] MEDS: ACCU-CHEK COMFORT CURVE STRIP VI SCH (17:00)
[2025-03-17 19:18] LABS: Urine Protein, UAD TRACE (Negative)
[2025-03-17 19:26] LABS: Amphetamine Screen, Urine Neg (NEGATIVE)
[2025-03-17 19:33] LABS: Barbiturate Scree,Urine Neg (NEGATIVE); Benzodiazephine Screen, Urine Neg (NEGATIVE); Cannabinoid Screen, Urine Neg (NEGATIVE); Cocaine Screen, Urine Neg (NEGATIVE); Opiate Scree,Urine Neg (NEGATIVE); Phencyclidine Screen, Urine Neg (NEGATIVE)
[2025-03-17] MEDS: SODIUM CHLORIDE 0.9% 500 ML IV ONE (20:16)
[2025-03-17] MEDS: InsuLIN REG 1unit/0.01ml Soln (100units/ml) SC SCH (20:17)
[2025-03-17 20:20] VITALS: PULSE 95; RESP 16; O2SAT 95
[2025-03-17 22:50] VITALS: BP 137/48; PULSE 68; RESP 18; TEMP 98; O2SAT 98
[2025-03-17] MEDS: ATORVASTATIN 20 MG TAB PO SCH (23:00)
[2025-03-17] MEDS: APIXABAN 2.5 MG TAB PO SCH (23:00)
[2025-03-18] VITALS (8 sets, daily range): BP systolic 107–136; BP diastolic 44–62; PULSE 60–115; RESP 16–18; TEMP 97.8–98.7; O2SAT 96–99
[2025-03-18 06:05] LABS: Hematocrit 34.7 % (36.0-46.0); Hemoglobin 11.4 g/dL (12.2-16.2); Mean Corpuscular Hemoglobin 26.2 pg (28.0-32.0); Mean Corpuscular Volume 79.5 fL (80.0-100.0); Nucleated Red Blood Cells % 0.1 %
[2025-03-18 06:10] LABS: Calcium 9.1 mg/dL (8.7-10.4); Chloride 105 mmol/L (98-107); Potassium 3.7 mmol/L (3.5-5.1); Sodium 141 mmol/L (136-145)
[2025-03-18 06:11] LABS: Anion Gap 11 (5-15); Carbon Dioxide 25 mmol/L (20-31)
[2025-03-18 06:16] LABS: BUN/Creatinine Ratio 14.6 (10.0-20.0); Blood Urea Nitrogen 15 mg/dL (9-23); Triglycerides 81 mg/dL (< 150)
[2025-03-18 06:17] LABS: Glucose 225 mg/dL (74-106); Magnesium 1.7 mg/dL (1.6-2.6)
[2025-03-18 06:18] LABS: Cholesterol 103 mg/dL (< 200)
[2025-03-18 06:19] LABS: HDL Cholesterol 37 mg/dL (40-59)
[2025-03-18] MEDS: MEMANTINE HCL DONEPEZIL HCL PO SCH (10:00)
[2025-03-18] MEDS ORDERED: METOPROLOL SUCCINATE XL 50 MG TAB PO SCH (10:00)
[2025-03-18] MEDS: FUROSEMIDE 20 MG TAB PO SCH (10:00)
[2025-03-18] MEDS: DIGOXIN 0.125 MG TAB PO SCH (11:02)
[2025-03-18] MEDS: POTASSIUM CHLORIDE 8 MEQ TAB PO SCH (11:03)
--- NOTE | 2025-03-18 11:13 | ECG ---
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
[2025-03-18] MEDS: ACETAMINOPHEN 325 MG TAB PO PRN (11:39)
--- NOTE | 2025-03-18 12:05 | DVHPN2 ---
Reviewed: Care Plan, H&P, Labs, Medications, Previous Orders, Radiology Changes from previous H/P or p: No Changes Cardiovascular: Chest Pain, Palpitations Objective Vitals Vital Signs Date Time Temp Pulse Resp B/P (MAP) Pulse Ox O2 Delivery O2 Flow Rate FiO2 03/18/25 11:02 66 03/18/25 10:00 136/55 03/18/25 09:00 98.1 17 99 98.1 03/17/25 22:50 Room Air* 0 21 Intake/Output Intake and Output 03/18/25 07:00 Intake Total 240 ml Balance 240 ml Intake Oral 240 ml # Voids 3 Medications Current Medications Medications Dose Ordered Sig/Becca Route Start Time Stop Time Status Last Admin Dose Admin Aspirin 81 mg DAILY PO 03/17/25 16:03 03/18/25 11:03 81 MG Atorvastatin Calcium 40 mg HS PO 03/17/25 22:00 03/17/25 23:00 40 MG Morphine Sulfate 2 mg Q30MP PRN IV 03/17/25 15:15 Acetaminophen 650 mg Q6HP PRN PO 03/17/25 15:15 03/18/25 11:39 650 MG Nitroglycerin 0.4 mg Q5MINP PRN SL 03/17/25 15:15 Ondansetron HCl 4 mg Q4HP PRN IV 03/17/25 15:15 Diagnostic Test (Pha) 1 strip ACHS 03/17/25 17:00 03/18/25 11:27 1 STRIP Insulin Human Regular ACHS SC 03/17/25 17:00 03/18/25 11:29 8 UNITS Dextrose 50 ml UD PRN IV 03/17/25 15:15 Apixaban 2.5 mg BID PO 03/17/25 22:00 03/18/25 11:04 2.5 MG Ergocalciferol 50,000 unit QWEEKLY PO 03/17/25 16:00 Hold Furosemide 20 mg DAILY PO 03/18/25 10:00 03/18/25 10:00 20 MG Metoprolol Succinate 50 mg DAILY PO 03/18/25 10:00 Hold Fluoxetine HCl 10 mg DAILY PO 03/18/25 10:00 03/18/25 11:04 10 MG Patient Own Medication 1 cap DAILY PO 03/18/25 10:00 Potassium Chloride 8 meq DAILY PO 03/18/25 10:00 03/18/25 11:03 8 MEQ Digoxin 0.125 mg DAILY PO 03/18/25 10:00 03/18/25 11:02 0.125 MG Laboratory Results Laboratory Tests 03/18/25 05:08 Chemistry Test 03/18/25 05:08 Calcium Level 9.1 mg/dL (8.7-10.4) Magnesium Level 1.7 mg/dL (1.6-2.6) Lipid panel Test 03/18/25 05:08 Cholesterol Level 103 mg/dL (< 200) HDL Cholesterol 37 mg/dL (40-59) L Triglycerides Level 81 mg/dL (< 150) Urinalysis Test 03/17/25 18:30 Urine Color Yellow (Yellow) Urine Clarity Clear (Clear) Urine pH 5.5 (5.0-9.0) Urine Specific [place] 1.029 (1.001-1.035) Urine Protein Trace (Negative) H Urine Ketones Negative (Negative) Urine Blood Negative /uL (Negative) Urine Nitrite Negative (Negative) Urine Bilirubin Negative (Negative) Urine Urobilinogen Normal mg/dL (Negative) Urine Leukocyte Esterase Negative /uL (Negative) Urine RBC 4 /hpf (0 - 4) Urine Microscopic WBC 2 /HPF (0-5) Urine Squamous Epithelial Cells Few /hpf (<5) Urine Bacteria None seen /hpf (None Seen) Urine Mucus Few (None Seen) Urine Glucose 4+ mg/dL (Normal) H Labs and/or images reviewed: Labs reviewed by me, Image(s) reviewed by me Assessment/Plan Assessment/Plan Acute chest pain with cardiac risk factors: Troponin negative, BNP normal, consult for Cardiology Dr. Gardner Palpitations check TSH History of pacemaker AFib Hypertension Uncontrolled diabetes with a glucose 417 A1c 9.6: Aggressive insulin sliding scale diabetic education Chest x-ray negative DVT ruled out Urine drug screen negative Echocardiogram 61 % ejection fraction 01/09/2025 Cardiolite stress test neg 01/09/2025 Time Spent 70 minutes Advanced care planning time 20 minutes The patient is full code Plan discussed with: Patient My Orders Orders - SHAUNA HENSLEY MD Procedure Category Date Status Time Thyroid Stimulating LAB 03/18/25 Logged Hormone 11:56 * Cardiology Consult CONS 03/18/25 Transmitted 11:56 Date of Service: Mar 18, 2025 Billing Provider: SHAUNA HENSLEY MD Common Visit Codes: [id number] CARE 30-74 MIN SHAUNA HENSLEY MD Mar 18, 2025 12:05
--- NOTE | 2025-03-18 12:33 | DVHINCON2 ---
Date Seen: Mar 18, 2025 Referring Physician MD Madan Reason for Consultation Chest pain and palpitations History of Present Illness This is a [place]an-speaking 80-year-old female patient who presents to the emergency room with chief complaint of palpitations for two weeks. Associated symptoms include dizziness. Patient also mentions chest pain for one day. She describes the pain as unprovoked, intermittent, tight in nature, located to bilateral chest and nonradiating. She denies any alleviating or aggravating factors. Initial twelve lead electrocardiogram reveals atrial fibrillation with prolonged QTc interval. Initial troponin level of 10ng/L with flat trend t hereafter.Significant medical history includes unspecified atrial fibrillation on low-dose Eliquis/off antiarrhythmic, status post dual-chamber pacemaker implantation (Biotronik, 2016), hypertension, dyslipidemia, mitral valve regurgitation, type 2 diabetes mellitus, and anemia. Of note, the patient was offered a coronary angiogram on previous visit to this facility on 06/22/2024. The patient and her family refused for the patient to undergo any invasive cardiac workup at that time. The patient established care and followed up with patrol inspector in the outpatient setting. Per records, the patient underwent a nuclear stress test on 01/09/2025 which was negative for ischemia per report. Past Medical History Past medical history reviewed. No other significant than mentioned above. Past Surgical History Permanent pacemaker implantation (Biotronik), 2015 Family History: Cardiovascular disease G8 MOTHER, FHx: stomach cancer G8 FATHER, Family History Family history reviewed. Social History Denies the use of tobacco, alcohol or illicit drugs. Allergies: Coded Allergies: NO KNOWN ALLERGIES (Unverified , 06/21/24) Home Meds Reported Medications Digoxin (Digoxin) 125 Mcg Tab, 1 TAB PO DAILY 03/17/25 Potassium Chloride (POTASSIUM CHLORIDE CR) 10 Meq Tb, 8 MEQ PO DAILY, TAB 06/21/24 Memantine HCl-Donepezil HCl (Namzaric 7-10 mg) 1 Cap Cap, 1 CAP PO DAILY for MEMORY, CAP 06/21/24 Metoprolol Succinate (Metoprolol Succinate Er) 50 Mg Tab, 1 TAB PO DAILY, #30 TAB 5 Refills 06/21/24 Atorvastatin Calcium (ATORVASTATIN CALCIUM) 40 Mg Tab, 1 TAB PO AT NIGHT, #30 TAB 5 Refills 06/21/24 Furosemide (Furosemide) 20 Mg Tab, 1 TAB PO DAILY, #90 TAB 1 Refill 06/21/24 Ergocalciferol (VITAMIN D 25710 UNIT) 50,000 [place], [address] UNIT PO ONCE AT WEEK, CAP 06/21/24 Apixaban Base (ELIQUIS) 2.5 Mg Tab, 2.5 MG PO BID, TAB 06/21/24 Home Meds Home medications reviewed. Current Medications Current Medications Medications (Trade) Dose Ordered Sig/Becca Route PRN Reason Start Time Stop Time Status Last Admin Aspirin 81 mg DAILY PO 03/17/25 16:03 03/18/25 11:03 Atorvastatin Calcium (Lipitor) 40 mg HS PO 03/17/25 22:00 03/17/25 23:00 Morphine Sulfate 2 mg Q30MP PRN IV FOR CHEST PAIN 03/17/25 15:15 Acetaminophen (Tylenol Tablet) 650 mg Q6HP PRN PO MILD PAIN (1-3 PAIN SCALE) 03/17/25 15:15 03/18/25 11:39 Nitroglycerin (Ntrostat Sublingual) 0.4 mg Q5MINP PRN SL FOR CHEST PAIN 03/17/25 15:15 Ondansetron HCl (Zofran) 4 mg Q4HP PRN IV NAUSEA / VOMITING 03/17/25 15:15 Nitroglycerin (Ntrostat Sublingual) 0.4 mg Q5MINP PRN SL FOR CHEST PAIN 03/17/25 15:15 03/17/25 16:04 DC Morphine Sulfate 2 mg Q30M PRN IV FOR CHEST PAIN 03/17/25 15:15 03/17/25 16:04 DC Diagnostic Test (Pha) (Accu-Chek Comfort Curve T) 1 strip ACHS 03/17/25 17:00 03/18/25 11:27 Insulin Human Regular (InsuLIN R) ACHS SC 03/17/25 17:00 03/18/25 11:29 Dextrose 50 ml UD PRN IV Blood Sugar LESS THAN 60 03/17/25 15:15 Apixaban (Eliquis) 2.5 mg BID PO 03/17/25 22:00 03/18/25 11:04 Ergocalciferol (Vitamin D 50,000 Unit) 50,000 unit QWEEKLY PO 03/17/25 16:00 Hold Furosemide (Lasix Tablet) 20 mg DAILY PO 03/18/25 10:00 03/18/25 10:00 Metoprolol Succinate (Toprol Xl) 50 mg DAILY PO 03/18/25 10:00 Hold Fluoxetine HCl (PROzac CAPSULE) 10 mg DAILY PO 03/18/25 10:00 03/18/25 11:04 Patient Own Medication 1 cap DAILY PO 03/18/25 10:00 Potassium Chloride (Klor-Con Tablet) 8 meq DAILY PO 03/18/25 10:00 03/18/25 11:03 Digoxin (Lanoxin Tablet) 0.125 mg DAILY PO 03/18/25 10:00 03/18/25 11:02 Review of Systems Constitutional: No symptom reported Ears, Nose, & Throat: No symptom reported Eyes: No symptom reported Neurological: No symptoms reported Pulmonary/Respiratory: No symptoms reported Cardiovascular: Palpitations, chest pain Gastrointestinal: No symptom reported Genitourinary: No symptom reported Musculoskeletal: No symptom reported Skin: No symptom reported Psychiatric: No symptom reported Endocrine: No symptom reported Hematologic/Lymphatic: No symptom reported Vital Signs Vital Signs Date Time Temp Pulse Resp B/P (MAP) Pulse Ox O2 Delivery O2 Flow Rate FiO2 03/18/25 11:02 66 03/18/25 10:00 136/55 03/18/25 09:00 98.1 17 99 98.1 03/17/25 22:50 Room Air* 0 21 Physical Exam General Appearance: Cooperative. Well-developed. Well-nourished. No acute dist ress. Pulmonary/Respiratory: Clear, bilateral breaths sounds. Cardiovascular/Chest: Irregularly irregular rate and rhythm. Peripheral Pulses: 2+ Radial (R). 2+ Radial (L). 2+ Pedal (R). 2+ Pedal (L) Abdominal Exam: Normal bowel sounds. Ankle Exam: Negative ankle edema Lower extremities: Negative lower extremity edema Neuro/Mental Status: A/OX4, coherent. Thoughts/Psych: Normal thought pattern. Appropriate mood and affect. Good judgment and insight. Appearance: No acute distress. Skin Exam: Normal inspection. Normal color. Warm and dry. Labs/Diagnostic Data Labs Test 03/18/25 11:21 03/18/25 05:08 03/17/25 18:30 03/17/25 14:40 Range/Units POC Glucose 324 H 70-106 mg/dl White Blood Count 6.6 # 4.4-10.8 10^3/uL Red Blood Count 4.36 4.0-5.20 10^6/uL Hemoglobin 11.4 L 12.2-16.2 g/dL Hematocrit 34.7 L 36.0-46.0 % Mean Corpuscular Volume 79.5 L 80.0-100.0 fL Mean Corpuscular Hemoglobin 26.2 L 28.0-32.0 pg Mean Corpuscular Hemoglobin Concent 32.9 32.0-36.0 g/dL Red Cell Distribution Width 16.5 H 11.8-14.3 % Platelet Count 215 140-450 10^3/uL Mean Platelet Volume 8.7 6.9-10.8 fL Neutrophils (%) (Auto) 56.0 37.0-80.0 % Lymphocytes (%) (Auto) 32.2 10.0-50.0 % Monocytes (%) (Auto) 7.4 0.0-12.0 % Eosinophils (%) (Auto) 3.7 0.0-7.0 % Basophils (%) (Auto) 0.7 0.0-2.0 % Neutrophils # (Auto) 3.7 1.6-8.6 10 ^3/uL Lymphocytes # (Auto) 2.1 0.4-5.4 10 ^3/uL Monocytes # (Auto) 0.5 0-1.3 10 ^3/uL Eosinophils # (Auto) 0.2 0-0.8 10 ^3/uL Basophils # (Auto) 0 0-0.2 10 ^3/uL Nucleated Red Blood Cells 0.1 % Sodium Level 141 # 136-145 mmol/L Potassium Level 3.7 3.5-5.1 mmol/L Chloride Level 105 98-107 mmol/L Carbon Dioxide Level 25 20-31 mmol/L Anion Gap 11 5-15 Blood Urea Nitrogen 15 9-23 mg/dL Creatinine 1.03 H 0.550-1.02 mg/dL Glomerular Filtration Rate Calc 54 >90 mL/min BUN/Creatinine Ratio 14.6 10.0-20.0 Serum Glucose 225 H 74-106 mg/dL Calcium Level 9.1 8.7-10.4 mg/dL Magnesium Level 1.7 1.6-2.6 mg/dL Triglycerides Level 81 < 150 mg/dL Cholesterol Level 103 < 200 mg/dL LDL Cholesterol 53 < 100 mg/dL HDL Cholesterol 37 L 40-59 mg/dL Urine Color Yellow Yellow Urine Clarity Clear Clear Urine pH 5.5 5.0-9.0 Urine Specific [place] 1.029 1.001-1.035 Urine Protein Trace H Negative Urine Ketones Negative Negative Urine Blood Negative Negative /uL Urine Nitrite Negative Negative Urine Bilirubin Negative Negative Urine Urobilinogen Normal Negative mg/dL Urine Leukocyte Esterase Negative Negative /uL Urine RBC 4 0 - 4 /hpf Urine Microscopic WBC 2 0-5 /HPF Urine Squamous Epithelial Cells Few <5 /hpf Urine Bacteria None seen None Seen /hpf Urine Mucus Few None Seen Urine Glucose 4+ H Normal mg/dL Urine Opiates Screen Neg NEGATIVE Urine Fentanyl Screen Neg NEGATIVE Urine Barbiturates Screen Neg NEGATIVE Urine Phencyclidine Screen Neg NEGATIVE Urine Amphetamines Screen Neg NEGATIVE Urine Benzodiazepines Screen Neg NEGATIVE Urine Cocaine Screen Neg NEGATIVE Urine Cannabinoids Screen Neg NEGATIVE Troponin I High Sensitivity 10 </=34 ng/L Test 03/17/25 11:01 Range/Units D-Dimer, Quantitative 0.32 0.0-0.49 mg/L FEU Hemoglobin A1c 9.6 H <5.7 % A1C B-Type Natriuretic Peptide 97.30 0-100 pg/mL Free Thyroxine (T4) Calculated 1.09 0.89-1.76 ng/dL Assessment Chest pain, ruled out ACS Rule out structural heart disease Presence of dual-chamber pacemaker (Biotronik, 2016) Atrial fibrillation, likely persistent, on low-dose Eliquis/off antiarrhythmic Hypertension Dyslipidemia Mitral valve regurgitation Type 2 diabetes mellitus, uncontrolled (Hgb A1c 9.6%) Plan/Recommendation We will continue with the following plan/recommendations (Dr. Gardner): * Transthoracic echocardiogram to evaluate cardiac function * Transthoracic echocardiogram from 06/22/2024 reveals an EF of 55% * [id number] VASc score: 5 points, HAS-BLED score: 1 point * Beta-jan for rate control * Low-dose Eliquis * Hold antiarrhythmic agent given patient likely in persistent atrial fibrillation * Monitor and replete electrolytes as needed, keep potassium greater than four and magnesium greater than two * Close Cardiac surveillance Case discussed with . The patient who presents with palpitations and chest pain found to be in atrial fibrillation which is likely persistent. Patient is noted to have episodes of atrial fibrillation with rapid ventricular response. Continue with beta-jan for rate control and up titrate as needed. Continue with daily digoxin. The patient reports one episode of chest pain prior to admission. At the time of assessment, the patient denies any chest pain. Troponin levels during this admission have been negative. Patient noted to have a stress test on 01/09/2025 which was negative for ischemia. In the setting of an unremarkable transthoracic echocardiogram, there is no further inpatient cardiac workup indicated at this time. Thank you for allowing us to care for this patient. Please call with any questions or concerns. Critical care time spent: 44 minutes This medical document was created using an electronic medical record system with voice recognition software and computerized dictation system. Although this document has been carefully reviewed, there might still be some phonetic and typographical errors. Occasional wrong-word or ``sound-alike substitutions may have occurred due to the inherent limitations of voice recognition software. These areas are purely typographical due to imperfections of the software programs and do not reflect any compromise in the patient's medical care. Please read the chart carefully and recognize, using context, where these substitutions have occurred. Plan discussed with: Patient NYHA Physical activity limitations: NA Date of Service: Mar 18, 2025 Billing Provider: BOBO MELO Cardiology Common Codes: [id number] INP/OBS CARE (High) Cardiology Consultation Codes: [id number] CONSULT <45MIN BOBO MELO Mar 18, 2025 12:33
[2025-03-18] MEDS: MAGNESIUM SULFATE 1GM/100ML 100 ML IV ONE (14:09)
[2025-03-18] MEDS: METOPROLOL SUCCINATE XL 50 MG TAB PO ONE (14:09)
--- NOTE | 2025-03-18 16:17 | DVHSR ---
APPROVED REPORT EXAM: Two-dimensional and M-mode echocardiogram with Doppler and color Doppler. Blood Pressure: 119/51 mmHg INDICATION Chest Pain Surgery/Intervention Pacemaker: RISK FACTORS Height: 5'0", Weight: 116 DIMENSIONS LVDd4.3 (3.8-5.7cm)LA (2D)4.6 (1.9-4.0cm)Aortic Root2.8 (2.0-3.7cm) LVDs2.7 (2.5-4.0cm)LA (MM) (1.9-4.0cm)Aortic Cusp Exc1.5 (1.5-2.0cm) EF (%) 65.0 (55-70%)Rt. Atrium3.8 (1.9-4.0cm)Asc. Aorta cm IVSd1.0 (0.7-1.1cm)RV (D) (1.8-2.4cm) PWd1.1 (0.7-1.1cm) Mitral Valve MitralMitral Stenosis E wave1.08m/sMV Mean GR.mmHg A wave0.28m/sMV Peak GR.mmHg E/A ratio3.92D MVAcm2 DECEL [id number] 1/2 Timems Aortic Valve Aortic ValveAortic Stenosis V10.89m/Christine Mean GR.5mmHg V21.56m/Christine Peak GR.10mmHg LVOT Diameter1.8 (1.8-2.4cm)Doppler AVA1.45cm2 AI P 1/2 [id number] Pulmonic Valve V21.16m/s Tricuspid Valve TR Velocity3.29m/s [id number] Conclusion lvef 55% mild LVH restrictive LV filling pattern normal rv function marked atrial enlargement moderate mitral regurg mild to moderate aortic regurg moderate tricuspid regurg RV enlarged
[2025-03-19] VITALS (8 sets, daily range): BP systolic 98–108; BP diastolic 38–60; PULSE 60–85; RESP 15–18; TEMP 97.8–98.6; O2SAT 90–99
[2025-03-19] MEDS: METOPROLOL SUCCINATE XL 50 MG TAB PO SCH (10:00)
--- NOTE | 2025-03-19 11:53 | DVHPN2 ---
Reviewed: Care Plan, H&P, Labs, Medications, Previous Orders, Radiology Changes from previous H/P or p: No Changes Cardiovascular: Chest Pain, Palpitations Objective Vitals Vital Signs Date Time Temp Pulse Resp B/P (MAP) Pulse Ox O2 Delivery O2 Flow Rate FiO2 03/19/25 10:00 77 99/53 03/19/25 08:50 97.9 16 90 97.9 03/19/25 08:00 Room Air* 0 21 Intake/Output Intake and Output 03/19/25 07:00 Intake Total 2920 ml Balance 2920 ml Intake Oral 2920 ml # Voids 9 # Bowel Movements 2 Medications Current Medications Medications Dose Ordered Sig/Becca Route Start Time Stop Time Status Last Admin Dose Admin Aspirin 81 mg DAILY PO 03/17/25 16:03 03/19/25 11:14 81 MG Atorvastatin Calcium 40 mg HS PO 03/17/25 22:00 03/18/25 21:25 40 MG Morphine Sulfate 2 mg Q30MP PRN IV 03/17/25 15:15 Acetaminophen 650 mg Q6HP PRN PO 03/17/25 15:15 03/18/25 19:23 650 MG Nitroglycerin 0.4 mg Q5MINP PRN SL 03/17/25 15:15 Ondansetron HCl 4 mg Q4HP PRN IV 03/17/25 15:15 Diagnostic Test (Pha) 1 strip ACHS 03/17/25 17:00 03/19/25 11:30 1 STRIP Insulin Human Regular ACHS SC 03/17/25 17:00 03/19/25 11:33 4 UNITS Dextrose 50 ml UD PRN IV 03/17/25 15:15 Apixaban 2.5 mg BID PO 03/17/25 22:00 03/19/25 11:14 2.5 MG Ergocalciferol 50,000 unit QWEEKLY PO 03/17/25 16:00 Hold Furosemide 20 mg DAILY PO 03/18/25 10:00 03/18/25 10:00 20 MG Fluoxetine HCl 10 mg DAILY PO 03/18/25 10:00 03/19/25 11:14 10 MG Patient Own Medication 1 cap DAILY PO 03/18/25 10:00 Potassium Chloride 8 meq DAILY PO 03/18/25 10:00 03/19/25 11:15 8 MEQ Digoxin 0.125 mg DAILY PO 03/18/25 10:00 03/18/25 11:02 0.125 MG Metoprolol Succinate 25 mg DAILY PO 03/19/25 10:00 Laboratory Results Laboratory Tests 03/18/25 05:08 Urinalysis Test 03/17/25 18:30 Urine Color Yellow (Yellow) Urine Clarity Clear (Clear) Urine pH 5.5 (5.0-9.0) Urine Specific [place] 1.029 (1.001-1.035) Urine Protein Trace (Negative) H Urine Ketones Negative (Negative) Urine Blood Negative /uL (Negative) Urine Nitrite Negative (Negative) Urine Bilirubin Negative (Negative) Urine Urobilinogen Normal mg/dL (Negative) Urine Leukocyte Esterase Negative /uL (Negative) Urine RBC 4 /hpf (0 - 4) Urine Microscopic WBC 2 /HPF (0-5) Urine Squamous Epithelial Cells Few /hpf (<5) Urine Bacteria None seen /hpf (None Seen) Urine Mucus Few (None Seen) Urine Glucose 4+ mg/dL (Normal) H Labs and/or images reviewed: Labs reviewed by me, Image(s) reviewed by me Assessment/Plan Assessment/Plan Chest pain, ruled out ACS cardiology consult by Dr. Gardner appreciated Rule out structural heart disease Presence of dual-chamber pacemaker (Biotronik, 2016) Atrial fibrillation, likely persistent, on low-dose Eliquis/off antiarrhythmic started on beta jan and digoxin by Cardiology Hypertension Dyslipidemia Mitral valve regurgitation Type 2 diabetes mellitus, uncontrolled (Hgb A1c 9.6%) Chest x-ray negative DVT ruled out Urine drug screen is negative Cardiolite Stress test 01/09/2025 negative Son Gonzalez [phone] at bedside Time Spent 70 minutes Advanced care planning time 20 mts Patient is full code Plan discussed with: Patient My Orders Orders - SHAUNA HENSLEY MD Procedure Category Date Status Time * Cardiology Consult CONS 03/18/25 Transmitted 11:56 Date of Service: Mar 19, 2025 Billing Provider: SHAUNA HENSLEY MD Common Visit Codes: [id number] CARE 30-74 MIN Secondary Visit Codes: [id number] CARE PLAN 30 MINUTES SHAUNA HENSLEY MD Mar 19, 2025 11:53
--- NOTE | 2025-03-19 19:24 | ECG ---
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
[2025-03-20] VITALS (8 sets, daily range): BP systolic 92–131; BP diastolic 45–68; PULSE 65–98; RESP 16–19; TEMP 97–98.6; O2SAT 94–98
--- NOTE | 2025-03-20 13:42 | DVHPN2 ---
Reviewed: Care Plan, H&P, Labs, Medications, Previous Orders, Radiology Changes from previous H/P or p: No Changes Cardiovascular: Chest Pain, Palpitations Objective Vitals Vital Signs Date Time Temp Pulse Resp B/P (MAP) Pulse Ox O2 Delivery O2 Flow Rate FiO2 03/20/25 09:22 78 96/44 03/20/25 09:00 98.2 16 98 98.2 03/19/25 20:00 Room Air* 0 21 Intake/Output Intake and Output 03/20/25 07:00 Intake Total 1880 ml Balance 1880 ml Intake Oral 1880 ml # Voids 7 Medications Current Medications Medications Dose Ordered Sig/Becca Route Start Time Stop Time Status Last Admin Dose Admin Aspirin 81 mg DAILY PO 03/17/25 16:03 03/20/25 09:22 81 MG Atorvastatin Calcium 40 mg HS PO 03/17/25 22:00 03/19/25 21:24 40 MG Morphine Sulfate 2 mg Q30MP PRN IV 03/17/25 15:15 Acetaminophen 650 mg Q6HP PRN PO 03/17/25 15:15 03/18/25 19:23 650 MG Nitroglycerin 0.4 mg Q5MINP PRN SL 03/17/25 15:15 Ondansetron HCl 4 mg Q4HP PRN IV 03/17/25 15:15 Diagnostic Test (Pha) 1 strip ACHS 03/17/25 17:00 03/20/25 12:52 1 STRIP Insulin Human Regular ACHS SC 03/17/25 17:00 03/20/25 11:30 3 UNITS Dextrose 50 ml UD PRN IV 03/17/25 15:15 Apixaban 2.5 mg BID PO 03/17/25 22:00 03/20/25 09:22 2.5 MG Ergocalciferol 50,000 unit QWEEKLY PO 03/17/25 16:00 Hold Furosemide 20 mg DAILY PO 03/18/25 10:00 03/18/25 10:00 20 MG Fluoxetine HCl 10 mg DAILY PO 03/18/25 10:00 03/20/25 09:22 10 MG Patient Own Medication 1 cap DAILY PO 03/18/25 10:00 Potassium Chloride 8 meq DAILY PO 03/18/25 10:00 03/20/25 09:21 8 MEQ Digoxin 0.125 mg DAILY PO 03/18/25 10:00 03/20/25 09:22 0.125 MG Metoprolol Succinate 25 mg DAILY PO 03/19/25 10:00 Laboratory Results Laboratory Tests 03/18/25 05:08 Urinalysis Test 03/17/25 18:30 Urine Color Yellow (Yellow) Urine Clarity Clear (Clear) Urine pH 5.5 (5.0-9.0) Urine Specific [place] 1.029 (1.001-1.035) Urine Protein Trace (Negative) H Urine Ketones Negative (Negative) Urine Blood Negative /uL (Negative) Urine Nitrite Negative (Negative) Urine Bilirubin Negative (Negative) Urine Urobilinogen Normal mg/dL (Negative) Urine Leukocyte Esterase Negative /uL (Negative) Urine RBC 4 /hpf (0 - 4) Urine Microscopic WBC 2 /HPF (0-5) Urine Squamous Epithelial Cells Few /hpf (<5) Urine Bacteria None seen /hpf (None Seen) Urine Mucus Few (None Seen) Urine Glucose 4+ mg/dL (Normal) H Labs and/or images reviewed: Labs reviewed by me, Image(s) reviewed by me Assessment/Plan Assessment/Plan Chest pain, ruled out ACS cardiology consult by Dr. Gardner appreciated Rule out structural heart disease Presence of dual-chamber pacemaker (Biotronik, 2016) Atrial fibrillation, likely persistent, on low-dose Eliquis/off antiarrhythmic started on beta jan and digoxin by Cardiology Hypertension Dyslipidemia Mitral valve regurgitation Type 2 diabetes mellitus, uncontrolled (Hgb A1c 9.6%) Chest x-ray negative DVT ruled out Urine drug screen is negative Cardiolite Stress test 01/09/2025 negative Son Gonzalez [phone] at bedside Time Spent 60 minutes Advanced care planning time 20 mts Patient is full code Plan discussed with: Patient Date of Service: Mar 20, 2025 Billing Provider: SHAUNA HENSLEY MD Common Visit Codes: [id number] INP/OBS CARE(HIGH) SHAUNA HENSLEY MD Mar 20, 2025 13:42
[2025-03-21] VITALS (8 sets, daily range): BP systolic 94–115; BP diastolic 35–61; PULSE 54–85; RESP 15–19; TEMP 97.6–98.4; O2SAT 62–99
--- NOTE | 2025-03-21 11:50 | DVHPN2 ---
Reviewed: Care Plan, H&P, Labs, Medications, Previous Orders, Radiology Changes from previous H/P or p: No Changes Cardiovascular: Chest Pain, Palpitations Objective Vitals Vital Signs Date Time Temp Pulse Resp B/P (MAP) Pulse Ox O2 Delivery O2 Flow Rate FiO2 03/21/25 09:00 98.3 64 15 104/55 (71) 99 98.3 03/21/25 07:30 Room Air* 0 21 Intake/Output Intake and Output 03/21/25 07:00 Intake Total 1450 ml Balance 1450 ml Intake Oral 1450 ml # Voids 11 # Bowel Movements 1 Medications Current Medications Medications Dose Ordered Sig/Becca Route Start Time Stop Time Status Last Admin Dose Admin Aspirin 81 mg DAILY PO 03/17/25 16:03 03/21/25 08:56 81 MG Atorvastatin Calcium 40 mg HS PO 03/17/25 22:00 03/20/25 20:01 40 MG Morphine Sulfate 2 mg Q30MP PRN IV 03/17/25 15:15 Acetaminophen 650 mg Q6HP PRN PO 03/17/25 15:15 03/20/25 20:00 650 MG Nitroglycerin 0.4 mg Q5MINP PRN SL 03/17/25 15:15 Ondansetron HCl 4 mg Q4HP PRN IV 03/17/25 15:15 Diagnostic Test (Pha) 1 strip ACHS 03/17/25 17:00 03/21/25 11:31 1 STRIP Insulin Human Regular ACHS SC 03/17/25 17:00 03/21/25 11:33 3 UNITS Dextrose 50 ml UD PRN IV 03/17/25 15:15 Apixaban 2.5 mg BID PO 03/17/25 22:00 03/21/25 08:56 2.5 MG Ergocalciferol 50,000 unit QWEEKLY PO 03/17/25 16:00 Hold Furosemide 20 mg DAILY PO 03/18/25 10:00 03/21/25 08:57 20 MG Fluoxetine HCl 10 mg DAILY PO 03/18/25 10:00 03/21/25 08:58 10 MG Patient Own Medication 1 cap DAILY PO 03/18/25 10:00 Potassium Chloride 8 meq DAILY PO 03/18/25 10:00 03/21/25 08:56 8 MEQ Digoxin 0.125 mg DAILY PO 03/18/25 10:00 03/21/25 08:58 0.125 MG Metoprolol Succinate 25 mg DAILY PO 03/19/25 10:00 03/21/25 08:58 25 MG Laboratory Results Laboratory Tests 03/18/25 05:08 Urinalysis Test 03/17/25 18:30 Urine Color Yellow (Yellow) Urine Clarity Clear (Clear) Urine pH 5.5 (5.0-9.0) Urine Specific [place] 1.029 (1.001-1.035) Urine Protein Trace (Negative) H Urine Ketones Negative (Negative) Urine Blood Negative /uL (Negative) Urine Nitrite Negative (Negative) Urine Bilirubin Negative (Negative) Urine Urobilinogen Normal mg/dL (Negative) Urine Leukocyte Esterase Negative /uL (Negative) Urine RBC 4 /hpf (0 - 4) Urine Microscopic WBC 2 /HPF (0-5) Urine Squamous Epithelial Cells Few /hpf (<5) Urine Bacteria None seen /hpf (None Seen) Urine Mucus Few (None Seen) Urine Glucose 4+ mg/dL (Normal) H Labs and/or images reviewed: Labs reviewed by me, Image(s) reviewed by me Assessment/Plan Assessment/Plan Chest pain, coronary artery disease ruled out, cardiology consult by Dr. Gardner appreciated Rule out structural heart disease Presence of dual-chamber pacemaker ([employer], 2016) Atrial fibrillation, likely persistent, on low-dose Eliquis/off antiarrhythmic started on beta jan and digoxin by Cardiology Hypertension Dyslipidemia Mitral valve regurgitation Type 2 diabetes mellitus, uncontrolled (Hgb A1c 9.6%) Chest x-ray negative DVT ruled out Urine drug screen is negative Cardiolite Stress test 01/09/2025 negative Son Gonzalez [phone] at bedside Daughter Audra [phone] at bedside Time Spent 60 minutes Advanced care planning time 20 mts Patient is full code Physical therapy ordered Plan discussed with: Patient Date of Service: Mar 21, 2025 Billing Provider: SHAUNA HENSLEY MD Common Visit Codes: [id number] INP/OBS CARE(HIGH) SHAUNA HENSLEY MD Mar 21, 2025 11:50
[2025-03-22 05:00] VITALS: BP 103/51; PULSE 60; RESP 16; TEMP 98.4; O2SAT 90
[2025-03-22 08:00] VITALS: PULSE 63
[2025-03-22 08:35] VITALS: BP 129/65; PULSE 61; RESP 17; TEMP 96.9; O2SAT 100
[2025-03-22] MEDS ORDERED: DIGO0.12 PO (11:37)
[2025-03-22] MEDS ORDERED: POTA-36 PO (11:37)
[2025-03-22] MEDS ORDERED: METO25TA93 PO (11:37)
[2025-03-22] MEDS ORDERED: FURO1TAB31 PO (11:37)
[2025-03-22] MEDS ORDERED: ATOR-507 PO (11:37)
[2025-03-22] MEDS ORDERED: APIX2.5T PO (11:37)
--- NOTE | 2025-03-22 11:40 | DVHDS2 ---
Discharge Summary Date of Admission Mar 17, 2025 at 15:08 Date of Discharge: Mar 22, 2025 Admitting Diagnosis Chest pain Wounds: None Labs/Diagnostic Data: Laboratory Results Test 03/22/25 11:01 03/20/25 04:46 03/18/25 05:08 03/17/25 18:30 POC Glucose 238 mg/dl (70-106) Digoxin Level 1.08 ng/mL (0.8-2) White Blood Count 6.6 10^3/uL (4.4-10.8) Red Blood Count 4.36 10^6/uL (4.0-5.20) Hemoglobin 11.4 g/dL (12.2-16.2) Hematocrit 34.7 % (36.0-46.0) Mean Corpuscular Volume 79.5 fL (80.0-100.0) Mean Corpuscular Hemoglobin 26.2 pg (28.0-32.0) Mean Corpuscular Hemoglobin Concent 32.9 g/dL (32.0-36.0) Red Cell Distribution Width 16.5 % (11.8-14.3) Platelet Count 215 10^3/uL (140-450) Mean Platelet Volume 8.7 fL (6.9-10.8) Neutrophils (%) (Auto) 56.0 % (37.0-80.0) Lymphocytes (%) (Auto) 32.2 % (10.0-50.0) Monocytes (%) (Auto) 7.4 % (0.0-12.0) Eosinophils (%) (Auto) 3.7 % (0.0-7.0) Basophils (%) (Auto) 0.7 % (0.0-2.0) Neutrophils # (Auto) 3.7 10 ^3/uL (1.6-8.6) Lymphocytes # (Auto) 2.1 10 ^3/uL (0.4-5.4) Monocytes # (Auto) 0.5 10 ^3/uL (0-1.3) Eosinophils # (Auto) 0.2 10 ^3/uL (0-0.8) Basophils # (Auto) 0 10 ^3/uL (0-0.2) Nucleated Red Blood Cells 0.1 % Sodium Level 141 mmol/L (136-145) Potassium Level 3.7 mmol/L (3.5-5.1) Chloride Level 105 mmol/L (98-107) Carbon Dioxide Level 25 mmol/L (20-31) Anion Gap 11 (5-15) Blood Urea Nitrogen 15 mg/dL (9-23) Creatinine 1.03 mg/dL (0.550-1.02) Glomerular Filtration Rate Calc 54 mL/min (>90) BUN/Creatinine Ratio 14.6 (10.0-20.0) Serum Glucose 225 mg/dL (74-106) Calcium Level 9.1 mg/dL (8.7-10.4) Magnesium Level 1.7 mg/dL (1.6-2.6) Triglycerides Level 81 mg/dL (< 150) Cholesterol Level 103 mg/dL (< 200) LDL Cholesterol 53 mg/dL (< 100) HDL Cholesterol 37 mg/dL (40-59) Thyroid Stimulating Hormone (TSH) 1.99 uIU/mL (0.55-4.78) Urine Color Yellow (Yellow) Urine Clarity Clear (Clear) Urine pH 5.5 (5.0-9.0) Urine Specific [place] 1.029 (1.001-1.035) Urine Protein Trace (Negative) Urine Ketones Negative (Negative) Urine Blood Negative /uL (Negative) Urine Nitrite Negative (Negative) Urine Bilirubin Negative (Negative) Urine Urobilinogen Normal mg/dL (Negative) Urine Leukocyte Esterase Negative /uL (Negative) Urine RBC 4 /hpf (0 - 4) Urine Microscopic WBC 2 /HPF (0-5) Urine Squamous Epithelial Cells Few /hpf (<5) Urine Bacteria None seen /hpf (None Seen) Urine Mucus Few (None Seen) Urine Glucose 4+ mg/dL (Normal) Urine Opiates Screen Neg (NEGATIVE) Urine Fentanyl Screen Neg (NEGATIVE) Urine Barbiturates Screen Neg (NEGATIVE) Urine Phencyclidine Screen Neg (NEGATIVE) Urine Amphetamines Screen Neg (NEGATIVE) Urine Benzodiazepines Screen Neg (NEGATIVE) Urine Cocaine Screen Neg (NEGATIVE) Urine Cannabinoids Screen Neg (NEGATIVE) Test 03/17/25 14:40 03/17/25 11:01 Troponin I High Sensitivity 10 ng/L (</=34) D-Dimer, Quantitative 0.32 mg/L FEU (0.0-0.49) Hemoglobin A1c 9.6 % A1C (<5.7) B-Type Natriuretic Peptide 97.30 pg/mL (0-100) Free Thyroxine (T4) Calculated 1.09 ng/dL (0.89-1.76) Other Laboratory Tests 03/18/25 05:08 Brief Hx & Hospital Course: Year-old female with a history of hypertension atrial fibrillation on Eliquis hypercholesterolemia mitral valve regurgitation diabetes came in for chest pain troponin was negative x3 seen by Cardiology Dr. Khalil coronary artery disease ruled out stress test [id number] urine drug screen negative DVT ruled out chest x- ray negative. The patient has a dual-chamber pacemaker which was interrogated working well patient continued on Eliquis for atrial abrasion cardiology added metoprolol succinate and digoxin patient feels better with a stable vital signs and being discharged home on home health for safety evaluation medication management and physical therapy. Daughter at the bedside who agrees with the discharge plan Consults/Reason for consult Cardiology Operations or Procedures Echocardiogram Condition at Discharge: Fair Final Diagnosis/Problems List Chest pain, coronary artery disease ruled out, cardiology consult by Dr. Gardner appreciated Rule out structural heart disease Presence of dual-chamber pacemaker ([email or web address], 2016) Atrial fibrillation, likely persistent, on low-dose Eliquis/off antiarrhythmic started on beta jan and digoxin by Cardiology Hypertension Dyslipidemia Mitral valve regurgitation Type 2 diabetes mellitus, uncontrolled (Hgb A1c 9.6%) Chest x-ray negative DVT ruled out Urine drug screen is negative Cardiolite Stress test 01/09/2025 negative Discharge Disposition: Home with Health Services Discharge Instruct/Medications Diet: Cardiac 2g Na,low cholest Activity: Light activity Follow Up/Referral: Follow up with the primary Dr in one week Resume all previous home meds Medications: Lipitor Eliquis Lasix Digoxin Potassium chloride Metoprolol succinate Transmitted to pharmacy Scheduled Apixaban Base (Eliquis), 2.5 MG PO BID, (Reported) Apixaban Base (Eliquis), 2.5 MG PO BID Atorvastatin Calcium (Atorvastatin Calcium), 1 TAB PO AT NIGHT, (Reported) Atorvastatin Calcium (Lipitor), 1 TAB PO DAILY Digoxin (Digoxin), 1 TAB PO DAILY, (Reported) Digoxin (Digoxin), 125 MCG PO DAILY Ergocalciferol (Vitamin D 54404 Unit), 50,000 UNIT PO ONCE AT WEEK, (Reported) Furosemide (Furosemide), 1 TAB PO DAILY, (Reported) Furosemide (Lasix), 40 MG PO DAILY Memantine HCl-Donepezil HCl (Namzaric 7-10 mg), 1 CAP PO DAILY, (Reported) Metoprolol Succinate (Metoprolol Succinate Er), 1 TAB PO DAILY, (Reported) Metoprolol Succinate (Metoprolol Succinate Er), 1 TAB PO DAILY Potassium Chloride (Potassium Chloride Cr), 8 MEQ PO DAILY, (Reported) Potassium Chloride (Potassium Chloride Cr), 1 TAB PO DAILY 39 (Time taken for discharge summary 39 minutes) Discharge Statement: "Patient was advised to return to the ER or call 911 if any headaches, dizziness, shortness of breath, chest pain, abdominal pain, bleeding, fevers, or worsening of medical condition. Patient was counseled about treatment plan, medications, possible side effects, patientverbalized understanding. All questions were answered to the best of my ability. This discharge took greater then 30 minutes in planning, reviewing documentation, counseling the patient, and discussing with other team members." ASSESSMENT ASSESSMENT Hospital Course Improved Assessment Chest pain, coronary artery disease ruled out, cardiology consult by Dr. Gardner appreciated Rule out structural heart disease Presence of dual-chamber pacemaker ([email or web address], 2016) Atrial fibrillation, likely persistent, on low-dose Eliquis/off antiarrhythmic started on beta jan and digoxin by Cardiology Hypertension Dyslipidemia Mitral valve regurgitation Type 2 diabetes mellitus, uncontrolled (Hgb A1c 9.6%) Chest x-ray negative DVT ruled out Urine drug screen is negative Cardiolite Stress test 01/09/2025 negative Date of Service: Mar 22, 2025 Billing Provider: SHAUNA HENSLEY MD Common Visit Codes: 59879-OXF/OBS DISCH DAY >30min SHAUNA HENSLEY MD Mar 22, 2025 11:40
[2025-03-22 12:36] VITALS: BP 107/45; PULSE 59; RESP 15; TEMP 97.7; O2SAT 96
[2025-03-22 15:34] VITALS: BP 107/45; PULSE 59; RESP 15; TEMP 97.1; O2SAT 96
== END 2025-03-22 16:45 | disposition home health service (06) | DRG 309 ==
LOC: ER 10:30 → OVERFLOW 15:08 → TELE-WESTW 22:42
PROVIDERS: ADMIT Family Medicine; ATTEND Family Medicine
DX: I48.19 Other persistent atrial fibrillation (principal); N17.9 Acute kidney failure, unspecified; I50.9 Heart failure, unspecified; I11.0 Hypertensive heart disease with heart failure; E11.9 Type 2 diabetes mellitus without complications; I34.0 Nonrheumatic mitral (valve) insufficiency; E78.5 Hyperlipidemia, unspecified; E78.00 Pure hypercholesterolemia, unspecified; Z95.0 Presence of cardiac pacemaker; Z86.718 Personal history of other venous thrombosis and embolism; Z83.3 Family history of diabetes mellitus; Z82.49 Family history of ischemic heart disease and other diseases of the circulatory system; Z80.0 Family history of malignant neoplasm of digestive organs; Z79.01 Long term (current) use of anticoagulants
CPT/HCPCS: 36415; 71045; 80048; 80061; 80162; 80307; 81001; 82962; 83036; 83735; 83880; 84439; 84443; 84484; 85025; 85379; 86850; 86900; 86901; 93005; 93306; 93970; 96360; 97163; G0378; J1815